=== PATIENT | male | born 1955 | race Caucasian/White ===

== ENCOUNTER → 2016-10-28 | Outpatient (CLI) | payer BC ==
[2016-10-28 11:36] LABS: ALT 36 U/L (21-72); AST 19 U/L (17-59); Alkaline Phosphatase 93 U/L (38-126); Anion Gap 9 mmol/L; Bilirubin, Delta 0.4 mg/dL (0.0-0.2); Blood Urea Nitrogen 29 mg/dL (9-20); Calcium 9.3 mg/dL (8.4-10.2); Carbon Dioxide 32 mmol/L (22-30); Chloride 102 mmol/L (98-107); Cholesterol 190 mg/dL (<200); Glucose 94 mg/dL (74-99); HDL Cholesterol 56 mg/dL (40-60); Non-African American GFR(MDRD) >60 (>60 ml/min/1.73 sqM); Potassium 4.7 mmol/L (3.5-5.1); Sodium 143 mmol/L (137-145); Total Bilirubin 0.7 mg/dL (0.2-1.3); Total Protein 6.6 g/dL (6.3-8.2); Triglycerides 103 mg/dL (<150)
== END | disposition home or self-care (01) ==
LOC: LABWHC1 10-27 11:57
PROVIDERS: ATTEND Physician Assistant
DX: E78.5 Hyperlipidemia, unspecified (principal); D72.829 Elevated white blood cell count, unspecified; I10 Essential (primary) hypertension; I50.9 Heart failure, unspecified; R05 Cough; Z95.0 Presence of cardiac pacemaker
CPT/HCPCS: 36415; 80048; 80061; 80076; 83880

== ENCOUNTER → 2017-03-12 | Outpatient (CLI) | payer BC ==
[2017-03-12 11:09] LABS: Bilirubin, Delta 0.4 mg/dL (0.0-0.2); Total Bilirubin 0.9 mg/dL (0.2-1.3); Total Protein 6.1 g/dL (6.3-8.2)
--- NOTE | 2017-03-12 12:11 | ECHOF ---
Referral Reason:E78.5 hyperlipidemia I50.22 chf I10 htn MEASUREMENTS -------- HEIGHT: 182.9 cm WEIGHT: 127.0 kg BP: IVSd: 1.6 cm (0.6 - 1.1) LVIDd: 5.6 cm (3.9 - 5.3) LVPWd: 1.5 cm (0.6 - 1.1) IVSs: 2.0 cm LVIDs: 4.7 cm LVPWs: 2.0 cm LAESV Index (A-L): 29.69 ml/m Ao Diam: 4.0 cm (2.0 - 3.7) AV Cusp: 2.8 cm (1.5 - 2.6) LA Diam: 4.7 cm (2.7 - 3.8) MV EXCURSION: 14.056 mm (> 18.000) MV EF SLOPE: 44 mm/s (70 - 150) EPSS: 1.7 cm MV E Kurtis: 0.76 m/s MV DecT: 325 ms MV A Kurtis: 1.04 m/s MV E/A Ratio: 0.73 AR PHT: 617 ms RAP: 5.00 mmHg RVSP: 27.92 mmHg FINDINGS -------- Sinus rhythm. Pacemaker This was a technically adequate study. There is moderate concentric left ventricular hypertrophy. There is moderate global hypokinesis of LV . Overall left ventricular systolic function is mild-moderately impaired with, an EF between 40 - 45 %. The right ventricle is normal in size and function. LA is midly dilated 29-33ml/m2. The right atrium is normal in size. The aortic valve is trileaflet, and appears structurally normal. No aortic stenosis or regurgitation. There is mild aortic regurgitation. The mitral valve is normal. Mild mitral regurgitation is present. Mild tricuspid regurgitation present. The right ventricular systolic pressure, as measured by Doppler, is 27.92mmHg. Trace/mild (physiologic) pulmonic regurgitation. The aortic root is mildy dilated. There is no pericardial effusion. CONCLUSIONS -------- 1. Sinus rhythm. 2. The right ventricular systolic pressure, as measured by Doppler, is 27.92mmHg. 3. Trace/mild (physiologic) pulmonic regurgitation. 4. The aortic root is mildy dilated. 5. There is no pericardial effusion. 6. This was a technically adequate study. 7. There is moderate concentric left ventricular hypertrophy. 8. Overall left ventricular systolic function is mild-moderately impaired with, an EF between 40 - 45 %. 9. LA is midly dilated 29-33ml/m2. 10. The aortic valve is trileaflet, and appears structurally normal. No aortic stenosis or regurgitation. 11. There is mild aortic regurgitation. 12. Mild mitral regurgitation is present. 13. Mild tricuspid regurgitation present. BATCH MIXER: Jelena Pinto RDCS
== END | disposition home or self-care (01) ==
LOC: RADECHMAIN 10:05
PROVIDERS: ATTEND Physician Assistant
DX: I08.3 Combined rheumatic disorders of mitral, aortic and tricuspid valves (principal); I42.8 Other cardiomyopathies; I11.0 Hypertensive heart disease with heart failure; I50.22 Chronic systolic (congestive) heart failure; E78.5 Hyperlipidemia, unspecified
CPT/HCPCS: 36415; 80061; 80076; 93306

== ENCOUNTER → 2017-03-22 | Outpatient (CLI) | payer BC ==
--- NOTE | 2017-03-22 15:32 | CONS ---
DATE OF CONSULTATION: 03/22/2017 CONSULTATION/NEW PATIENT EVALUATION A 61-year-old gentleman who has been evaluated in the [facility] for obstructive sleep apnea-hypopnea syndrome. 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 HISTORY OF PRESENT ILLNESS/SLEEP-WAKE EVALUATION: Patient had been diagnosed with obstructive sleep apnea about 8 years ago. Since that time he is on treatment with CPAP. He changed his CPAP unit about 6 years ago. He continued to use his CPAP equipment every night. I checked the reading from his machine. It showed 98.9% usage of the machine, 78.9% for more than 4 hours. Machine is on automatic regimen according to this reading with the range of the pressure from 12 cm of water up to 20 cm of water. Average pressure in the mean range is 12.5 cm of water and a peak average pressure 14.9 cm of water, apnea-hypopnea index reading from the machine is 1.1, which is normal. SLEEP SCHEDULE: Patient has sleep schedule on working days from around 9:00 p.m. until 4:15 a.m. and on days off, he sleeps around 10 or 11:00 p.m. until 7:00 a.m. FALLING ASLEEP: No problem falling asleep. No TV in bedroom. DURING SLEEP: Patient sleeps by himself. Wakes up from sleep 2 times with nocturia. No history of hypnagogical hallucinations, sleep paralysis or cataplexy. DURING THE DAY/WAKE STATE: [place] Sleepiness Scale is 4. Patient sometimes takes naps in the late morning around 10 or 10:30 a.m. PAST MEDICAL HISTORY: Positive for atrial flutter status post cardiac ablation, hypertension, swelling of the legs, hyperlipidemia, hiatal hernia, perforated colon. Asthma possibly secondary to allergies. PAST SURGICAL HISTORY: Surgery for perforated colon, left ankle fusion, pacemaker insertion, ablation. MEDICATIONS: Lasix, Coreg, Lisinopril, Flomax, Eliquis, Allopurinol, omeprazole, simvastatin, albuterol, Betapace. SOCIAL HISTORY: Positive for smoking for about 20 years; quit 10 years ago. Alcohol consumption occasional, wine up to 2 times per week 2 drinks. FAMILY HISTORY: Hypertension, heart problems, arthritis, sleep apnea, acid reflux. REVIEW OF SYSTEMS: Awakenings from sleep with nocturia, sometimes swelling of the legs, sometimes episodes of shortness of breath and wheezing. No fevers. No double vision. No recent chest pain. No shortness of breath. No abdominal pain. No bleeding episodes. No blood in urine. No seizure episodes. PHYSICAL EXAMINATION: GENERAL: A pleasant 61-year-old gentleman without distress. VITAL SIGNS: BP 151/82, HR 78, RR 16. Height 5 feet 10-1/2, weight 285. BMI 40, neck 18-3/4 inches in circumference. Temperature 97.8. Oxygen saturation at room air 96%. HEENT: PERRLA, EOMI. Evaluation of oropharynx showed extremely low position of soft palate. NECK: Supple. No JVD. Thyroid is not palpable. LUNGS: Clear to percussion and to auscultation. Good air exchange. No wheezing or rhonchi. HEART: S1, S2 regular. No murmurs, gallops or rubs. ABDOMEN: Obese. Soft and nontender. Bowel sounds are present. No organomegaly appreciated. EXTREMITIES: 1+ ankle edema on the left ankle. LANDSCAPING SPECIALIST: Awake, alert, and oriented x3. Cranial nerves 2 to 7 intact. There is no fasciculation or atrophy noted. No focal deficits observed. IMPRESSION: 1. Extremely low position of soft palate, obesity, history of obstructive sleep apnea diagnosed in different institution 8 years ago on treatment with CPAP every night, reading from the machine indicates normal apnea-hypopnea index. 2. Obesity. 3. Hypertension. 4. History of atrial flutter, status post cardiac ablation. 5. Asthma. 6. History of allergy. 7. Status post surgery for repair of a perforated colon. 8. Hyperlipidemia. 9. Hiatal hernia and acid reflux. 10. Swelling of ankle. 11. Status post left ankle fusion surgery. PLAN: 1. Patient will continue to use CPAP equipment every night for the whole night and she should use it 100% of the night, more than 4 hours. 2. Losing weight. 3. Will try to get results of previous sleep studies for the patient. 4. Precautions related to driving. No driving if feeling any sleepiness. The patient is aware about civil and criminal liability for unsafe driving. 5. I would recommend maintenance of wakefulness test for confirmation that patient has normal alertness during the day. Thank you very much for referring this patient for consultation. Sincerely, Ahsan Diehl MD, PhD, FAASM. Diplomat of [employer], Sleep Medicine Board by [employer] [facility] [place]
== END | disposition home or self-care (01) ==
LOC: SLEEP 09:52
PROVIDERS: ATTEND Internal Medicine
DX: G47.33 Obstructive sleep apnea (adult) (pediatric) (principal); Z79.899 Other long term (current) drug therapy; Z87.891 Personal history of nicotine dependence; K21.9 Gastro-esophageal reflux disease without esophagitis; E66.9 Obesity, unspecified; Z68.41 Body mass index [BMI] 40.0-44.9, adult; I10 Essential (primary) hypertension; E78.5 Hyperlipidemia, unspecified; J45.909 Unspecified asthma, uncomplicated; M25.473 Effusion, unspecified ankle; I48.92 Unspecified atrial flutter; Z98.890 Other specified postprocedural states; Z91.09 Other allergy status, other than to drugs and biological substances

== ENCOUNTER → 2017-06-20 | Day surgery (SDC) | payer BC ==
[~2017-06-20] MED LIST: DIAZEPAM 5 MG TAB PO STA; HYDROcodone/APAP 5-325MG 1 EACH TAB PO PRN; PREMYELOGRAM MEDICATION REVIEW 1 EACH MISC PO ONE
[2017-06-20 10:05] VITALS: RESP 20
--- NOTE | 2017-06-20 10:31 | FL ---
EXAMINATION TYPE: FL myelogram cervical DATE OF EXAM: 06/20/2017 COMPARISON: CT abdomen pelvis July 11, 2016. HISTORY: Cervical disc displacement per order. History of pacemaker. TECHNIQUE: Fluoroscopic assisted myelogram. A total of 3 minutes 48 seconds of fluoroscopic time was utilized during procedure. A total of 12 cc of Omnipaque 240 was injected. FINDINGS: Procedure of fluoroscopic assisted lumbar myelogram for subsequent CT cervical spine was ex plained to patient. Benefits alternatives, and risks were discussed. An informed consent was then obt ained. Patient was placed in prone position. Prior CT is reviewed and shows cord terminates at superior L2 l evel. There is scoliosis with multilevel disc space narrowing and spurring noted. Superior L3 level i s chosen as target. Overlying skin is cleansed with Betadine. Lidocaine is used as anesthetic into th e skin and deeper tissue. Under fluoroscopic guidance, lumbar spinal canal is accessed with a 20-gaug e spinal needle. At this point under fluoroscopic guidance contrast was instilled into spinal canal. At this point nee dle was withdrawn. There is successful filling of spinal canal seen on images saved. Incidental note is made of some spinal canal stenosis at L3-L4 to greater degree at L4-L5 levels along lateral aspect . Patient is placed in reverse Trendelenburg position to allow flow to the cervical spine with neck f lexed. The patient was taken to CT for CT imaging. This report will be dictated separately. Vital signs were monitored and were stable before, during, and after the procedure. Interventional radiology nurse wa s available throughout the entire procedure. IMPRESSION: Successful, uncomplicated fluoroscopic assisted lumbar myelogram for contrast injection f or subsequent CT study.
[2017-06-20 10:40] VITALS: TEMP 97.8
--- NOTE | 2017-06-20 10:44 | CT ---
EXAMINATION TYPE: CT cervical spine w con DATE OF EXAM: 06/20/2017 COMPARISON: CT cervical spine March 08, 2016 HISTORY: Cervical disc displacement CT DLP: 936.20 mGycm. Automated Exposure Control for Dose Reduction was Utilized. TECHNIQUE: CT scan of the cervical spine is obtained with intrathecal contrast, axial images are obt ained, sagittal and coronal reformatted images are also reviewed. FINDINGS: Cervical spine is visualized in its entirety from C1 through upper thoracic levels. There is redemonstration of a prominent rotary dextroconvex scoliosis centered at C5 level with moderate he ight loss of the left C6 vertebra and mild height loss of the anterior left C7 vertebra redemonstrate d both which appear sclerotic. There is loss of normal cervical curvature on sagittal images redemons trated. Prevertebral soft tissue appears within normal limits. The C1-C2 articulation is within norm al limits on the coronal images. Successful contrast opacification of cervical spinal canal is noted. Axial images at C2-C3 level shows small focal central disc protrusion mildly effacing anterior thecal sac seen best on axial image 22 less pronounced on sagittal images. There are uncovertebral facet de generative changes bilaterally causing severe right and moderate left-sided neural foraminal narrowin g. Axial images at C3-C4 level show uncovertebral facet degenerative changes bilaterally, right greater than left causing moderate to severe bilateral neural foraminal narrowing. There is right paracentral posterior spur disc complex effacing anterolateral thecal sac on axial image 28. Images at C4-C5 level show slight grade 1 anterolisthesis of C4 on C5 seen best on sagittal image 30 along right aspect. There is posterior spur disc complex effacing anterior thecal sac nearly up to ve ntral surface of spinal cord on axial image 36. There is mild to moderate left-sided neural foraminal narrowing due to marginal spurring. There is more mild right-sided neural foraminal narrowing at thi s level identified. Axial images at C5-C6 level show prominent posterior spur effacing anterior thecal sac up to ventral surface of spinal cord which is indented on axial image 42. There is prominent left-sided marginal sp urring causing advanced left-sided neural foraminal narrowing. Right-sided neural foramina is widely patent on axial image 39. Axial images at C6-C7 level show prominent posterior spur disc complex effacing anterior thecal sac w ith cord left of midline near axial image 49, spurring extends to ventral surface of spinal cord. The re is moderate to severe left-sided neural foraminal narrowing due to marginal spurring near axial im age 46. Right-sided neural foramen is patent. Axial images at C7-T1 level show improvement on spinal canal near axial image 55 through 58. There is slight grade 1 anterolisthesis of C7 on T1 along left aspect with some posterior in left lateral spu rring effacing anterior and left lateral thecal sac near axial image 57. This is confirmed near coron al images 58 and 59 with some effacement of central C7 nerve likely present. Left-sided neural forame n is patent on axial image 55. Right side is patent near axial image 59. There is partial visualization of pacemaker wires in the upper thorax. There is fairly moderate calci fied plaque in the carotid arteries to level of carotid bulb. Need to further investigate by carotid ultrasound should be based on clinical correlation. IMPRESSION: Dextroconvex rotary scoliosis with multilevel degenerative changes in the cervical spine as detailed above, there is better visualization of spinal canal effacement or neural foraminal narro wing on myelogram study versus prior exam.
[2017-06-20 15:09] VITALS: PULSE 75
[2017-06-20 15:14] VITALS: BP 163/75
== END ==
LOC: RADPROMAIN 07:03
PROVIDERS: ATTEND Orthopaedic Surgery
DX: M50.21 Other cervical disc displacement, high cervical region (principal); M41.82 Other forms of scoliosis, cervical region; M50.31 Other cervical disc degeneration, high cervical region; M43.12 Spondylolisthesis, cervical region; M25.78 Osteophyte, vertebrae; M48.06 Spinal stenosis, lumbar region; Z95.0 Presence of cardiac pacemaker; Z79.01 Long term (current) use of anticoagulants; Z79.82 Long term (current) use of aspirin
CPT/HCPCS: 62284; 62302; 72126; Q9966

== ENCOUNTER 2018-01-07 18:04 | Inpatient (IN) | payer BC ==
--- NOTE | 2018-01-07 18:26 | ED ---
General Adult HPI - General Chief complaint: Shortness of Breath Stated complaint: SOB Time Seen by Provider: 01/07/18 18:16 Source: patient, RN notes reviewed Mode of arrival: EMS Limitations: physical limitation - History of Present Illness Initial comments: Patient is a pleasant [age]-year-old male presenting to the emergency Department with complaints of dyspnea. Onset was this morning. Patient did use nebulizer treatment with improvement of symptoms. Patient has used it 2-3 more times since then with again improvement of symptoms. Symptoms worsen prior to arrival with exertion. Patient has noticed symptoms been exertional throughout the day. Patient does have occasional cough without sputum production. Patient denies ever having chest discomfort. No leg pain or leg swelling. Patient does have a known history of asthma. Patient did have similar symptoms within the past couple months associated with pneumonia. No fevers. - Related Data Home Medications Medication Instructions Recorded Confirmed Omeprazole [PriLOSEC] 20 mg PO DAILY@1200 04/06/15 01/07/18 Tamsulosin HCl [Flomax] 0.4 mg PO BID 04/06/15 01/07/18 Apixaban [Eliquis] 5 mg PO BID 12/02/15 01/07/18 Aspirin EC [Ecotrin Low Dose] 81 mg PO DAILY@1200 12/02/15 01/07/18 Lisinopril [Zestril] 20 mg PO AC-BID 12/02/15 01/07/18 Finasteride 5 mg PO HS 04/14/16 01/07/18 Simvastatin 40 mg PO HS 04/14/16 01/07/18 Carvedilol [Coreg] 25 mg PO AC-BID 04/18/16 01/07/18 Meloxicam 15 mg PO DAILY 04/18/16 01/07/18 Sotalol HCl [Betapace] 120 mg PO BID 05/17/16 01/07/18 Albuterol Nebulized [Ventolin 2.5 mg INHALATION RT-QID PRN 09/29/16 01/07/18 Nebulized] Potassium Chloride ER [K-Dur 20] 20 meq PO DAILY 09/29/16 01/07/18 Albuterol Sulfate [Proair Hfa] 2 puff INHALATION RT-BID PRN 11/13/17 01/07/18 Vitamin A 10,000 unit PO DAILY@1200 11/13/17 01/07/18 Furosemide [Lasix] 40 mg PO HS 01/07/18 01/07/18 HYDROcodone/APAP 10-325MG [[place] 1 tab PO BID PRN 01/07/18 01/07/18 10-325] tiZANidine [Zanaflex] 2 mg PO HS 01/07/18 01/07/18 Previous Rx's Medication Instructions Recorded Allopurinol [Zyloprim] 100 mg PO DAILY@1200 tab 11/16/17 Allergies Allergy/AdvReac Type Severity Reaction Status Date / Time No Known Allergies Allergy Verified 01/07/18 18:35 Review of Systems ROS Statement: Those systems with pertinent positive or pertinent negative responses have been documented in the HPI. ROS Other: All systems not noted in ROS Statement are negative. Constitutional: Denies: fever Eyes: Denies: eye pain ENT: Denies: ear pain Respiratory: Reports: cough, dyspnea Cardiovascular: Denies: chest pain Endocrine: Reports: fatigue Gastrointestinal: Denies: abdominal pain Genitourinary: Denies: dysuria Musculoskeletal: Denies: back pain Skin: Denies: rash Neurological: Denies: headache Past Medical History Past Medical History: Atrial Flutter, Asthma, Heart Failure, GERD/Reflux, Hyperlipidemia, Hypertension, Osteoarthritis (OA), Prostate Disorder, Sleep Apnea/CPAP/BIPAP Additional Past Medical History / Comment(s): admitted to [facility] w/ pne, copd, asthma, other past hx includes GOUT, a flutter, scoliosis, ddd(neck), ablation , back pain, neck problems History of Any Multi-Drug Resistant Organisms: None Reported Date of last positivie culture/infection: 04/26/2016 MDRO Source:: Bilat Leg Past Surgical History: Bowel Resection, Cardiac Ablation, Pacemaker, Tonsillectomy Additional Past Surgical History / Comment(s): CRISELDA AND PLATE IN ankle(left), vasectomy, ruptured bowel- colon resection - colostomy reversal April 2016 Past Anesthesia/Blood Transfusion Reactions: No Reported Reaction Type of Cardiac Device: Permanent Pacemaker Device Placement Date:: 2014 Past Psychological History: Anxiety Smoking Status: Former smoker Past Alcohol Use History: Occasional Past Drug Use History: None Reported - Past Family History Father Family Medical History: Cancer, Prostate Disorder Additional Family Medical History / Comment(s): PROSTATE AND LUNG CANCER, IRREGULAR HEART BEAT Mother Family Medical History: Diabetes Mellitus, Hypertension, Osteoarthritis (OA) General Exam Limitations: physical limitation General appearance: alert, in no apparent distress Head exam: Present: atraumatic Eye exam: Present: normal appearance, PERRL ENT exam: Present: normal oropharynx Neck exam: Present: normal inspection Respiratory exam: Present: normal lung sounds bilaterally Cardiovascular Exam: Present: tachycardia GI/Abdominal exam: Present: soft. Absent: tenderness Extremities exam: Present: normal inspection. Absent: pedal edema, calf tenderness Neurological exam: Present: alert Psychiatric exam: Present: normal affect, normal mood Skin exam: Present: normal color Course Vital Signs 01/07/18 01/07/18 01/07/18 18:09 18:59 19:01 Temperature 98.0 F Pulse Rate 111 H 105 H Respiratory 20 18 18 Rate Blood Pressure 152/91 148/91 O2 Sat by Pulse 100 94 L Oximetry 01/07/18 01/07/18 01/07/18 19:12 20:24 21:07 Temperature 98.0 F Pulse Rate 105 H 105 H 105 H Respiratory 22 18 20 Rate Blood Pressure 148/91 146/78 161/86 O2 Sat by Pulse 100 99 99 Oximetry EKG Findings - EKG Comments: EKG Findings:: Paced rhythm at 110. QRS 144. QT 376. QTc 508. Right axis. Wide-complex QRS. Nonspecific ST-T. Procedures - ABG Interpretation Ph: 7.41 PCO2: 39.3 PO2: 100 Interpretation: normal Medical Decision Making - Medical Decision Making Patient reevaluated. Patient and family updated. Heparin will not be provided at this time secondary to decreasing hemoglobin and Hemoccult-positive. Case was discussed in detail with Dr. Weiss, who will admit his patient. Dr. Spears will be consult with consult to regarding to concern for GI bleed. Cardiology will also be consulted. - Lab Data Result diagrams: 01/07/18 18:50 01/07/18 18:50 Lab Results 01/07/18 01/07/18 01/07/18 Range/Units 18:22 18:50 18:50 WBC 14.6 H (3.8-10.6) k/uL RBC 3.73 L (4.30-5.90) m/uL Hgb 8.5 L (13.0-17.5) gm/dL Hct 28.4 L (39.0-53.0) % MCV 76.2 L D (80.0-100.0) fL MCH 22.8 L (25.0-35.0) pg MCHC 30.0 L (31.0-37.0) g/dL RDW 16.7 H (11.5-15.5) % Plt Count 389 (150-450) k/uL Neutrophils % 86 % Lymphocytes % 8 % Monocytes % 4 % Eosinophils % 1 % Basophils % 0 % Neutrophils # 12.5 H (1.3-7.7) k/uL Lymphocytes # 1.2 (1.0-4.8) k/uL Monocytes # 0.6 (0-1.0) k/uL Eosinophils # 0.2 (0-0.7) k/uL Basophils # 0.0 (0-0.2) k/uL Hypochromasia Marked Poikilocytosis Slight Anisocytosis Slight Microcytosis Slight PT (9.0-12.0) sec INR (<1.2) APTT (22.0-30.0) sec D-Dimer (<0.60) mg/L FEU Sample Site left radial ABG pH 7.41 (7.35-7.45) ABG pCO2 39 (35-45) mmHg ABG pO2 100 (83-108) mmHg ABG HCO3 25 (21-25) mmol/L ABG Total CO2 26 H (19-24) mmol/L ABG O2 Saturation 98.1 H (94-97) % ABG Base Excess 0.3 mmol/L César Test Yes FiO2 28 % Sodium (137-145) mmol/L Potassium (3.5-5.1) mmol/L Chloride (98-107) mmol/L Carbon Dioxide (22-30) mmol/L Anion Gap mmol/L BUN (9-20) mg/dL Creatinine (0.66-1.25) mg/dL Est GFR (CKD-EPI)AfAm (>60 ml/min/1.73 sqM) Est GFR (CKD-EPI)NonAf (>60 ml/min/1.73 sqM) Glucose (74-99) mg/dL Calcium (8.4-10.2) mg/dL Total Bilirubin (0.2-1.3) mg/dL AST (17-59) U/L ALT (21-72) U/L Alkaline Phosphatase (38-126) U/L Total Creatine Kinase 102 (55-170) U/L CK-MB (CK-2) 3.0 H* (0.0-2.4) ng/mL CK-MB (CK-2) Rel Index 2.9 Troponin I 0.087 H* (0.000-0.034) ng/mL NT-Pro-B Natriuret Pep pg/mL Total Protein (6.3-8.2) g/dL Albumin (3.5-5.0) g/dL Stool Occult Blood (Negative) 01/07/18 01/07/18 01/07/18 Range/Units 18:50 18:50 18:50 WBC (3.8-10.6) k/uL RBC (4.30-5.90) m/uL Hgb (13.0-17.5) gm/dL Hct (39.0-53.0) % MCV (80.0-100.0) fL MCH (25.0-35.0) pg MCHC (31.0-37.0) g/dL RDW (11.5-15.5) % Plt Count (150-450) k/uL Neutrophils % % Lymphocytes % % Monocytes % % Eosinophils % % Basophils % % Neutrophils # (1.3-7.7) k/uL Lymphocytes # (1.0-4.8) k/uL Monocytes # (0-1.0) k/uL Eosinophils # (0-0.7) k/uL Basophils # (0-0.2) k/uL Hypochromasia Poikilocytosis Anisocytosis Microcytosis PT 10.2 (9.0-12.0) sec INR 1.0 (<1.2) APTT 23.7 (22.0-30.0) sec D-Dimer 1.10 H (<0.60) mg/L FEU Sample Site ABG pH (7.35-7.45) ABG pCO2 (35-45) mmHg ABG pO2 (83-108) mmHg ABG HCO3 (21-25) mmol/L ABG Total CO2 (19-24) mmol/L ABG O2 Saturation (94-97) % ABG Base Excess mmol/L César Test FiO2 % Sodium 141 (137-145) mmol/L Potassium 5.1 (3.5-5.1) mmol/L Chloride 105 (98-107) mmol/L Carbon Dioxide 27 (22-30) mmol/L Anion Gap 9 mmol/L BUN 32 H (9-20) mg/dL Creatinine 1.00 (0.66-1.25) mg/dL Est GFR (CKD-EPI)AfAm >90 (>60 ml/min/1.73 sqM) Est GFR (CKD-EPI)NonAf 79 (>60 ml/min/1.73 sqM) Glucose 88 (74-99) mg/dL Calcium 9.0 (8.4-10.2) mg/dL Total Bilirubin 0.3 (0.2-1.3) mg/dL AST 30 (17-59) U/L ALT 32 (21-72) U/L Alkaline Phosphatase 87 (38-126) U/L Total Creatine Kinase (55-170) U/L CK-MB (CK-2) (0.0-2.4) ng/mL CK-MB (CK-2) Rel Index Troponin I (0.000-0.034) ng/mL NT-Pro-B Natriuret Pep 3060 pg/mL Total Protein 6.2 L (6.3-8.2) g/dL Albumin 3.8 (3.5-5.0) g/dL Stool Occult Blood (Negative) 01/07/18 Range/Units 19:47 WBC (3.8-10.6) k/uL RBC (4.30-5.90) m/uL Hgb (13.0-17.5) gm/dL Hct (39.0-53.0) % MCV (80.0-100.0) fL MCH (25.0-35.0) pg MCHC (31.0-37.0) g/dL RDW (11.5-15.5) % Plt Count (150-450) k/uL Neutrophils % % Lymphocytes % % Monocytes % % Eosinophils % % Basophils % % Neutrophils # (1.3-7.7) k/uL Lymphocytes # (1.0-4.8) k/uL Monocytes # (0-1.0) k/uL Eosinophils # (0-0.7) k/uL Basophils # (0-0.2) k/uL Hypochromasia Poikilocytosis Anisocytosis Microcytosis PT (9.0-12.0) sec INR (<1.2) APTT (22.0-30.0) sec D-Dimer (<0.60) mg/L FEU Sample Site ABG pH (7.35-7.45) ABG pCO2 (35-45) mmHg ABG pO2 (83-108) mmHg ABG HCO3 (21-25) mmol/L ABG Total CO2 (19-24) mmol/L ABG O2 Saturation (94-97) % ABG Base Excess mmol/L César Test FiO2 % Sodium (137-145) mmol/L Potassium (3.5-5.1) mmol/L Chloride (98-107) mmol/L Carbon Dioxide (22-30) mmol/L Anion Gap mmol/L BUN (9-20) mg/dL Creatinine (0.66-1.25) mg/dL Est GFR (CKD-EPI)AfAm (>60 ml/min/1.73 sqM) Est GFR (CKD-EPI)NonAf (>60 ml/min/1.73 sqM) Glucose (74-99) mg/dL Calcium (8.4-10.2) mg/dL Total Bilirubin (0.2-1.3) mg/dL AST (17-59) U/L ALT (21-72) U/L Alkaline Phosphatase (38-126) U/L Total Creatine Kinase (55-170) U/L CK-MB (CK-2) (0.0-2.4) ng/mL CK-MB (CK-2) Rel Index Troponin I (0.000-0.034) ng/mL NT-Pro-B Natriuret Pep pg/mL Total Protein (6.3-8.2) g/dL Albumin (3.5-5.0) g/dL Stool Occult Blood Positive (Negative) - Radiology Data Radiology results: report reviewed (Computed tomography scan of the chest negative for pulmonary embolism. Mild interstitial edema.), image reviewed ( Chest x-ray shows some concern for pulmonary edema.) Disposition Clinical Impression: GI hemorrhage, Dyspnea, CHF (congestive heart failure) Disposition: ADMITTED IP TO THIS [facility] Referrals: Elijah Weiss MD [Primary Care Provider] - 1-2 days Decision Time: 21:53
[2018-01-07 19:08] LABS: Anisocytosis Slight; Basophils % (A) 0 %; Eosinophils # (A) 0.2 k/uL (0-0.7); Eosinophils % (A) 1 %; HCT 28.4 % (39.0-53.0); HGB 8.5 gm/dL (13.0-17.5); Hypochromasia Marked; Lymphocytes # (A) 1.2 k/uL (1.0-4.8); Lymphocytes % (A) 8 %; MCH 22.8 pg (25.0-35.0); Mean Platelet Volume 6.9; Microcytosis Slight; Monocytes # (A) 0.6 k/uL (0-1.0); Monocytes % (A) 4 %; Neutrophils # (A) 12.5 k/uL (1.3-7.7); Neutrophils % (A) 86 %; Platelet Count 389 k/uL (150-450); Poikilocytosis Slight; RBC 3.73 m/uL (4.30-5.90); RDW 16.7 % (11.5-15.5); WBC 14.6 k/uL (3.8-10.6)
[2018-01-07 19:11] LABS: D-Dimer 1.1 mg/L FEU (<0.60)
[2018-01-07 19:14] LABS: ALT 32 U/L (21-72); AST 30 U/L (17-59); Albumin 3.8 g/dL (3.5-5.0); Alkaline Phosphatase 87 U/L (38-126); Anion Gap 9 mmol/L; Blood Urea Nitrogen 32 mg/dL (9-20); Carbon Dioxide 27 mmol/L (22-30); Chloride 105 mmol/L (98-107); Glucose 88 mg/dL (74-99); MCV 76.2 fL (80.0-100.0); Partial Thromboplastin Time 23.7 sec (22.0-30.0); Potassium 5.1 mmol/L (3.5-5.1); Prothrombin Time 10.2 sec (9.0-12.0); Sodium 141 mmol/L (137-145); Total Bilirubin 0.3 mg/dL (0.2-1.3); Total Protein 6.2 g/dL (6.3-8.2)
[2018-01-07 19:32] LABS: Troponin I 0.087 ng/mL (0.000-0.034)
[2018-01-07] MEDS ORDERED: RX INFO: IV CONTRAST WAS GIVEN 1 EACH MISC MISCELLANE PRN (19:35)
[2018-01-07] MEDS ORDERED: PANTOPRAZOLE 40 MG/10 ML VIAL IVP STA (19:36)
--- NOTE | 2018-01-07 19:42 | XR ---
EXAMINATION: XR chest 2V DATE AND TIME: 01/07/2018 7:35 PM ORDERING PROVIDER: Derek Onofre DO CLINICAL INDICATION: difficulty breathing TECHNIQUE: AP and lateral COMPARISON: 11/14/2017 DESCRIPTION: The overlying soft tissues are very prominent; this was also the case on the prior study. There is moderate marked silhouetting of the pulmonary vasculature bilaterally with partial silhouett ing of the left hemidiaphragm. The findings are consistent with interstitial phase pulmonary edema, p resumably cardiogenic pulmonary edema, with partial airlessness of the left lower lobe. Cardiac pacemaker and EKG leads noted. The cardiac silhouette is moderately enlarged, unchanged. The pleural spaces are negative. The skeletal structures are intact without focal findings. IMPRESSION: MODERATE-MARKED INTERSTITIAL PHASE PULMONARY EDEMA.
[2018-01-07 20:23] LABS: ABG Base Excess 0.3 mmol/L; ABG HCO3 25 mmol/L (21-25); ABG Oxygen Saturation 98.1 % (94-97); ABG PCO2 39 mmHg (35-45); ABG PH 7.41 (7.35-7.45); ABG PO2 100 mmHg (83-108); ABG TCO2 26 mmol/L (19-24)
[2018-01-07] MEDS ORDERED: SOTALOL 120 MG TAB PO STA (21:10)
[2018-01-07] MEDS ORDERED: LISINOPRIL 20 MG TAB PO STA (21:11)
[2018-01-07] MEDS ORDERED: CARVEDILOL 12.5 MG TAB PO STA (21:11)
--- NOTE | 2018-01-07 21:29 | CT ---
EXAMINATION TYPE: CT angio chest DATE OF EXAM: 01/07/2018 8:46 PM COMPARISON: 01/05/2016 HISTORY: Chest pain and SOB CT DLP: 950.4 mGycm Automated exposure control for dose reduction was used. CONTRAST: CTA scan of the thorax is performed with IV Contrast, patient injected with 100 mL of Omnipaque 350, pulmonary embolism protocol. . FINDINGS: LUNGS: The lungs are grossly clear, but there is interstitial prominence at the periphery consistent with septal lines, likely mild interstitial phase pulmonary edema. There is no pulmonary consolidatio n. There is no pleural effusion or pneumothorax. The tracheobronchial tree is patent. MEDIASTINUM: There is satisfactory enhancement of the pulmonary artery and its branches, there is no CT evidence for pulmonary embolism. There are no greater than 1 cm hilar or mediastinal lymph nodes. Mild-moderate cardiomegaly noted, with prominent coronary calcifications. Pulmonary arterial dilati on noted, can correlate with a clinical diagnosis of pulmonary hypertension. No pericardial effusion. OTHER: No additional significant abnormality is seen. IMPRESSION: 1. NEGATIVE FOR PULMONARY EMBOLISM. 2. MILD INTERSTITIAL PHASE PULMONARY EDEMA, LIKELY CARDIOGENIC ETIOLOGY.
[2018-01-07] MEDS: SODIUM CHLORIDE 0.9% 1,000 ML IV SCH (22:20)
[2018-01-07] MEDS: FUROSEMIDE 10 MG/ML 4 ML VIAL IV SCH (22:21)
[2018-01-07] MEDS: NITROGLYCERIN OINT 1 INCH/GM PACKET TOPICAL SCH (22:25)
[2018-01-08 03:34] LABS: Anisocytosis Slight; Basophils % (A) 0 %; Eosinophils # (A) 0.1 k/uL (0-0.7); Eosinophils % (A) 1 %; HCT 25.6 % (39.0-53.0); HGB 7.5 gm/dL (13.0-17.5); Hypochromasia Marked; Lymphocytes # (A) 1.1 k/uL (1.0-4.8); Lymphocytes % (A) 11 %; MCH 22.3 pg (25.0-35.0); MCHC 29.2 g/dL (31.0-37.0); MCV 76.6 fL (80.0-100.0); Mean Platelet Volume 7.2; Microcytosis Slight; Monocytes # (A) 0.7 k/uL (0-1.0); Monocytes % (A) 6 %; Neutrophils # (A) 8.6 k/uL (1.3-7.7); Neutrophils % (A) 81 %; Platelet Count 323 k/uL (150-450); RBC 3.35 m/uL (4.30-5.90); RDW 17.1 % (11.5-15.5); WBC 10.6 k/uL (3.8-10.6)
[2018-01-08 04:13] LABS: Creatine Kinase MB 2.4 ng/mL (0.0-2.4); Troponin I 0.082 ng/mL (0.000-0.034)
[2018-01-08] MEDS: FUROSEMIDE 10 MG/ML 4 ML VIAL IV SCH ×2 (06:08→20:13)
[2018-01-08 07:54] LABS: Creatine Kinase MB 2.6 ng/mL (0.0-2.4); Troponin I 0.073 ng/mL (0.000-0.034)
[2018-01-08] MEDS: NITROGLYCERIN OINT 1 INCH/GM PACKET TOPICAL SCH (08:26)
[2018-01-08] MEDS ORDERED: FUROSEMIDE 10 MG/ML 2 ML VIAL IV ONE (08:29)
[2018-01-08] MEDS ORDERED: ALBUTEROL NEBULIZED 2.5 MG/3 ML INHALATION PRN (08:32)
[2018-01-08] MEDS: PANTOPRAZOLE 40 MG/10 ML VIAL IVP SCH (08:46)
--- NOTE | 2018-01-08 10:20 | CONS ---
CONSULTATION CHIEF COMPLAINT: Shortness of breath. Bandar is a 62-year-old gentleman with history of paroxysmal atrial flutter, congestive heart failure, status post permanent pacemaker, known mild LV systolic dysfunction, who presented to hospital complaining of shortness of breath. 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 An EKG on him shows a paced rhythm. Labs showed that he is anemic with a hemoglobin of 7.5. This is new compared to the hemoglobin which at baseline is already low at 9. The patient denies chest pain, palpitations, or syncope. His troponins are in the ventura zone at 0.08, 0.08 and 0.07 without any definite pattern to it and they have not gone up or down and they are very similar to the troponins that he has had on prior admissions. BNP is elevated at 3060. Stool occult blood is positive. It is unclear if the patient had any workup for anemia or not. An echocardiogram on him at last admission showed moderate to severe LV systolic dysfunction with an ejection fraction of 35%. PAST MEDICAL HISTORY: Past medical history is significant for cardiomyopathy, paroxysmal atrial fibrillation status post ablation, hypertension, COPD. MEDICATIONS: Medications at home include Eliquis 5 b.i.d., Zyloprim, ProAir, Zanaflex, Flomax, Betapace, simvastatin, K-Dur, albuterol, Lasix, aspirin. ALLERGIES: There are no known drug allergies. FAMILY HISTORY: Family history is negative for premature coronary artery disease. SOCIAL HISTORY: Negative for current smoking, ETOH abuse or drug abuse. REVIEW OF SYSTEMS: HEENT is unremarkable. CARDIAC: As described above. RESPIRATORY: As described above. GI: Significant for stool positive Hemoccult. GENITOURINARY: Negative. ALLERGY/IMMUNOLOGY: Negative. SKIN: Negative. MUSCULOSKELETAL: Significant for arthritis. PSYCHOSOCIAL: Negative. ENDOCRINE: Negative. HEMATOLOGICAL: Negative. DERM: Negative. CONSTITUTIONAL: Negative. ONCOLOGICAL: Negative. Rest of the system review is not relevant. PHYSICAL EXAMINATION: On exam, he is comfortable at rest. Vital signs are stable. There is no jugular venous distention. Chest exam reveals diminished air entry at the bases. Heart exam reveals first and second heart sounds. No gallop. No murmur. Abdomen is soft, nontender. Exam of extremities did not reveal any edema. Peripheral pulses are felt. EKG showed paced rhythm. CT scan of the chest is negative for pulmonary embolism. Troponins are mildly elevated at 0.08, 0.08 and 0.07, essentially in the same range as it has always been. BNP is elevated at 3060. He is anemic with a hemoglobin of 7.5. ASSESSMENT: 1. Shortness of breath, probably secondary to acute exacerbation of chronic systolic heart failure. 2. Anemia. 3. Paroxysmal atrial fibrillation, status post ablation. 4. Sick sinus syndrome, status post permanent pacemaker. PLAN: Will treat the patient with Coreg. Change the Lasix to IV. Continue the lisinopril, Nitro-Bid, sotalol that he is currently on. I am going to hold the Eliquis until we figure out what is happening with his GI bleed. Thank you for letting us participate in the care of this pleasant gentleman. SCOT / ZEKE: [id number] /
[2018-01-08] MEDS: LISINOPRIL 20 MG TAB PO SCH ×2 (10:34→17:41)
[2018-01-08] MEDS: TAMSULOSIN 0.4 MG CAP.ER.24H PO SCH ×2 (10:34→20:13)
[2018-01-08] MEDS: SOTALOL 120 MG TAB PO SCH ×2 (10:34→20:13)
[2018-01-08] MEDS: CARVEDILOL 12.5 MG TAB PO SCH ×2 (10:35→17:40)
[2018-01-08] MEDS ORDERED: PEG 3350-NA SULF,BICARB,CL/KCL 4,000 ML BOTTLE PO ONE (11:00)
--- NOTE | 2018-01-08 12:41 | P.HPIM ---
History of Present Illness H&P Date: 01/08/18 Chief Complaint: Shortness of breath 62-year-old male who presented to the emergency room with a chief complaint of shortness of breath. The patient states he was at work yesterday and noticed he was short of breath. 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 He stated that he took a break and started to feel better so he continued with his work day. His shortness of breath increased. He states he took two nebulizer treatments and attempted to go back to work. He states his shortness of breath did not resolve and had to prop himself up on one of the school buses in the parking lot to catch his breath. At that time, EMS was called and patient was brought to [facility] for further evaluation. He denies chest pain or pressure. Denies coughing or sputum production. Denies nausea or vomiting. He denies change in bowel patterns. Denies dark tarry stools. Denies hematochezia. Denies hematemesis. The patient takes [place] and Mobic for chronic pain. He states he was taking NSAIDS daily every morning for awhile but stopped approximately 2 months ago after a friend developed GI bleeding and encourage the patient to stop taking NSAIDs. The patient has a history of congestive heart failure with ejection fraction of 30-35%, gastroesophageal reflux disease, hyperlipidemia, hypertension, osteoarthritis, sleep apnea, a flutter/atrial fibrillation, cardiac ablation, pacemaker insertion in 2014, bowel resection with colostomy which has since been reversed, chronic back pain, degenerative disc disease, anxiety, and obesity. Patient states he drinks 2-3 glasses of wine or beer weak. He is a former smoker and quit smoking approximately 9 years ago. 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 Patient states he does use his CPAP nightly. The patient was recently hospitalized from 11/13/2017 until 11/16/2017 with exacerbation of COPD, exacerbation of congestive heart failure, and pneumonia. Chest x-ray: Moderate-marked interstitial phase pulmonary edema CTA of the chest: Negative for pulmonary embolus. Mild interstitial phase pulmonary edema, likely cardiogenic etiology. EKG: Ventricular paced Laboratory data: WBC 14.6. Hemoglobin 8.5. Platelet count 389. Sodium 141. Potassium 5.1. BUN 32. Creatinine 1.0. GFR 79. Troponins: 0.087, 0.082, 0.073 BNP: 3060 D-Dimer: 1.10 Stool for occult blood: Positive The patient was admitted to the hospital under the care of Dr. Weiss. Consultations were placed to cardiology, pulmonology, and general surgery. Review of Systems GENERAL: Patient denies fever. Denies chills. EYES: Denies blurred vision. Denies vision changes. Denies eye pain. EARS, NOSE, MOUTH, & THROAT: Denies headache. Denies sore throat. Denies ear pain. RESPIRATORY: Positive for shortness of breath. Denies cough. Denies sputum production. Denies hemoptysis. CARDIOVASCULAR: Denies chest pain or pressure. Denies palpitations. Denies arrhythmias. GASTROINTESTINAL: Denies abdominal pain. Denies diarrhea. Denies constipation. Denies nausea. Denies vomiting. Denies heartburn. Denies blood in the stool. GENITOURINARY: Denies urinary frequency. Denies burning. Denies dysuria. Denies cloudy urine. Denies blood in the urine. MUSCULOSKELETAL: Positive for chronic neck and back pain. Denies myalgias. Denies joint swelling. Denies decreased range of motion beyond patients baseline. INTEGUMENTARY: Denies pruitis. Denies rash. PSYCHIATRIC: Denies suicidal or homicial ideations. ENDOCRINE: Denies weight change. Denies polydipsia. Denies polyuria. HEMATOLOGIC: Denies bleeding disorders. Past Medical History Past Medical History: Atrial Flutter, Asthma, Heart Failure, GERD/Reflux, Hyperlipidemia, Hypertension, Osteoarthritis (OA), Prostate Disorder, Sleep Apnea/CPAP/BIPAP Additional Past Medical History / Comment(s): admitted to [facility] w/ pne, copd, asthma, other past hx includes GOUT, a flutter, scoliosis, ddd(neck), ablation , back pain, neck problems History of Any Multi-Drug Resistant Organisms: None Reported Date of last positivie culture/infection: 04/26/2016 MDRO Source:: Bilat Leg Past Surgical History: Bowel Resection, Cardiac Ablation, Pacemaker, Tonsillectomy Additional Past Surgical History / Comment(s): CRISELDA AND PLATE IN ankle(left), vasectomy, ruptured bowel- colon resection - colostomy reversal April 2016 Past Anesthesia/Blood Transfusion Reactions: No Reported Reaction Type of Cardiac Device: Permanent Pacemaker Device Placement Date:: 2014 Additional Psychological History / Comment(s): 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 IS INDEPENDANT. Smoking Status: Former smoker Past Alcohol Use History: Occasional Additional Past Alcohol Use History / Comment(s): STARTED SMOKING AT AGE 12, SMOKED 1/2-1 PPD QUIT 9 YEARS AGO Past Drug Use History: None Reported - Past Family History Father Family Medical History: Cancer, Prostate Disorder Additional Family Medical History / Comment(s): PROSTATE AND LUNG CANCER, IRREGULAR HEART BEAT Mother Family Medical History: Diabetes Mellitus, Hypertension, Osteoarthritis (OA) Medications and Allergies Home Medications Medication Instructions Recorded Confirmed Type Omeprazole [PriLOSEC] 20 mg PO DAILY@1200 04/06/15 01/07/18 History Tamsulosin HCl [Flomax] 0.4 mg PO BID 04/06/15 01/07/18 History Apixaban [Eliquis] 5 mg PO BID 12/02/15 01/07/18 History Aspirin EC [Ecotrin Low Dose] 81 mg PO DAILY@1200 12/02/15 01/07/18 History Lisinopril [Zestril] 20 mg PO AC-BID 12/02/15 01/07/18 History Finasteride 5 mg PO HS 04/14/16 01/07/18 History Simvastatin 40 mg PO HS 04/14/16 01/07/18 History Carvedilol [Coreg] 25 mg PO AC-BID 04/18/16 01/07/18 History Meloxicam 15 mg PO DAILY 04/18/16 01/07/18 History Sotalol HCl [Betapace] 120 mg PO BID 05/17/16 01/07/18 History Albuterol Nebulized [Ventolin 2.5 mg INHALATION RT-QID PRN 09/29/16 01/07/18 History Nebulized] Potassium Chloride ER [K-Dur 20] 20 meq PO DAILY 09/29/16 01/07/18 History Albuterol Sulfate [Proair Hfa] 2 puff INHALATION RT-BID PRN 11/13/17 01/07/18 History Vitamin A 10,000 unit PO DAILY@1200 11/13/17 01/07/18 History Allopurinol [Zyloprim] 100 mg PO DAILY@1200 tab 11/16/17 01/07/18 Rx Furosemide [Lasix] 40 mg PO HS 01/07/18 01/07/18 History HYDROcodone/APAP 10-325MG [[place] 1 tab PO BID PRN 01/07/18 01/07/18 History 10-325] tiZANidine [Zanaflex] 2 mg PO HS 01/07/18 01/07/18 History Allergies Allergy/AdvReac Type Severity Reaction Status Date / Time No Known Allergies Allergy Verified 01/07/18 18:35 Physical Exam Vitals: Vital Signs Temp Pulse Pulse Resp BP BP Pulse Ox 01/08/18 12:00 97.3 F L 71 18 128/59 96 01/08/18 08:00 97.7 F 76 20 107/57 95 01/08/18 03:30 97.9 F 73 18 107/54 95 01/07/18 23:10 96.6 F L 57 L 18 126/61 98 01/07/18 22:21 104 H 22 155/87 98 01/07/18 21:07 98.0 F 105 H 20 161/86 99 01/07/18 20:24 105 H 18 146/78 99 01/07/18 19:12 105 H 22 148/91 100 01/07/18 19:01 18 01/07/18 18:59 105 H 18 148/91 94 L 01/07/18 18:09 98.0 F 111 H 20 152/91 100 Intake and Output 01/07/18 01/08/18 01/08/18 22:59 06:59 14:59 Intake Total 530 Output Total 2100 300 Balance -1570 -300 Intake: Intake, IV Titration 50 Amount Sodium Chloride 0.9% 1, 50 000 ml @ 20 mls/hr IV . Q24H [facility] Rx#:[id number] Oral 480 Output: Urine 2100 300 Other: Voiding Method Urinal Urinal # Voids 5 Weight 136.078 kg 136.2 kg GENERAL: This is a 62-year-old male in no apparent distress at the time of examination. Pleasant and cooperative. HEENT: Head is atraumatic, normocephalic. Pupils are equal, round, and reactive to light. Sclerae anicteric. Conjunctivae are clear. Mucus membranes of the mouth are moist. Neck is supple. RESPIRATORY: Clear to ausculation. No wheezes, rales, or rhonchi. No use of accessory muscles. Patient maintaining oxygen saturation greater than 92% on room air. No chest wall tenderness is noted on palpation or with deep breathing. CARDIOVASCULAR: Regular rate and rhythm. S1 and S2 noted. No JVD noted. No S3 or S4 noted. GASTROINTESTINAL: Obese. No distention noted. Abdomen soft and round. Normal active bowel sounds auscultated x 4 quadrants. No pain or tenderness noted upon palpation. INTEGUMENTARY: No cyanosis. No jaundice. No rashes noted. No cellulitis noted. EXTREMITIES: 2+ peripheral pulses. No evidence of peripheral edema. No calf tenderness noted. NEUROLOGIC: Cranial nerves II-XII intact. PSYCHIATRIC: Awake, alert, and oriented X 3. Appropriate affect. Intact judgement and insight. Results CBC & Chem 7: 01/08/18 03:03 01/07/18 18:50 Labs: Abnormal Lab Results - Last 24 Hours (Table) 01/07/18 01/07/18 01/07/18 Range/Units 18:22 18:50 18:50 WBC 14.6 H (3.8-10.6) k/uL RBC 3.73 L (4.30-5.90) m/uL Hgb 8.5 L (13.0-17.5) gm/dL Hct 28.4 L (39.0-53.0) % MCV 76.2 L D (80.0-100.0) fL MCH 22.8 L (25.0-35.0) pg MCHC 30.0 L (31.0-37.0) g/dL RDW 16.7 H (11.5-15.5) % Neutrophils # 12.5 H (1.3-7.7) k/uL D-Dimer (<0.60) mg/L FEU ABG Total CO2 26 H (19-24) mmol/L ABG O2 Saturation 98.1 H (94-97) % BUN (9-20) mg/dL CK-MB (CK-2) 3.0 H* (0.0-2.4) ng/mL Troponin I 0.087 H* (0.000-0.034) ng/mL Total Protein (6.3-8.2) g/dL Crossmatch 01/07/18 01/07/18 01/08/18 Range/Units 18:50 18:50 03:03 WBC (3.8-10.6) k/uL RBC (4.30-5.90) m/uL Hgb (13.0-17.5) gm/dL Hct (39.0-53.0) % MCV (80.0-100.0) fL MCH (25.0-35.0) pg MCHC (31.0-37.0) g/dL RDW (11.5-15.5) % Neutrophils # (1.3-7.7) k/uL D-Dimer 1.10 H (<0.60) mg/L FEU ABG Total CO2 (19-24) mmol/L ABG O2 Saturation (94-97) % BUN 32 H (9-20) mg/dL CK-MB (CK-2) (0.0-2.4) ng/mL Troponin I 0.082 H* (0.000-0.034) ng/mL Total Protein 6.2 L (6.3-8.2) g/dL Crossmatch 01/08/18 01/08/18 01/08/18 Range/Units 03:03 06:46 08:58 WBC (3.8-10.6) k/uL RBC 3.35 L (4.30-5.90) m/uL Hgb 7.5 L (13.0-17.5) gm/dL Hct 25.6 L (39.0-53.0) % MCV 76.6 L (80.0-100.0) fL MCH 22.3 L (25.0-35.0) pg MCHC 29.2 L (31.0-37.0) g/dL RDW 17.1 H (11.5-15.5) % Neutrophils # 8.6 H (1.3-7.7) k/uL D-Dimer (<0.60) mg/L FEU ABG Total CO2 (19-24) mmol/L ABG O2 Saturation (94-97) % BUN (9-20) mg/dL CK-MB (CK-2) 2.6 H* (0.0-2.4) ng/mL Troponin I 0.073 H* (0.000-0.034) ng/mL Total Protein (6.3-8.2) g/dL Crossmatch See Detail Thrombosis Risk Factor Assmnt - Choose All That Apply Any of the Below Risk Factors Present?: Yes Each Factor Represents 1 point: Obesity (BMI >25) Other Risk Factors: Yes Each Risk Factor Represents 2 Points: Age 61-74 years Other congenital or acquired thrombophilia - If yes, enter type in comment: No Thrombosis Risk Factor Assessment Total Risk Factor Score: 3 Thrombosis Risk Factor Assessment Level: Moderate Risk Assessment and Plan Plan: ASSESSMENT: 1. Symptomatic anemia, hemoglobin 8.5 on admission, 7.5 today, hemoglobin in running in the 9s, previous hemoglobin ranging from 11-14, suspected gastrointestinal bleeding, may to secondary to combination of Eliquis and NSAID use, stool for occult blood positive 2. Acute exacerbation of systolic congestive heart failure, EF 35% 3. Chronic obstructive pulmonary disease, no evidence of acute exacerbation 4. History of atrial flutter/fibrillation with previous cardiac ablation, maintained on long-term anticoagulation with Eliquis 5. Elevated d-dimer, CTA negative for pulmonary embolus 6. History of permanent pacemaker insertion in 2014 7. Essential hypertension 8. Hyperlipidemia 9. Obstructive sleep apnea 10. History of perforated sigmoid diverticulitis with bowel resection and colostomy, reversed in 2016 11. Degenerative disc disease 12. Chronic back and neck pain, secondary to above 13. Osteoarthritis 14. Gastro-sexual reflux disease 15. Anxiety, unspecified 16. History of nicotine dependence, in remission, patient quit smoking cigarettes 9 years ago 17. Morbid obesity: BMI 40.7 PLAN: General surgery on consult. Appreciate recommendations and input Patient scheduled for EGD and colonoscopy tomorrow Continue to hold Eliquis and ASA Transfuse 1 unit RBC Repeat hemoglobin in AM Cardiology on consult. Appreciate recommendations and input IV Lasix started per cardiology: 40 mg every 12 hours Pulmonary on consult. Appreciate recommendations and input Home meds as appropriate Monitor labs GI prophylaxis: Protonix 40 mg IV Daily DVT prophylaxis: Venodyne's to bilateral lower extremities Monitor vital signs and address as appropriate Discharge planning: Patient to return home when stable Further recommendations pending patient's course Nurse practitioner note has been reviewed by physician. Signing provider agrees with the documented findings, assessment, and plan of care.
[2018-01-08] MEDS: ALLOPURINOL 100 MG TAB PO SCH (13:06)
--- NOTE | 2018-01-08 13:09 | CDI ---
Last Revision, September 2017 Documentation Clarification Form Date: 01/08/2018 12:00:00 AM From: Lily Barnes RN Admit Date: 01/07/2018 9:56:00 PM Patient Name: Bandar Moreno Visit Number: [id number] ATTENTION: The Clinical Documentation Specialists (CDI) and [facility] Coding Staff appreciate your assistance in clarifying documentation. Please respond to the clarification below the line at the bottom and electronically sign. The CDI & [facility] Coding staff will review the response and follow-up if needed. Please note: Queries are made part of the Legal Health Record. If you have any questions, please contact the author of this message via ITS. Dr. Brian Weiss and Yenny Marie, A diagnosis of anemia lacks specificity to accurately reflect your patients severity of condition and clarification is needed. History/Risk Factors: sob, symptomatic anemia, acute exacerbation of systolic chf Clinical indicators: Hemoglobin: 8.5 -7.5 Hematocrit: 28.4 -25.6 Treatment: monitor labs .9@ 20 mls/hr In order to capture the severity of condition, please clarify the type of anemia and etiology if known: Acute blood loss anemia Acute on chronic blood loss anemia Chronic blood loss anemia Iron deficiency anemia Anemia due to malignancy Unable to determine Other, please specify Please continue to document in your progress notes under the line below and/or on the discharge summary in order to capture severity of illness and risk of mortality. Include clinical findings that support your diagnosis. MTDD
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
[2018-01-08 14:00] VITALS: BMI 40.7
--- NOTE | 2018-01-08 14:20 | P.GSCN ---
<Tory Armas M - Last Filed: 01/08/18 13:59> History of Present Illness Consult date: 01/08/18 Reason for Consult: Possible GI bleed History of present illness: 62-year-old male who is well known to Dr. Chen service is being seen at the request of the attending for a surgical eval after patient was noted to be anemic with a hemoglobin on admission 8.5. 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 According to the patient over the last several days he had been experiencing decreased endurance. Patient denies any hematemesis or blood in stool. Hemoglobin this morning is 7.5 the attending plans on giving 1 unit of packed red blood cells. In the emergency room the patient did have computed tomography scan did rule out for pulmonary emboli. Stool for occult blood was positive. Patient states not certain when he had his last EGD or colonoscopy. denies any change in bowel habits denies any abdominal discomfort denies any nausea vomiting it's noted the patient does have a history of atrial fib/ flutter is on elquis in which he states his last dose was the day before Additionally patient gives a history of daily NSAIDS use stopped 2 months prior and long-term anticoagulation aspirin Elquis does have a history of Jeong's procedure with a sigmoid colectomy for perforated sigmoid diverticulitis. In September 2016 patient did undergo laparoscopic repair of incarcerated incisional ventral hernia done in the left lower quadrant Review of Systems Essentially unremarkable except as mentioned in the present illness Past Medical History Past Medical History: Atrial Flutter, Asthma, Heart Failure, GERD/Reflux, Hyperlipidemia, Hypertension, Osteoarthritis (OA), Prostate Disorder, Sleep Apnea/CPAP/BIPAP Additional Past Medical History / Comment(s): admitted to [facility] w/ pne, copd, asthma, other past hx includes GOUT, a flutter, scoliosis, ddd(neck), ablation , back pain, neck problems History of Any Multi-Drug Resistant Organisms: None Reported Year Discovered:: 04/26/2016 MDRO Source:: Bilat Leg Past Surgical History: Bowel Resection, Cardiac Ablation, Pacemaker, Tonsillectomy Additional Past Surgical History / Comment(s): CRISELDA AND PLATE IN ankle(left), vasectomy, ruptured bowel- colon resection - colostomy reversal April 2016 Past Anesthesia/Blood Transfusion Reactions: No Reported Reaction Type of Cardiac Device: Permanent Pacemaker Device Placement Date:: 2014 Additional Psychological History / Comment(s): 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 Smoking Status: Former smoker Past Alcohol Use History: Occasional Additional Past Alcohol Use History / Comment(s): STARTED SMOKING AT AGE 12, SMOKED 1/2-1 PPD QUIT 9 YEARS AGO Past Drug Use History: None Reported - Past Family History Father Family Medical History: Cancer, Prostate Disorder Additional Family Medical History / Comment(s): PROSTATE AND LUNG CANCER, IRREGULAR HEART BEAT Mother Family Medical History: Diabetes Mellitus, Hypertension, Osteoarthritis (OA) Medications and Allergies Home Medications Medication Instructions Recorded Confirmed Type RX: Omeprazole [PriLOSEC] 20 mg PO DAILY@1200 04/06/15 01/07/18 History RX: Tamsulosin HCl [Flomax] 0.4 mg PO BID 04/06/15 01/07/18 History RX: Apixaban [Eliquis] 5 mg PO BID 12/02/15 01/07/18 History RX: Aspirin EC [Ecotrin Low Dose] 81 mg PO DAILY@1200 12/02/15 01/07/18 History RX: Lisinopril [Zestril] 20 mg PO AC-BID 12/02/15 01/07/18 History RX: Finasteride 5 mg PO HS 04/14/16 01/07/18 History RX: Simvastatin 40 mg PO HS 04/14/16 01/07/18 History RX: Carvedilol [Coreg] 25 mg PO AC-BID 04/18/16 01/07/18 History RX: Meloxicam 15 mg PO DAILY 04/18/16 01/07/18 History RX: Sotalol HCl [Betapace] 120 mg PO BID 05/17/16 01/07/18 History RX: Albuterol Nebulized [Ventolin 2.5 mg INHALATION RT-QID PRN 09/29/16 History Nebulized] RX: Potassium Chloride ER [K-Dur 20 meq PO DAILY 09/29/16 01/07/18 History 20] RX: Albuterol Sulfate [Proair Hfa] 2 puff INHALATION RT-BID PRN 11/13/17 History RX: Vitamin A 10,000 unit PO DAILY@1200 11/13/17 01/07/18 History RX: Allopurinol [Zyloprim] 100 mg PO DAILY@1200 tab 11/16/17 01/07/18 Rx RX: Furosemide [Lasix] 40 mg PO HS 01/07/18 01/07/18 History RX: HYDROcodone/APAP 10-325MG 1 tab PO BID PRN 01/07/18 01/07/18 History [[place] 10-325] RX: tiZANidine [Zanaflex] 2 mg PO HS 01/07/18 01/07/18 History Allergies Allergy/AdvReac Type Severity Reaction Status Date / Time No Known Allergies Allergy Verified 01/07/18 18:35 Surgical - Exam Vital Signs Temp Pulse Resp BP Pulse Ox 98.0 F 111 H 20 152/91 100 01/07/18 18:09 01/07/18 18:09 01/07/18 18:09 01/07/18 18:09 01/07/18 18:09 GENERAL APPEARANCE: The patient is alert, oriented, in no acute distress. VITAL SIGNS: Reviewed HEENT: Head is normocephalic and atraumatic. Pupils are equal and reactive. The nares are patent. Oropharynx is clear without lesions. NECK: Supple without lymphadenopathy. Traches midline. HEART: S1, S2. Regular rate and rhythm. Denies any chest pain no murmur noted monitor paced rhythm with sinus beats LUNGS: No crackles or wheezes are heard. Good air movement bilaterally ABDOMEN: Soft, nontender, nondistended with good bowel sounds. No peritoneal signs. No palpable organomegaly or masses. Denies any nausea vomiting no facial grimacing with palpitation to the abdominal wall well-healed surgical scar to mid abdomen EXTREMITIES: Normal skin color and turgor. No cyanosis, rash, ulceration, clubbing or edema. Radial pedal pulses are 2/4 bilaterally. NEUROLOGICAL: No focal deficits. Strength and sensation are grossly intact. Results - Labs 01/08/18 03:03 01/07/18 18:50 Abnormal Lab Results - Last 24 Hours (Table) 01/07/18 01/07/18 01/07/18 Range/Units 18:22 18:50 18:50 WBC 14.6 H (3.8-10.6) k/uL RBC 3.73 L (4.30-5.90) m/uL Hgb 8.5 L (13.0-17.5) gm/dL Hct 28.4 L (39.0-53.0) % MCV 76.2 L D (80.0-100.0) fL MCH 22.8 L (25.0-35.0) pg MCHC 30.0 L (31.0-37.0) g/dL RDW 16.7 H (11.5-15.5) % Neutrophils # 12.5 H (1.3-7.7) k/uL D-Dimer (<0.60) mg/L FEU ABG Total CO2 26 H (19-24) mmol/L ABG O2 Saturation 98.1 H (94-97) % BUN (9-20) mg/dL CK-MB (CK-2) 3.0 H* (0.0-2.4) ng/mL Troponin I 0.087 H* (0.000-0.034) ng/mL Total Protein (6.3-8.2) g/dL Crossmatch 01/07/18 01/07/18 01/08/18 Range/Units 18:50 18:50 03:03 WBC (3.8-10.6) k/uL RBC (4.30-5.90) m/uL Hgb (13.0-17.5) gm/dL Hct (39.0-53.0) % MCV (80.0-100.0) fL MCH (25.0-35.0) pg MCHC (31.0-37.0) g/dL RDW (11.5-15.5) % Neutrophils # (1.3-7.7) k/uL D-Dimer 1.10 H (<0.60) mg/L FEU ABG Total CO2 (19-24) mmol/L ABG O2 Saturation (94-97) % BUN 32 H (9-20) mg/dL CK-MB (CK-2) (0.0-2.4) ng/mL Troponin I 0.082 H* (0.000-0.034) ng/mL Total Protein 6.2 L (6.3-8.2) g/dL Crossmatch 01/08/18 01/08/18 01/08/18 Range/Units 03:03 06:46 08:58 WBC (3.8-10.6) k/uL RBC 3.35 L (4.30-5.90) m/uL Hgb 7.5 L (13.0-17.5) gm/dL Hct 25.6 L (39.0-53.0) % MCV 76.6 L (80.0-100.0) fL MCH 22.3 L (25.0-35.0) pg MCHC 29.2 L (31.0-37.0) g/dL RDW 17.1 H (11.5-15.5) % Neutrophils # 8.6 H (1.3-7.7) k/uL D-Dimer (<0.60) mg/L FEU ABG Total CO2 (19-24) mmol/L ABG O2 Saturation (94-97) % BUN (9-20) mg/dL CK-MB (CK-2) 2.6 H* (0.0-2.4) ng/mL Troponin I 0.073 H* (0.000-0.034) ng/mL Total Protein (6.3-8.2) g/dL Crossmatch See Detail Diabetes panel 01/07/18 Range/Units 18:50 Sodium 141 (137-145) mmol/L Potassium 5.1 (3.5-5.1) mmol/L Chloride 105 (98-107) mmol/L Carbon Dioxide 27 (22-30) mmol/L BUN 32 H (9-20) mg/dL Creatinine 1.00 (0.66-1.25) mg/dL Glucose 88 (74-99) mg/dL Calcium 9.0 (8.4-10.2) mg/dL AST 30 (17-59) U/L ALT 32 (21-72) U/L Alkaline Phosphatase 87 (38-126) U/L Total Protein 6.2 L (6.3-8.2) g/dL Albumin 3.8 (3.5-5.0) g/dL Calcium panel 01/07/18 Range/Units 18:50 Calcium 9.0 (8.4-10.2) mg/dL Albumin 3.8 (3.5-5.0) g/dL Pituitary panel 01/07/18 Range/Units 18:50 Sodium 141 (137-145) mmol/L Potassium 5.1 (3.5-5.1) mmol/L Chloride 105 (98-107) mmol/L Carbon Dioxide 27 (22-30) mmol/L BUN 32 H (9-20) mg/dL Creatinine 1.00 (0.66-1.25) mg/dL Glucose 88 (74-99) mg/dL Calcium 9.0 (8.4-10.2) mg/dL Adrenal panel 01/07/18 Range/Units 18:50 Sodium 141 (137-145) mmol/L Potassium 5.1 (3.5-5.1) mmol/L Chloride 105 (98-107) mmol/L Carbon Dioxide 27 (22-30) mmol/L BUN 32 H (9-20) mg/dL Creatinine 1.00 (0.66-1.25) mg/dL Glucose 88 (74-99) mg/dL Calcium 9.0 (8.4-10.2) mg/dL Total Bilirubin 0.3 (0.2-1.3) mg/dL AST 30 (17-59) U/L ALT 32 (21-72) U/L Alkaline Phosphatase 87 (38-126) U/L Total Protein 6.2 L (6.3-8.2) g/dL Albumin 3.8 (3.5-5.0) g/dL Assessment and Plan Assessment: Impression Present on admission dizziness lightheadedness shortness of breath decreased endurance suspect due to symptomatic anemia possible due to a gastrointestinal bleed contributed to long-term use of elquis stool positive for occult blood History of a perforated sigmoid diverticulitis with bowel resection and ostomy reversed and 2016 Anxiety Chronic pain with [place] dependency Atrial fib flutter previous cardiac ablation maintained long-term anticoagulation with elquis Elevated d-dimer on admission with a CAT scan of the chest negative for pulmonary emboli History of a permanent pacemaker in 2014 Plan We'll schedule patient for an EGD and colonoscopy tomorrow morning per Dr. Chen Start bowel prep today Nothing by mouth after midnight Agree with transfusing 1 unit of packed red blood cells Continue with protonix 75 mg daily Further surgical recommendations pending clinical findings will follow with you Surgical consultation note dictated for dr chen The above impression and plan of care have been discussed and directed by signing physician. Tory Armas nurse practitioner acting as scribe for signing physician. <Courtney Chen - Last Filed: 01/08/18 18:56> Surgical - Exam Vital Signs Temp Pulse Resp BP Pulse Ox 98.0 F 111 H 20 152/91 100 01/07/18 18:09 01/07/18 18:09 01/07/18 18:09 01/07/18 18:09 01/07/18 18:09 Results - Labs 01/08/18 03:03 01/07/18 18:50 Abnormal Lab Results - Last 24 Hours (Table) 01/07/18 01/07/18 01/07/18 Range/Units 18:22 18:50 18:50 WBC 14.6 H (3.8-10.6) k/uL RBC 3.73 L (4.30-5.90) m/uL Hgb 8.5 L (13.0-17.5) gm/dL Hct 28.4 L (39.0-53.0) % MCV 76.2 L D (80.0-100.0) fL MCH 22.8 L (25.0-35.0) pg MCHC 30.0 L (31.0-37.0) g/dL RDW 16.7 H (11.5-15.5) % Neutrophils # 12.5 H (1.3-7.7) k/uL D-Dimer (<0.60) mg/L FEU ABG Total CO2 26 H (19-24) mmol/L ABG O2 Saturation 98.1 H (94-97) % BUN (9-20) mg/dL CK-MB (CK-2) 3.0 H* (0.0-2.4) ng/mL Troponin I 0.087 H* (0.000-0.034) ng/mL Total Protein (6.3-8.2) g/dL Crossmatch 01/07/18 01/07/18 01/08/18 Range/Units 18:50 18:50 03:03 WBC (3.8-10.6) k/uL RBC (4.30-5.90) m/uL Hgb (13.0-17.5) gm/dL Hct (39.0-53.0) % MCV (80.0-100.0) fL MCH (25.0-35.0) pg MCHC (31.0-37.0) g/dL RDW (11.5-15.5) % Neutrophils # (1.3-7.7) k/uL D-Dimer 1.10 H (<0.60) mg/L FEU ABG Total CO2 (19-24) mmol/L ABG O2 Saturation (94-97) % BUN 32 H (9-20) mg/dL CK-MB (CK-2) (0.0-2.4) ng/mL Troponin I 0.082 H* (0.000-0.034) ng/mL Total Protein 6.2 L (6.3-8.2) g/dL Crossmatch 01/08/18 01/08/18 01/08/18 Range/Units 03:03 06:46 08:58 WBC (3.8-10.6) k/uL RBC 3.35 L (4.30-5.90) m/uL Hgb 7.5 L (13.0-17.5) gm/dL Hct 25.6 L (39.0-53.0) % MCV 76.6 L (80.0-100.0) fL MCH 22.3 L (25.0-35.0) pg MCHC 29.2 L (31.0-37.0) g/dL RDW 17.1 H (11.5-15.5) % Neutrophils # 8.6 H (1.3-7.7) k/uL D-Dimer (<0.60) mg/L FEU ABG Total CO2 (19-24) mmol/L ABG O2 Saturation (94-97) % BUN (9-20) mg/dL CK-MB (CK-2) 2.6 H* (0.0-2.4) ng/mL Troponin I 0.073 H* (0.000-0.034) ng/mL Total Protein (6.3-8.2) g/dL Crossmatch See Detail Diabetes panel 01/07/18 Range/Units 18:50 Sodium 141 (137-145) mmol/L Potassium 5.1 (3.5-5.1) mmol/L Chloride 105 (98-107) mmol/L Carbon Dioxide 27 (22-30) mmol/L BUN 32 H (9-20) mg/dL Creatinine 1.00 (0.66-1.25) mg/dL Glucose 88 (74-99) mg/dL Calcium 9.0 (8.4-10.2) mg/dL AST 30 (17-59) U/L ALT 32 (21-72) U/L Alkaline Phosphatase 87 (38-126) U/L Total Protein 6.2 L (6.3-8.2) g/dL Albumin 3.8 (3.5-5.0) g/dL Calcium panel 01/07/18 Range/Units 18:50 Calcium 9.0 (8.4-10.2) mg/dL Albumin 3.8 (3.5-5.0) g/dL Pituitary panel 01/07/18 Range/Units 18:50 Sodium 141 (137-145) mmol/L Potassium 5.1 (3.5-5.1) mmol/L Chloride 105 (98-107) mmol/L Carbon Dioxide 27 (22-30) mmol/L BUN 32 H (9-20) mg/dL Creatinine 1.00 (0.66-1.25) mg/dL Glucose 88 (74-99) mg/dL Calcium 9.0 (8.4-10.2) mg/dL Adrenal panel 01/07/18 Range/Units 18:50 Sodium 141 (137-145) mmol/L Potassium 5.1 (3.5-5.1) mmol/L Chloride 105 (98-107) mmol/L Carbon Dioxide 27 (22-30) mmol/L BUN 32 H (9-20) mg/dL Creatinine 1.00 (0.66-1.25) mg/dL Glucose 88 (74-99) mg/dL Calcium 9.0 (8.4-10.2) mg/dL Total Bilirubin 0.3 (0.2-1.3) mg/dL AST 30 (17-59) U/L ALT 32 (21-72) U/L Alkaline Phosphatase 87 (38-126) U/L Total Protein 6.2 L (6.3-8.2) g/dL Albumin 3.8 (3.5-5.0) g/dL
--- NOTE | 2018-01-08 19:00 | P.PN ---
Progress Note - Text Progress Note Date: 01/08/18 Patient well known to me. Hgb is low. Will proceed with scopes.
[2018-01-08] MEDS: FINASTERIDE 5 MG TAB PO SCH (20:12)
[2018-01-08] MEDS: ATORVASTATIN 20 MG TAB PO SCH (20:12)
[2018-01-08] MEDS ORDERED: FUROSEMIDE 40 MG TAB PO SCH (21:00)
[2018-01-09] MEDS ORDERED: LACTATED RINGERS 1,000 ML IV SCH (00:12)
[2018-01-09] MEDS: SODIUM CHLORIDE 0.9% 1,000 ML IV SCH ×2 (05:45→23:18)
[2018-01-09 06:45] LABS: Anisocytosis Slight; Basophils % (A) 0 %; Eosinophils # (A) 0.2 k/uL (0-0.7); Eosinophils % (A) 2 %; HCT 29.8 % (39.0-53.0); HGB 8.7 gm/dL (13.0-17.5); Hypochromasia Marked; Lymphocytes % (A) 12 %; MCH 22.6 pg (25.0-35.0); MCHC 29.3 g/dL (31.0-37.0); Microcytosis Slight; Monocytes # (A) 0.5 k/uL (0-1.0); Monocytes % (A) 6 %; Neutrophils # (A) 6.6 k/uL (1.3-7.7); Neutrophils % (A) 79 %; Platelet Count 342 k/uL (150-450); Poikilocytosis Slight; RBC 3.87 m/uL (4.30-5.90); RDW 17.2 % (11.5-15.5); WBC 8.4 k/uL (3.8-10.6)
[2018-01-09 07:04] LABS: ALT 36 U/L (21-72); AST 21 U/L (17-59); Albumin 3.9 g/dL (3.5-5.0); Alkaline Phosphatase 89 U/L (38-126); Anion Gap 9 mmol/L; Blood Urea Nitrogen 22 mg/dL (9-20); Calcium 8.8 mg/dL (8.4-10.2); Carbon Dioxide 33 mmol/L (22-30); Chloride 99 mmol/L (98-107); Glucose 99 mg/dL (74-99); Potassium 3.9 mmol/L (3.5-5.1); Sodium 141 mmol/L (137-145); Total Bilirubin 0.7 mg/dL (0.2-1.3); Total Protein 6.2 g/dL (6.3-8.2)
[2018-01-09] MEDS: PANTOPRAZOLE 40 MG/10 ML VIAL IVP SCH (08:14)
[2018-01-09] MEDS: SOTALOL 120 MG TAB PO SCH ×2 (08:14→23:11)
[2018-01-09] MEDS: LISINOPRIL 20 MG TAB PO SCH ×2 (08:14→17:36)
[2018-01-09] MEDS: CARVEDILOL 12.5 MG TAB PO SCH ×2 (08:14→17:36)
[2018-01-09] MEDS: FUROSEMIDE 10 MG/ML 4 ML VIAL IV SCH ×2 (08:14→20:21)
[2018-01-09] MEDS: TAMSULOSIN 0.4 MG CAP.ER.24H PO SCH ×2 (08:15→20:21)
--- NOTE | 2018-01-09 09:58 | P.HPADDEND ---
H&P Addendum H&P Addendum Date: 01/09/18 Patient presented with anemia with occult positive stools. Will proceed with upper and lower endoscopy
[2018-01-09] MEDS ORDERED: IV FLUID CONTINUATION 1,000 ML IV ONE (10:53)
[2018-01-09] MEDS ORDERED: LIDOCAINE 1% INJ 10MG/ML (20 ML MDV) ONE (10:58)
[2018-01-09] MEDS ORDERED: PROPOFOL 10 MG/ML 20 ML VIAL IV ONE (10:58)
--- NOTE | 2018-01-09 11:22 | P.PCN ---
Date of Procedure: 01/09/18 Description of Procedure: PREOPERATIVE DIAGNOSIS: Hemoccult positive stools Symptomatic anemia Morbid obesity due to excess calories POSTOPERATIVE DIAGNOSIS: Hemoccult positive stools Symptomatic anemia Morbid obesity due to excess calories Diaphragmatic hiatal hernia without obstruction. OPERATION: Esophagogastroduodenoscopy with biopsies along antrum. SURGEON: Courtney Chen MD ANESTHESIA: MAC. INDICATIONS: The patient is a 62-year-old female who presents with a history of anemia. Benefits and risks of the procedure were described. Informed consent was obtained. DESCRIPTION: The patient was brought into the endoscopy suite and laid in the left lateral decubitus position. An Olympus gastroscope was passed along the posterior oropharynx down to the distal esophagus where the squamocolumnar junction was encountered at 40 cm from the incisors. The stomach was entered no bile reflux was found. Additional findings are listed below. The first through third portion of the duodenum was examined and unremarkable. Retroflexion of the scope confirmed Hill grade 3 lower esophageal valve. The squamocolumnar junction demostrated LA grade A erosive esophagitis. The stomach was desufflated. The patient tolerated the procedure well. FINDINGS: Squamocolumnar junction 40 cm from the incisors. Diaphragmatic hiatus at 43 cm. Hiatal hernia 3 cm. Hill grade 3 lower esophageal valve. LA grade A erosive esophagitis. No active duodenitis. No gastric ulcers. No duodenal ulcers. No gastritis. RECOMMENDATIONS: Upper endoscopy as needed.
--- NOTE | 2018-01-09 11:27 | P.PCN ---
Date of Procedure: 01/09/18 Description of Procedure: PREOPERATIVE DIAGNOSIS: Hemoccult-positive stool. Symptomatic anemia. Personal history of diverticulosis. Personal history of sigmoid resection Morbid obesity due to excess calories Chronic obstructive pulmonary disease POSTOPERATIVE DIAGNOSIS: Hemoccult-positive stool. Symptomatic anemia. Personal history of diverticulosis. Personal history of sigmoid resection Morbid obesity due to excess calories Chronic obstructive pulmonary disease Internal hemorrhoids with recent inflammation, grade OPERATION: Colonoscopy to the ileocecal valve and appendiceal orifice. SURGEON: Courtney Chen MD. ANESTHESIA: MAC. INDICATIONS: The patient is a 62-year-old male who presents with symptomatic anemia. Benefits and risks were described and informed consent was obtained. DESCRIPTION OF PROCEDURE: The patient had undergone GoLYTELY prep. He had been brought into the operating room and laid in the left lateral decubitus position. After adequate intravenous sedation, the rectum was examined with 2% lidocaine jelly. No external hemorrhoids were encountered. The rectal tone was within normal limits. No lesions were palpated in the rectal vault. An Olympus colonoscope was advanced until the ileocecal valve and appendiceal orifice were clearly viewed. The prep was good with visualization of the mucosal folds. The scope was removed with visualization of the mucosal fold. Scattered diverticulosis was encountered without bleeding or inflammation. No colonic polyps were found. No evidence of focal colitis was found. His colo-colo anastomosis was intact without inflammation. Retroflexion of the scope demonstrated grade 2 internal hemorrhoids with inflammation. The colon was desufflated. The patient had tolerated the procedure well. Withdrawal time was over 6 minutes. FINDINGS: Internal hemorrhoids, grade 2, with recent inflammation No external prolapsed hemorrhoids. No arteriovenous malformations. No adenomatous polyps. No focal colitis. Scattered diverticulosis without diverticulitis. No evidence of blood within the colon RECOMMENDATIONS: Lower endoscopy in 5 years, 2022.
--- NOTE | 2018-01-09 11:35 | P.PN ---
Subjective Progress Note Date: 01/09/18 Principal diagnosis: Shortness of breath This is a 62-year-old gentleman with history of atrial flutter with prior ablation, status post pacemaker implantation, asthma, hypertension, hyperlipidemia, obstructive sleep apnea, prior colon resection, remote history of smoking, patient presented to the hospital on this occasion with symptoms of shortness of breath. Hemoglobin on admission 8.5, stool for occult blood was positive. Troponins 0.087, 0.082, 0.073. BNP level 3060. EKG on admission showed a paced rhythm. Echocardiogram with Doppler study performed on this most recent admission showed moderate to severe LV dysfunction with an ejection fraction of 35%. Patient is currently dyspneic being treated for congestive heart failure, systolic acute on chronic. Eliquis is currently on hold. Patient is scheduled today to undergo an EGD and colonoscopy. Patient diuresed well on IV Lasix, his weight is down 4 kg today. Hemoglobin 8.7 today. He does state that his breathing is improved from admission. Objective - Vital Signs Vital signs: Vital Signs Temp 97.4 F L 01/09/18 08:00 Pulse 71 01/09/18 08:00 Resp 18 01/09/18 08:00 BP 139/77 01/09/18 08:00 Pulse Ox 93 L 01/09/18 08:00 Intake & Output 01/08/18 01/09/18 01/09/18 18:59 06:59 18:59 Intake Total 1120 310 140 Output Total 1200 Balance -80 310 140 Weight 136.2 kg 132.4 kg Intake: IV 100 Intake, IV Titration 40 Amount Sodium Chloride 0.9% 1, 40 000 ml @ 20 mls/hr IV . Q24H [facility] Rx#:[id number] Oral 1120 Blood Product 0 310 Rc As-1 Unit 0 310 [id number] Output: Urine 1200 Other: Voiding Method Urinal Urinal Urinal # Voids 3 - Exam PHYSICAL EXAMINATION: HEENT: Head is atraumatic, normocephalic. Pupils equal, round. Neck is supple. There is no elevated jugular venous pressure. HEART EXAMINATION: Heart S1, S2 normal. No murmur or gallop heard. CHEST EXAMINATION: Lungs are clear to auscultation and precussion. No chest wall tenderness is noted on palpation or with deep breathing. ABDOMEN: Soft, nontender. Bowel sounds are heard. No organomegaly noted. EXTREMITIES: 2+ peripheral pulses with no evidence of peripheral edema and no calf tenderness noted. NEUROLOGIC patient is awake, alert and oriented -3. . - Labs CBC & Chem 7: 01/09/18 06:28 01/09/18 06:28 Labs: Abnormal Lab Results - Last 24 Hours (Table) 01/08/18 01/09/18 01/09/18 Range/Units 08:58 06:28 06:28 RBC 3.87 L (4.30-5.90) m/uL Hgb 8.7 L (13.0-17.5) gm/dL Hct 29.8 L (39.0-53.0) % MCV 77.0 L (80.0-100.0) fL MCH 22.6 L (25.0-35.0) pg MCHC 29.3 L (31.0-37.0) g/dL RDW 17.2 H (11.5-15.5) % Carbon Dioxide 33 H (22-30) mmol/L BUN 22 H (9-20) mg/dL Total Protein 6.2 L (6.3-8.2) g/dL Crossmatch See Detail Assessment and Plan Plan: Assessment and plan #1 systolic congestive heart failure acute on chronic #2 anemia, workup in progress, patient scheduled for EGD and colonoscopy today. #3 paroxysmal atrial fibrillation, status post prior ablation, on Eliquis for anticoagulation. Eliquis is currently on hold. #4 sinus syndrome status post pacemaker Plan We will continue to hold the patient's Eliquis, he is scheduled to undergo EGD and colonoscopy today, we will continue to follow along with you. DNP note has been reviewed, I agree with a documented findings and plan of care. Patient was seen and examined.
[2018-01-09] MEDS: ALLOPURINOL 100 MG TAB PO SCH (12:32)
--- NOTE | 2018-01-09 13:36 | P.PN ---
Subjective Progress Note Date: 01/09/18 62-year-old male who presented to the emergency room with a chief complaint of shortness of breath. The patient states he was at work yesterday and noticed he was short of breath. 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 He stated that he took a break and started to feel better so he continued with his work day. His shortness of breath increased. He states he took two nebulizer treatments and attempted to go back to work. He states his shortness of breath did not resolve and had to prop himself up on one of the school buses in the parking lot to catch his breath. At that time, EMS was called and patient was [facility] for further evaluation. He denies chest pain or pressure. Denies coughing or sputum production. Denies nausea or vomiting. He denies change in bowel patterns. Denies dark tarry stools. Denies hematochezia. Denies hematemesis. The patient takes [place] and Mobic for chronic pain. He states he was taking NSAIDS daily every morning for awhile but stopped approximately 2 months ago after a friend developed GI bleeding and encourage the patient to stop taking NSAIDs. The patient has a history of congestive heart failure with ejection fraction of 30-35%, gastroesophageal reflux disease, hyperlipidemia, hypertension, osteoarthritis, sleep apnea, a flutter/atrial fibrillation, cardiac ablation, pacemaker insertion in 2014, bowel resection with colostomy which has since been reversed, chronic back pain, degenerative disc disease, anxiety, and obesity. Patient states he drinks 2-3 glasses of wine or beer weak. He is a former smoker and quit smoking approximately 9 years ago. 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 Patient states he does use his CPAP nightly. The patient was recently hospitalized from 11/13/2017 until 11/16/2017 with exacerbation of COPD, exacerbation of congestive heart failure, and pneumonia. Chest x-ray: Moderate-marked interstitial phase pulmonary edema CTA of the chest: Negative for pulmonary embolus. Mild interstitial phase pulmonary edema, likely cardiogenic etiology. EKG: Ventricular paced Laboratory data: WBC 14.6. Hemoglobin 8.5. Platelet count 389. Sodium 141. Potassium 5.1. BUN 32. Creatinine 1.0. GFR 79. Troponins: 0.087, 0.082, 0.073 BNP: 3060 D-Dimer: 1.10 Stool for occult blood: Positive The patient was admitted to the hospital under the care of Dr. Weiss. Consultations were placed to cardiology, pulmonology, and general surgery. 01/09/2018 Patient seen and examined at the bedside. Patient underwent EGD and colonoscopy with Dr. Chen today. EGD revealed 3 cm hiatal hernia, grade a erosive esophagitis and no evidence of gastric or duodenal ulcers or gastritis. Colonoscopy revealed internal hemorrhoids with recent inflammation and scattered diverticulosis without diverticulitis. No evidence of blood was visualized in the colon. The patient received 1 unit of packed RBCs yesterday. His hemoglobin increased from 7.5 to 8.7. His aspirin and Eliquis remain on hold. He is receiving Lasix 40 mg IV every 12 hours per cardiology. Objective - Vital Signs Vital signs: Vital Signs Temp 97 F L 01/09/18 11:50 Pulse 69 01/09/18 11:50 Resp 18 01/09/18 11:50 BP 122/64 01/09/18 11:50 Pulse Ox 94 L 01/09/18 11:50 Intake & Output 01/08/18 01/09/18 01/09/18 18:59 06:59 18:59 Intake Total 1120 310 140 Output Total 1200 Balance -80 310 140 Weight 136.2 kg 132.4 kg Intake: IV 100 Intake, IV Titration 40 Amount Sodium Chloride 0.9% 1, 40 000 ml @ 20 mls/hr IV . Q24H [facility] Rx#:[id number] Oral 1120 Blood Product 0 310 Rc As-1 Unit 0 310 [id number] Output: Urine 1200 Other: Voiding Method Urinal Urinal Urinal # Voids 3 - Exam GENERAL: This is a 62-year-old male in no apparent distress at the time of examination. Pleasant and cooperative. HEENT: Head is atraumatic, normocephalic. Pupils are equal, round, and reactive to light. Sclerae anicteric. Conjunctivae are clear. Mucus membranes of the mouth are moist. Neck is supple. RESPIRATORY: Clear to ausculation. No wheezes, rales, or rhonchi. No use of accessory muscles. Patient maintaining oxygen saturation greater than 92% on room air. No chest wall tenderness is noted on palpation or with deep breathing. CARDIOVASCULAR: Regular rate and rhythm. S1 and S2 noted. No JVD noted. No S3 or S4 noted. GASTROINTESTINAL: Obese. No distention noted. Abdomen soft and round. Normal active bowel sounds auscultated x 4 quadrants. No pain or tenderness noted upon palpation. INTEGUMENTARY: No cyanosis. No jaundice. No rashes noted. No cellulitis noted. EXTREMITIES: 2+ peripheral pulses. No evidence of peripheral edema. No calf tenderness noted. NEUROLOGIC: Cranial nerves II-XII intact. PSYCHIATRIC: Awake, alert, and oriented X 3. Appropriate affect. Intact judgement and insight. - Labs CBC & Chem 7: 01/09/18 06:28 01/09/18 06:28 Labs: Abnormal Lab Results - Last 24 Hours (Table) 01/08/18 01/09/18 01/09/18 Range/Units 08:58 06:28 06:28 RBC 3.87 L (4.30-5.90) m/uL Hgb 8.7 L (13.0-17.5) gm/dL Hct 29.8 L (39.0-53.0) % MCV 77.0 L (80.0-100.0) fL MCH 22.6 L (25.0-35.0) pg MCHC 29.3 L (31.0-37.0) g/dL RDW 17.2 H (11.5-15.5) % Carbon Dioxide 33 H (22-30) mmol/L BUN 22 H (9-20) mg/dL Total Protein 6.2 L (6.3-8.2) g/dL Crossmatch See Detail Assessment and Plan Plan: ASSESSMENT: 1. Symptomatic anemia, type unknown, hemoglobin 8.5 on admission, hemoglobin in 10/2017 running in the 9s, previous hemoglobin ranging from 11-14, suspected gastrointestinal bleeding, may to secondary to combination of Eliquis and NSAID use, stool for occult blood positive, s/p EGD revealing 3 cm hiatal hernia, erosive esophagitis and no evidence of gastric or duodenal ulcers or gastritis and colonoscopy revealing internal hemorrhoids with recent inflammation and scattered diverticulosis without diverticulitis 2. Acute exacerbation of systolic congestive heart failure, EF 35% 3. Chronic obstructive pulmonary disease, no evidence of acute exacerbation 4. History of atrial flutter/fibrillation with previous cardiac ablation, maintained on long-term anticoagulation with Eliquis 5. Elevated d-dimer, CTA negative for pulmonary embolus 6. History of permanent pacemaker insertion in 2014 7. Essential hypertension 8. Hyperlipidemia 9. Obstructive sleep apnea 10. History of perforated sigmoid diverticulitis with bowel resection and colostomy, reversed in 2016 11. Degenerative disc disease 12. Chronic back and neck pain, secondary to above 13. Osteoarthritis 14. Gastro-sexual reflux disease 15. Anxiety, unspecified 16. History of nicotine dependence, in remission, patient quit smoking cigarettes 9 years ago 17. Morbid obesity: BMI 40.7 PLAN: General surgery on consult. Appreciate recommendations and input Continue to hold Eliquis and ASA, but start heparin subcu per Dr. Weiss Advance diet Repeat hemoglobin now and in AM Cardiology on consult. Appreciate recommendations and input Continue Lasix 40 mg IV every 12 hours. Wean per cardiology Repeat chest x-ray in a.m. Pulmonary on consult. Appreciate recommendations and input Home meds as appropriate Monitor labs GI prophylaxis: Protonix 40 mg IV Daily DVT prophylaxis: Venodyne's to bilateral lower extremities Monitor vital signs and address as appropriate Discharge planning: Patient to return home when stable Further recommendations pending patient's course Nurse practitioner note has been reviewed by physician. Signing provider agrees with the documented findings, assessment, and plan of care.
[2018-01-09 14:11] LABS: Anisocytosis Slight; HCT 31.1 % (39.0-53.0); HGB 9.4 gm/dL (13.0-17.5); Hypochromasia Marked; MCH 23.4 pg (25.0-35.0); MCHC 30.2 g/dL (31.0-37.0); MCV 77.5 fL (80.0-100.0); Mean Platelet Volume 6.8; Microcytosis Slight; Platelet Count 349 k/uL (150-450); Poikilocytosis Slight; RBC 4.02 m/uL (4.30-5.90); RDW 16.5 % (11.5-15.5); WBC 8.6 k/uL (3.8-10.6)
[2018-01-09] MEDS: HEPARIN SODIUM,PORCINE 5,000 UNIT/ML 1 ML VIAL SQ SCH ×2 (15:07→23:17)
[2018-01-09] MEDS: ALBUTEROL NEBULIZED 2.5 MG/3 ML INHALATION PRN ×2 (15:37→20:04)
[2018-01-09] MEDS ORDERED: METOPROLOL TARTRATE 25 MG TAB PO STA (18:58)
[2018-01-09] MEDS: ATORVASTATIN 20 MG TAB PO SCH (20:19)
[2018-01-09] MEDS: FINASTERIDE 5 MG TAB PO SCH (20:20)
[2018-01-09] MEDS: DOCUSATE 100 MG CAP PO SCH (20:20)
[2018-01-09] MEDS: HYDROcodone/APAP 10-325MG 1 EACH TAB PO PRN (23:11)
[2018-01-10 00:11] VITALS: RESP 18
[2018-01-10] MEDS: HYDROcodone/APAP 10-325MG 1 EACH TAB PO PRN (05:46)
[2018-01-10] MEDS: CARVEDILOL 12.5 MG TAB PO SCH (05:49)
[2018-01-10] MEDS: LISINOPRIL 20 MG TAB PO SCH (05:50)
[2018-01-10 06:30] LABS: Anisocytosis Slight; Basophils % (A) 0 %; Eosinophils # (A) 0.1 k/uL (0-0.7); Eosinophils % (A) 1 %; HCT 33.7 % (39.0-53.0); HGB 10.1 gm/dL (13.0-17.5); Hypochromasia Marked; Lymphocytes # (A) 1.3 k/uL (1.0-4.8); Lymphocytes % (A) 12 %; MCH 23.3 pg (25.0-35.0); MCHC 29.9 g/dL (31.0-37.0); MCV 77.8 fL (80.0-100.0); Mean Platelet Volume 6.8; Microcytosis Slight; Monocytes # (A) 0.7 k/uL (0-1.0); Monocytes % (A) 6 %; Neutrophils # (A) 9.1 k/uL (1.3-7.7); Neutrophils % (A) 80 %; Platelet Count 403 k/uL (150-450); Poikilocytosis Slight; RBC 4.32 m/uL (4.30-5.90); RDW 16.5 % (11.5-15.5); WBC 11.4 k/uL (3.8-10.6)
[2018-01-10 06:42] LABS: Calcium 8.9 mg/dL (8.4-10.2); Potassium 4.4 mmol/L (3.5-5.1); Total Bilirubin 0.5 mg/dL (0.2-1.3); Total Protein 6.5 g/dL (6.3-8.2)
[2018-01-10] MEDS: ALBUTEROL NEBULIZED 2.5 MG/3 ML INHALATION PRN (08:36)
--- NOTE | 2018-01-10 08:47 | P.PN ---
Progress Note - Text Progress Note Date: 01/10/18 Please see full report. Patient on Eliquis which often causes microscopic bleeding and anemia. Recommend iron. Regular diet. May follow up as outpatient. Clear for discharge from surgery.
--- NOTE | 2018-01-10 10:13 | P.PN ---
<Tory Armas - Last Filed: 01/10/18 10:06> Subjective Progress Note Date: 01/10/18 Xiao 62-year-old male seen and examined at the bedside patient has been up ambulating in the vences is currently denying dizziness lightheadedness shortness of breath or chest pain. Patient states "I feel much better" patient is status post January 09 colonoscopy for symptomatic anemia workup with a positive stool for Hemoccult blood the colonoscopy internal hemorrhoid noted. Additionally underwent on January 09 as well an EGD with biopsies. The findings no gastric ulcer duodenal ulcer no gastritis LA grade A erosive esophagitis hemoglobin this morning 10.1. Objective - Vital Signs Vital signs: Vital Signs Temp 97.6 F 01/10/18 03:51 Pulse 66 01/10/18 08:46 Resp 18 01/10/18 03:51 BP 135/83 01/10/18 05:52 Pulse Ox 93 L 01/10/18 03:51 Intake & Output 01/09/18 01/10/18 01/10/18 18:59 06:59 18:59 Intake Total 670 10 360 Balance 670 10 360 Weight 132.1 kg Intake: IV 100 10 0.9 10 Intake, IV Titration 40 Amount Sodium Chloride 0.9% 1, 40 000 ml @ 20 mls/hr IV . Q24H [facility] Rx#:[id number] Oral 530 360 Other: Voiding Method Urinal # Voids 2 1 # Bowel Movements 0 - Exam Physical exam Xiao 62-year-old gentleman alert oriented 3 talkative has been up ambulating in the vences Lungs adequate air movement bilaterally on room air Heart S1-S2 audible regular Abdomen soft no facial grimacing with palpitation to the abdominal wall nontender no nausea no vomiting no stool nondistended bowel tones present Extremities no edema noted - Labs CBC & Chem 7: 01/10/18 05:54 01/10/18 05:54 Labs: Abnormal Lab Results - Last 24 Hours (Table) 01/09/18 01/09/18 01/10/18 Range/Units 13:52 17:51 05:54 WBC 11.4 H (3.8-10.6) k/uL RBC 4.02 L (4.30-5.90) m/uL Hgb 9.4 L 10.1 L (13.0-17.5) gm/dL Hct 31.1 L 33.7 L (39.0-53.0) % MCV 77.5 L 77.8 L (80.0-100.0) fL MCH 23.4 L 23.3 L (25.0-35.0) pg MCHC 30.2 L 29.9 L (31.0-37.0) g/dL RDW 16.5 H 16.5 H (11.5-15.5) % Neutrophils # 9.1 H (1.3-7.7) k/uL BUN (9-20) mg/dL Glucose (74-99) mg/dL Magnesium 2.4 H (1.6-2.3) mg/dL 01/10/18 Range/Units 05:54 WBC (3.8-10.6) k/uL RBC (4.30-5.90) m/uL Hgb (13.0-17.5) gm/dL Hct (39.0-53.0) % MCV (80.0-100.0) fL MCH (25.0-35.0) pg MCHC (31.0-37.0) g/dL RDW (11.5-15.5) % Neutrophils # (1.3-7.7) k/uL BUN 33 H (9-20) mg/dL Glucose 109 H (74-99) mg/dL Magnesium (1.6-2.3) mg/dL Assessment and Plan Assessment: Impression Present on admission dizziness lightheadedness shortness of breath decreased endurance suspect due to symptomatic anemia possible due to a gastrointestinal bleed contributed to long-term use of elquis stool positive for occult blood History of a perforated sigmoid diverticulitis with bowel resection and ostomy reversed and 2016 Anxiety Chronic pain with [place] dependency Atrial fib flutter previous cardiac ablation maintained long-term anticoagulation with elquis Elevated d-dimer on admission with a CAT scan of the chest negative for pulmonary emboli History of a permanent pacemaker in 2014 Status post January 09 EGD with biopsies with no evidence of active duodenitis, gastritis, duodenal or ulcer Status post January 09 colonoscopy normal findings with internal hemorrhoids Plan Cleared for discharge from surgery defer to the timing of the discharge to the attending Recommend continuing iron Follow-up outpatient for biopsy report note dictated for dr chen The above impression and plan of care have been discussed and directed by signing physician. Tory Armas nurse practitioner acting as scribe for signing physician. <Courtney Chen N - Last Filed: 01/11/18 06:39> Objective - Vital Signs Vital signs: Vital Signs Temp 96.8 F L 01/10/18 12:20 Pulse 106 H 01/10/18 12:20 Resp 18 01/10/18 12:20 BP 119/81 01/10/18 12:20 Pulse Ox 96 01/10/18 12:20 Intake & Output 01/10/18 01/10/18 01/11/18 06:59 18:59 06:59 Intake Total 10 720 Balance 10 720 Weight 132.1 kg Intake: IV 10 0.9 10 Oral 720 Other: # Voids 1 - Labs CBC & Chem 7: 01/10/18 05:54 01/10/18 05:54 Labs: Abnormal Lab Results - Last 24 Hours (Table) 01/10/18 Range/Units 05:54 BUN 33 H (9-20) mg/dL Glucose 109 H (74-99) mg/dL
[2018-01-10] MEDS: HEPARIN SODIUM,PORCINE 5,000 UNIT/ML 1 ML VIAL SQ SCH (10:20)
[2018-01-10] MEDS: FUROSEMIDE 10 MG/ML 4 ML VIAL IV SCH (10:20)
[2018-01-10] MEDS: PANTOPRAZOLE 40 MG/10 ML VIAL IVP SCH (10:20)
[2018-01-10] MEDS: SOTALOL 120 MG TAB PO SCH (10:21)
[2018-01-10] MEDS: TAMSULOSIN 0.4 MG CAP.ER.24H PO SCH (10:21)
[2018-01-10] MEDS ORDERED: APIXABAN 5 MG TAB PO SCH (10:30)
--- NOTE | 2018-01-10 11:48 | P.PN ---
Subjective Progress Note Date: 01/10/18 Principal diagnosis: GI bleed Progress note dated 01/10/2018 This is a 62-year-old male who was admitted with a diagnosis of gastrointestinal bleeding. The patient also had an exacerbation of systolic heart failure and history of atrial fibrillation for which she was on a blood thinner. He does have a previous history of perforated bowel with resection and colostomy and subsequent reversal. In addition, he has a history of obesity sleep apnea syndrome asthma hyperlipidemia hypertension and gout. I was seeing her primarily because of the shortness of breath. I do think he needs an outpatient pulmonary evaluation including a 6 minute walk distance and PFTs. His states he becomes very short of breath with any activity. Other than that is doing relatively well. He may be discharged home today. Not sure. We'll continue to follow closely. Objective - Vital Signs Vital signs: Vital Signs Temp 97.6 F 01/10/18 03:51 Pulse 66 01/10/18 08:46 Resp 18 01/10/18 03:51 BP 135/83 01/10/18 05:52 Pulse Ox 93 L 01/10/18 03:51 Intake & Output 01/09/18 01/10/18 01/10/18 18:59 06:59 18:59 Intake Total 670 10 360 Balance 670 10 360 Weight 132.1 kg Intake: IV 100 10 0.9 10 Intake, IV Titration 40 Amount Sodium Chloride 0.9% 1, 40 000 ml @ 20 mls/hr IV . Q24H [facility] Rx#:[id number] Oral 530 360 Other: Voiding Method Urinal # Voids 2 1 # Bowel Movements 0 - Exam No acute distress, oriented 3. HEENT examination is grossly unremarkable. Mucous membranes are moist. No oral lesions. Neck supple. Full range of motion. No adenopathy thyromegaly or neck vein distention. Cardiovascular examination reveals regular rhythm rate. S1-S2 normal. No S3 or S4. No discernible murmur noted. Lungs reveal clear breath sounds. Her sounds are equal bilaterally. No adventitious lung sounds including wheezes rhonchi or crackles. Abdomen soft bowel sounds are heard. No masses or tenderness. Extremities are intact. No cyanosis clubbing or edema. Skin is without rash or lesion. Neurologic examination is brief but nonfocal. - Labs CBC & Chem 7: 01/10/18 05:54 01/10/18 05:54 Labs: Abnormal Lab Results - Last 24 Hours (Table) 01/09/18 01/09/18 01/10/18 Range/Units 13:52 17:51 05:54 WBC 11.4 H (3.8-10.6) k/uL RBC 4.02 L (4.30-5.90) m/uL Hgb 9.4 L 10.1 L (13.0-17.5) gm/dL Hct 31.1 L 33.7 L (39.0-53.0) % MCV 77.5 L 77.8 L (80.0-100.0) fL MCH 23.4 L 23.3 L (25.0-35.0) pg MCHC 30.2 L 29.9 L (31.0-37.0) g/dL RDW 16.5 H 16.5 H (11.5-15.5) % Neutrophils # 9.1 H (1.3-7.7) k/uL BUN (9-20) mg/dL Glucose (74-99) mg/dL Magnesium 2.4 H (1.6-2.3) mg/dL 01/10/18 Range/Units 05:54 WBC (3.8-10.6) k/uL RBC (4.30-5.90) m/uL Hgb (13.0-17.5) gm/dL Hct (39.0-53.0) % MCV (80.0-100.0) fL MCH (25.0-35.0) pg MCHC (31.0-37.0) g/dL RDW (11.5-15.5) % Neutrophils # (1.3-7.7) k/uL BUN 33 H (9-20) mg/dL Glucose 109 H (74-99) mg/dL Magnesium (1.6-2.3) mg/dL Assessment and Plan Assessment: Assessment Acute exacerbation of systolic heart failure History of atrial fibrillation, currently on a factor X a inhibitor, status post pacemaker insertion. Gastrointestinal bleed History of perforated bowel with resection and colostomy and subsequent colostomy reversal Obesity Obstructive sleep apnea syndrome, currently on CPAP History of chronic bronchial asthma Hyperlipidemia Hypertension History of gout Plan: Plan dated 01/10/2018 The patient is doing relatively well. We'll continue to follow closely. I did give her my card. I think an outpatient pulmonary evaluation will be in order including a 6 minute walk distance and a pulmonary function test. Additional recommendations and suggestions are forthcoming. His GI bleed apparently is stable now. EGD and colonoscopy did not reveal any acute pathology. We'll continue to follow. Prognosis is guarded. Time with Patient: Less than 30
--- NOTE | 2018-01-10 12:05 | P.DS ---
Providers Date of admission: 01/07/18 21:56 Expected date of discharge: 01/10/18 Attending physician: Elijah Weiss Consults: 01/07/18 21:59 Consult Physician Urgent Consulting Provider: Courtney Chen Consult Reason/Comments: gi hemorrhage Do you want consulting provider notified?: Yes Consult Physician Urgent Consulting Provider: Semaj Ortiz Consult Reason/Comments: dyspnea Do you want consulting provider notified?: Yes 01/08/18 07:13 Consult Physician Routine Consulting Provider: Phuc Crowley Consult Reason/Comments: MIGUE Do you want consulting provider notified?: Yes [facility] care physician: [facility] Course: 62-year-old male who presented to the emergency room with a chief complaint of shortness of breath. The patient states he was at work yesterday and noticed he was short of breath. 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 He stated that he took a break and started to feel better so he continued with his work day. His shortness of breath increased. He states he took two nebulizer treatments and attempted to go back to work. He states his shortness of breath did not resolve and had to prop himself up on one of the school buses in the parking lot to catch his breath. At that time, EMS was called and patient was brought to [facility] for further evaluation. He denies chest pain or pressure. Denies coughing or sputum production. Denies nausea or vomiting. He denies change in bowel patterns. Denies dark tarry stools. Denies hematochezia. Denies hematemesis. The patient takes Petroleum and Mobic for chronic pain. He states he was taking NSAIDS daily every morning for awhile but stopped approximately 2 months ago after a friend developed GI bleeding and encourage the patient to stop taking NSAIDs. The patient has a history of congestive heart failure with ejection fraction of 30-35%, gastroesophageal reflux disease, hyperlipidemia, hypertension, osteoarthritis, sleep apnea, a flutter/atrial fibrillation, cardiac ablation, pacemaker insertion in 2014, bowel resection with colostomy which has since been reversed, chronic back pain, degenerative disc disease, anxiety, and obesity. Patient states he drinks 2-3 glasses of wine or beer weak. He is a former smoker and quit smoking approximately 9 years ago. 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 Patient states he does use his CPAP nightly. The patient was recently hospitalized from 11/13/2017 until 11/16/2017 with exacerbation of COPD, exacerbation of congestive heart failure, and pneumonia. Chest x-ray: Moderate-marked interstitial phase pulmonary edema CTA of the chest: Negative for pulmonary embolus. Mild interstitial phase pulmonary edema, likely cardiogenic etiology. EKG: Ventricular paced Laboratory data: WBC 14.6. Hemoglobin 8.5. Platelet count 389. Sodium 141. Potassium 5.1. BUN 32. Creatinine 1.0. GFR 79. Troponins: 0.087, 0.082, 0.073 BNP: 3060 D-Dimer: 1.10 Stool for occult blood: Positive The patient was admitted to the hospital under the care of Dr. Weiss. The patient was evaluated by cardiology during hospitalization. He was started on Lasix 40mg IV q 12 hours. He has since been transitioned to oral 40mg BID per cardiology. His shortness of breath has improved. The patient was evaluated by general surgery, Dr. Chen, during hospitalization. Patient underwent EGD and colonoscopy on 01/09/2018. EGD revealed 3 cm hiatal hernia, grade a erosive esophagitis and no evidence of gastric or duodenal ulcers or gastritis. Colonoscopy revealed internal hemorrhoids with recent inflammation and scattered diverticulosis without diverticulitis. No evidence of blood was visualized in the colon. The patient was evaluated by pulmonary during hospitalization. They recommend patient follows up outpatient in their office for further evaluation including 6 minute walk and PFTs. The patients hemoglobin on admisison was 8.5. It dropped to 7.5 The patient received 1 unit RBC transfusion. Most recent hemoglobin is 10.1. General surgery recommends starting the patient on iron at the time of discharge. The patient was deemed stable for discharge per Dr. Weiss. He is to follow up on an outpatient basis with Dr. Weiss, general surgery, cardiology, and pulmonary. The patient is to hold his aspirin and Mobic until he is evaluated in the office next week by Dr. Weiss. He may resume his Coumadin. Patient may take his Petroleum for pain and also Tylenol when needed. He is not to exceed 4000 mg of Tylenol per 24-hour period. General surgery recommends starting iron supplementation. A prescription was sent to the patient's preferred pharmacy for ferrous sulfate 325 twice a day. Cardiology also recommends Lasix 40 mg by mouth twice a day. A prescription was sent to the patient's preferred pharmacy. DISCHARGE DIAGNOSIS: 1. Symptomatic anemia, type unknown, hemoglobin 8.5 on admission, hemoglobin in 10/2017 running in the 9s, previous hemoglobin ranging from 11-14, suspected gastrointestinal bleeding, may to secondary to combination of Eliquis and NSAID use, stool for occult blood positive, s/p EGD revealing 3 cm hiatal hernia, erosive esophagitis and no evidence of gastric or duodenal ulcers or gastritis and colonoscopy revealing internal hemorrhoids with recent inflammation and scattered diverticulosis without diverticulitis, hemoglobin stable at time of discharge 2. Acute exacerbation of systolic congestive heart failure, EF 35%, improved at time of discharge 3. Chronic obstructive pulmonary disease, no evidence of acute exacerbation 4. History of atrial flutter/fibrillation with previous cardiac ablation, maintained on long-term anticoagulation with Eliquis 5. Elevated d-dimer, CTA negative for pulmonary embolus 6. History of permanent pacemaker insertion in 2014 7. Essential hypertension 8. Hyperlipidemia 9. Obstructive sleep apnea 10. History of perforated sigmoid diverticulitis with bowel resection and colostomy, reversed in 2015 11. Degenerative disc disease 12. Chronic back and neck pain, secondary to above 13. Osteoarthritis 14. Gastro-sexual reflux disease 15. Anxiety, unspecified 16. History of nicotine dependence, in remission, patient quit smoking cigarettes 9 years ago 17. Morbid obesity: BMI 40.7 Nurse practitioner note has been reviewed by physician. Signing provider agrees with the documented findings, assessment, and plan of care. Plan - Discharge Summary Discharge Rx Participant: No New Discharge Prescriptions: New Ferrous Sulfate [Feosol] 325 mg PO BID #60 tab Furosemide [Lasix] 40 mg PO BID #60 tab Continue Tamsulosin HCl [Flomax] 0.4 mg PO BID Omeprazole [PriLOSEC] 20 mg PO DAILY@1200 Apixaban [Eliquis] 5 mg PO BID Lisinopril [Zestril] 20 mg PO AC-BID Simvastatin 40 mg PO HS Finasteride 5 mg PO HS Carvedilol [Coreg] 25 mg PO AC-BID Sotalol HCl [Betapace] 120 mg PO BID Potassium Chloride ER [K-Dur 20] 20 meq PO DAILY Albuterol Nebulized [Ventolin Nebulized] 2.5 mg INHALATION RT-QID PRN PRN Reason: Shortness Of Breath Albuterol Sulfate [Proair Hfa] 2 puff INHALATION RT-BID PRN PRN Reason: Shortness Of Breath Vitamin A 10,000 unit PO DAILY@1200 Allopurinol [Zyloprim] 100 mg PO DAILY@1200 tab tiZANidine [Zanaflex] 2 mg PO HS HYDROcodone/APAP 10-325MG [Petroleum 10-325] 1 tab PO BID PRN PRN Reason: Pain Discontinued Aspirin EC [Ecotrin Low Dose] 81 mg PO DAILY@1200 Meloxicam 15 mg PO DAILY Furosemide [Lasix] 40 mg PO HS Discharge Medication List Omeprazole [PriLOSEC] 20 mg PO DAILY@1200 04/06/15 [History] Tamsulosin HCl [Flomax] 0.4 mg PO BID 04/06/15 [History] Apixaban [Eliquis] 5 mg PO BID 12/02/15 [History] Lisinopril [Zestril] 20 mg PO AC-BID 12/02/15 [History] Finasteride 5 mg PO HS 04/14/16 [History] Simvastatin 40 mg PO HS 04/14/16 [History] Carvedilol [Coreg] 25 mg PO AC-BID 04/18/16 [History] Sotalol HCl [Betapace] 120 mg PO BID 05/17/16 [History] Albuterol Nebulized [Ventolin Nebulized] 2.5 mg INHALATION RT-QID PRN 09/29/16 [ History] Potassium Chloride ER [K-Dur 20] 20 meq PO DAILY 09/29/16 [History] Albuterol Sulfate [Proair Hfa] 2 puff INHALATION RT-BID PRN 11/13/17 [History] Vitamin A 10,000 unit PO DAILY@1200 11/13/17 [History] Allopurinol [Zyloprim] 100 mg PO DAILY@1200 tab 11/16/17 [Rx] HYDROcodone/APAP 10-325MG [Petroleum 10-325] 1 tab PO BID PRN 01/07/18 [History] tiZANidine [Zanaflex] 2 mg PO HS 01/07/18 [History] Ferrous Sulfate [Feosol] 325 mg PO BID #60 tab 01/10/18 [Rx] Furosemide [Lasix] 40 mg PO BID #60 tab 01/10/18 [Rx] Follow up Appointment(s)/Referral(s): Courtney Chen MD [STAFF PHYSICIAN] - 01/22/18 4:00 pm (Sunday) Phuc Crowley DO [Doctor of Osteopathic Medicine] - 01/22/18 9:45 am (Sunday) Elijah Weiss MD [Primary Care Provider] - 01/14/18 2:30 pm (Sunday, previously scheduled ) Armando Jameson MD [STAFF PHYSICIAN] - 01/31/18 4:15 pm () Activity/Diet/Wound Care/Special Instructions: Continue to hold your aspirin until you see Dr. Weiss on Sunday Do not take your Mobic until evaluated by Dr. Weiss. You may use your Petroleum for pain and also Tylenol. Do not exceed 4,000mg of tylenol in a 24 hour period Discharge Disposition: HOME SELF-CARE
[2018-01-10] MEDS: DOCUSATE 100 MG CAP PO SCH (12:17)
[2018-01-10] MEDS: ALLOPURINOL 100 MG TAB PO SCH (12:17)
[2018-01-10 12:28] VITALS: TEMP 96.8
--- NOTE | 2018-01-10 12:28 | P.PN ---
Subjective Progress Note Date: 01/10/18 Principal diagnosis: Shortness of breath This is a 62-year-old gentleman with history of atrial flutter with prior ablation, status post pacemaker implantation, asthma, hypertension, hyperlipidemia, obstructive sleep apnea, prior colon resection, remote history of smoking, patient presented to the hospital on this occasion with symptoms of shortness of breath. Hemoglobin on admission 8.5, stool for occult blood was positive. Troponins 0.087, 0.082, 0.073. BNP level 3060. EKG on admission showed a paced rhythm. Echocardiogram with Doppler study performed on this most recent admission showed moderate to severe LV dysfunction with an ejection fraction of 35%. Patient is currently dyspneic being treated for congestive heart failure, systolic acute on chronic. Eliquis is currently on hold. Patient is scheduled today to undergo an EGD and colonoscopy. Patient diuresed well on IV Lasix, his weight is down 4 kg today. Hemoglobin 8.7 today. He does state that his breathing is improved from admission. 01/10/2018 Patient seen and examined this morning, underwent EGD and colonoscopy, EGD showed erosive esophagitis, colonoscopy revealed hemorrhoids and diverticulosis. Consent was given by surgery to resume the patient's Eliquis at 5 mg one tablet by mouth twice a day. Patient was noted on review of his rhythm strips to have a run of nonsustained ventricular tachycardia, potassium and magnesium levels were normal. Blood pressure 134/80 with a heart rate in the 70s, 93% on room air. White blood cell count 11.4, hemoglobin 10.1, platelet count 403. Sodium 139, potassium 4.4, BUN 33, creatinine 1.2. Objective - Vital Signs Vital signs: Vital Signs Temp 97.6 F 01/10/18 03:51 Pulse 66 01/10/18 08:46 Resp 18 01/10/18 03:51 BP 135/83 01/10/18 05:52 Pulse Ox 93 L 01/10/18 03:51 Intake & Output 01/09/18 01/10/18 01/10/18 18:59 06:59 18:59 Intake Total 670 10 360 Balance 670 10 360 Weight 132.1 kg Intake: IV 100 10 0.9 10 Intake, IV Titration 40 Amount Sodium Chloride 0.9% 1, 40 000 ml @ 20 mls/hr IV . Q24H SAWYER Rx#:[id number] Oral 530 360 Other: Voiding Method Urinal # Voids 2 1 # Bowel Movements 0 - Exam PHYSICAL EXAMINATION: HEENT: Head is atraumatic, normocephalic. Pupils equal, round. Neck is supple. There is no elevated jugular venous pressure. HEART EXAMINATION: Heart S1, S2 normal. No murmur or gallop heard. CHEST EXAMINATION: Lungs are clear to auscultation and precussion. No chest wall tenderness is noted on palpation or with deep breathing. ABDOMEN: Soft, nontender. Bowel sounds are heard. No organomegaly noted. EXTREMITIES: 2+ peripheral pulses with no evidence of peripheral edema and no calf tenderness noted. NEUROLOGIC patient is awake, alert and oriented -3. . - Labs CBC & Chem 7: 01/10/18 05:54 01/10/18 05:54 Labs: Abnormal Lab Results - Last 24 Hours (Table) 01/09/18 01/09/18 01/10/18 Range/Units 13:52 17:51 05:54 WBC 11.4 H (3.8-10.6) k/uL RBC 4.02 L (4.30-5.90) m/uL Hgb 9.4 L 10.1 L (13.0-17.5) gm/dL Hct 31.1 L 33.7 L (39.0-53.0) % MCV 77.5 L 77.8 L (80.0-100.0) fL MCH 23.4 L 23.3 L (25.0-35.0) pg MCHC 30.2 L 29.9 L (31.0-37.0) g/dL RDW 16.5 H 16.5 H (11.5-15.5) % Neutrophils # 9.1 H (1.3-7.7) k/uL BUN (9-20) mg/dL Glucose (74-99) mg/dL Magnesium 2.4 H (1.6-2.3) mg/dL 01/10/18 Range/Units 05:54 WBC (3.8-10.6) k/uL RBC (4.30-5.90) m/uL Hgb (13.0-17.5) gm/dL Hct (39.0-53.0) % MCV (80.0-100.0) fL MCH (25.0-35.0) pg MCHC (31.0-37.0) g/dL RDW (11.5-15.5) % Neutrophils # (1.3-7.7) k/uL BUN 33 H (9-20) mg/dL Glucose 109 H (74-99) mg/dL Magnesium (1.6-2.3) mg/dL Assessment and Plan Plan: Assessment and plan #1 systolic congestive heart failure acute on chronic #2 anemia, workup in progress, patient scheduled for EGD and colonoscopy today. #3 paroxysmal atrial fibrillation, status post prior ablation, on Eliquis for anticoagulation. Eliquis is currently on hold. #4 sinus syndrome status post pacemaker Plan From cardiology's perspective, we will resume the patient's Eliquis 5 mg one tablet by mouth twice a day. We will also discontinue the IV Lasix, Lasix patient on Lasix 40 mg twice a day, he was taking 40 daily at home previously. A follow-up appointment will be made in the office post discharge. DNP note has been reviewed, I agree with a documented findings and plan of care. Patient was seen and examined.
[2018-01-10 12:30] VITALS: BP 119/81; PULSE 106
[2018-01-10] MEDS ORDERED: FUROSEMIDE 40 MG TAB PO SCH (16:00)
--- NOTE | 2018-01-10 17:04 | XR ---
EXAMINATION TYPE: XR chest 2V DATE OF EXAM: 01/10/2018 COMPARISON: Prior chest 01/07/2018 HISTORY: Congestive heart failure TECHNIQUE: Frontal and lateral views of the chest are obtained. FINDINGS: Findings are similar. Patient is rotated, there is scoliosis. Intracardiac defibrillator l flip again noted. Perihilar increased attenuation is noted, there is left lower lobe increased densit y. No pneumothorax or sizable effusion. IMPRESSION: Findings are similar to prior exam. Correlate for pulmonary venous hypertension and inte rstitial edema. There may be lower lobe atelectasis, correlate for pneumonia versus edema.
[2018-01-11] MEDS ORDERED: PANTOPRAZOLE 40 MG TABLET PO SCH (09:00)
== END 2018-01-10 15:49 | disposition home or self-care (01) | DRG 377 ==
LOC: EC 18:04 → 6SEL 21:56
PROVIDERS: ADMIT Family Medicine; ATTEND Family Medicine
PROC: 30233N1 Transfusion of Nonautologous Red Blood Cells into Peripheral Vein, Percutaneous Approach (ICD-10-PCS; 2018-01-08)
PROC: 0DB68ZX Excision of Stomach, Via Natural or Artificial Opening Endoscopic, Diagnostic (ICD-10-PCS; principal; 2018-01-09 11:10)
PROC: 0DJD8ZZ Inspection of Lower Intestinal Tract, Via Natural or Artificial Opening Endoscopic (ICD-10-PCS; principal; 2018-01-09 11:10)
DX: K92.2 Gastrointestinal hemorrhage, unspecified (principal); I50.23 Acute on chronic systolic (congestive) heart failure; I47.2 Ventricular tachycardia; I48.0 Paroxysmal atrial fibrillation; E66.01 Morbid (severe) obesity due to excess calories; I48.92 Unspecified atrial flutter; K22.10 Ulcer of esophagus without bleeding; I42.9 Cardiomyopathy, unspecified; K43.0 Incisional hernia with obstruction, without gangrene; Z68.41 Body mass index [BMI] 40.0-44.9, adult; I11.0 Hypertensive heart disease with heart failure; Z79.01 Long term (current) use of anticoagulants; D64.9 Anemia, unspecified; E78.5 Hyperlipidemia, unspecified; F41.9 Anxiety disorder, unspecified; G47.33 Obstructive sleep apnea (adult) (pediatric); G89.29 Other chronic pain; J44.9 Chronic obstructive pulmonary disease, unspecified; K21.9 Gastro-esophageal reflux disease without esophagitis; K44.9 Diaphragmatic hernia without obstruction or gangrene; K57.90 Diverticulosis of intestine, part unspecified, without perforation or abscess without bleeding; K64.8 Other hemorrhoids; M19.90 Unspecified osteoarthritis, unspecified site; M41.9 Scoliosis, unspecified; R79.1 Abnormal coagulation profile; Z79.1 Long term (current) use of non-steroidal anti-inflammatories (NSAID); Z79.899 Other long term (current) drug therapy; Z80.1 Family history of malignant neoplasm of trachea, bronchus and lung; Z82.49 Family history of ischemic heart disease and other diseases of the circulatory system; Z83.3 Family history of diabetes mellitus; Z95.0 Presence of cardiac pacemaker; F17.201 Nicotine dependence, unspecified, in remission
CPT/HCPCS: 36415; 36600; 43235; 45378; 71046; 71275; 80053; 82272; 82550; 82553; 82805; 83735; 83880; 84484; 85025; 85027; 85379; 85610; 85730; 86850; 86900; 86901; 86920; 93005; 94640; 94760; 96374; 96375; 99285

== ENCOUNTER → 2018-01-31 | Outpatient (CLI) | payer BC ==
[2018-01-31 11:46] LABS: Anisocytosis Moderate; HCT 33.8 % (39.0-53.0); HGB 10.7 gm/dL (13.0-17.5); Hypochromasia Marked; MCHC 31.6 g/dL (31.0-37.0); MCV 82.1 fL (80.0-100.0); Mean Platelet Volume 7.5; Microcytosis Slight; Platelet Count 247 k/uL (150-450); RBC 4.12 m/uL (4.30-5.90); RDW 21.1 % (11.5-15.5); WBC 8.1 k/uL (3.8-10.6)
[2018-01-31 12:25] LABS: Anion Gap 11 mmol/L; Blood Urea Nitrogen 21 mg/dL (9-20); Calcium 9.4 mg/dL (8.4-10.2); Carbon Dioxide 26 mmol/L (22-30); Chloride 104 mmol/L (98-107); Glucose 87 mg/dL (74-99); Potassium 4.3 mmol/L (3.5-5.1); Sodium 141 mmol/L (137-145)
== END | disposition home or self-care (01) ==
LOC: LABWHC1 10:58
PROVIDERS: ATTEND Internal Medicine Cardiovascular Disease
DX: I34.0 Nonrheumatic mitral (valve) insufficiency (principal); I48.1 Persistent atrial fibrillation; I35.1 Nonrheumatic aortic (valve) insufficiency; I50.22 Chronic systolic (congestive) heart failure; R06.02 Shortness of breath; R53.83 Other fatigue; R60.0 Localized edema
CPT/HCPCS: 36415; 80048; 83880; 85027

== ENCOUNTER → 2018-03-04 | Outpatient (CLI) | payer BC ==
[2018-03-04 10:52] LABS: Anisocytosis Moderate; HCT 36.5 % (39.0-53.0); HGB 11.4 gm/dL (13.0-17.5); Hypochromasia Slight; MCH 26.7 pg (25.0-35.0); MCHC 31.3 g/dL (31.0-37.0); MCV 85.1 fL (80.0-100.0); Mean Platelet Volume 7.4; Microcytosis Slight; Platelet Count 232 k/uL (150-450); RBC 4.29 m/uL (4.30-5.90); RDW 21.1 % (11.5-15.5); WBC 6.6 k/uL (3.8-10.6)
[2018-03-04 11:04] LABS: ALT 37 U/L (21-72); AST 22 U/L (17-59); Albumin 3.7 g/dL (3.5-5.0); Alkaline Phosphatase 78 U/L (38-126); Anion Gap 11 mmol/L; Blood Urea Nitrogen 25 mg/dL (9-20); Carbon Dioxide 28 mmol/L (22-30); Chloride 102 mmol/L (98-107); Cholesterol 156 mg/dL (<200); Glucose 97 mg/dL (74-99); HDL Cholesterol 42 mg/dL (40-60); LDL Cholesterol,Calculated 88 mg/dL (0-99); Potassium 4.4 mmol/L (3.5-5.1); Sodium 141 mmol/L (137-145); Total Bilirubin 0.5 mg/dL (0.2-1.3); Total Protein 5.8 g/dL (6.3-8.2); Triglycerides 128 mg/dL (<150)
[2018-03-04 11:07] LABS: INR 1.1 (<1.2); Prothrombin Time 10.4 sec (9.0-12.0)
== END | disposition home or self-care (01) ==
LOC: LABWHC1 10:07
PROVIDERS: ATTEND Internal Medicine Cardiovascular Disease
DX: E78.00 Pure hypercholesterolemia, unspecified (principal); R06.02 Shortness of breath; I50.22 Chronic systolic (congestive) heart failure; R60.0 Localized edema; R53.83 Other fatigue; I48.0 Paroxysmal atrial fibrillation; I11.0 Hypertensive heart disease with heart failure; I34.0 Nonrheumatic mitral (valve) insufficiency; I48.1 Persistent atrial fibrillation; I35.1 Nonrheumatic aortic (valve) insufficiency
CPT/HCPCS: 36415; 80053; 80061; 83880; 85027; 85610; 85730

== ENCOUNTER → 2018-05-06 | Outpatient (CLI) | payer BC ==
--- NOTE | 2018-05-06 12:26 | CT ---
EXAMINATION TYPE: CT lumbar spine w con DATE OF EXAM: 05/06/2018 COMPARISON: CT abdomen pelvis dated 07/11/2016 HISTORY: Low back pain for years getting worse CT DLP: 3183.6 mGycm Automated exposure control for dose reduction was used. CONTRAST: CT scan of the lumbar is performed with IV Contrast, patient injected with 100 mL of Isovue 300. TECHNIQUE: Enhanced CT of the lumbar spine was performed. Bone and soft tissue window settings are s ubmitted as well as coronal and sagittal reconstructions. FINDINGS: There is a rotatory levoscoliotic curvature of the lumbar spine. Multilevel malalignment is also seen. There is slight retrolisthesis of L2 with respect to L3, L3 with respect to L4 and L4 wit h respect to L5. Posterior osteophytes are seen at these levels. No evidence of vertebral body height loss throughout the lumbar spine. Multilevel anterior osteophytes, vacuum disc disease, endplate scl erosis and intervertebral disc space narrowing as well as facet arthropathy are seen. Somewhat irregu lar Schmorl's node is present of the superior endplate of T12. Moderate atherosclerosis is seen of th e visualized portions of the abdominal aorta and its branches. Mild paraspinal musculature atrophy is seen of the lumbosacral junction. No enhancing paraspinal masses. Surgical resection site of the lar ge bowel is partially visualized. L1-L2: There is a broad-based disc bulge resulting in bilateral mild neural foraminal narrowing. No s mare canal stenosis. L2-L3: There is a broad-based disc bulge, ligamentum flavum buckling, and facet arthropathy resulting in severe right neural foraminal narrowing and mild left neural foraminal narrowing. Scoliosis exagg erates these findings on the right. Mild spinal canal stenosis is also seen. L3-L4: There is a broad-based disc bulge, posterior osteophytes, facet arthropathy and ligamentum fla vum buckling creating moderate to severe bilateral neural foraminal narrowing and moderate spinal can al stenosis. L4-L5: There is a posterior osteophyte, facet arthropathy, and a broad-based disc bulge creating mode rate to severe right neural foraminal narrowing, severe left neural foraminal narrowing and severe sp inal canal stenosis. L5-S1: Broad-based disc bulge and posterior osteophytes creating moderate left neural foraminal narro wing, mild right neural foraminal narrowing and no significant spinal canal stenosis. IMPRESSION: 1. Extensive degenerative changes of the spine and rotatory levoscoliosis with multilevel malalignmen t including retrolisthesis at L2-L3, L3-L4 and L4-L5. No evidence of vertebral body height loss or fr acture of the lumbar spine. 2. Extensive degenerative changes create mild spinal canal stenosis at L2-L3, moderate spinal canal s tenosis at L3-L4, and severe spinal canal stenosis at L4-L5 as well as variable degrees of neural for aminal narrowing as described above, most severe at L4-L5 on the left.
== END | disposition home or self-care (01) ==
LOC: RADCTMAIN 11:15
PROVIDERS: ATTEND Family Medicine
DX: M48.061 Spinal stenosis, lumbar region without neurogenic claudication (principal); M99.73 Connective tissue and disc stenosis of intervertebral foramina of lumbar region; M51.27 Other intervertebral disc displacement, lumbosacral region; M43.16 Spondylolisthesis, lumbar region; M47.816 Spondylosis without myelopathy or radiculopathy, lumbar region; M41.80 Other forms of scoliosis, site unspecified
CPT/HCPCS: 72132; Q9967

== ENCOUNTER 2018-06-17 07:39 | Day surgery (SDC) | payer BC ==
[~2018-06-17 07:39] MED LIST changes: -DIAZEPAM 5 MG TAB PO STA; -HYDROcodone/APAP 5-325MG 1 EACH TAB PO PRN; +PREMYELOGRAM MEDICATION REVIEW 1 EACH MISC PO NR; -PREMYELOGRAM MEDICATION REVIEW 1 EACH MISC PO ONE
[2018-06-17 08:37] LABS: Mean Platelet Volume 7.1; Platelet Count 210 k/uL (150-450)
[2018-06-17 08:45] VITALS: TEMP 97.6
[2018-06-17] MEDS ORDERED: HYDROcodone/APAP 10-325MG 1 EACH TAB PO ONE (10:42)
--- NOTE | 2018-06-17 11:57 | FL ---
PROCEDURE: Lumbar puncture. DATE: 06/17/2018 CLINICAL HISTORY: 62-year-old male with low back pain COMPLICATIONS: None. The patient and the patient's vital signs were monitored by qualified independent radiology personnel . TECHNIQUE: The procedure and potential risks were explained to patient and an informed consent was obtained with teach back. Site and side was verified. A time out was performed. The patient was placed prone on the fluoroscopy table with a slight leftward lateral and the L3-L4 an d L5-S1 levels were localized and the skin was marked and was prepped and draped in the usual sterile fashion. Lidocaine was used for local anesthesia. Utilizing fluoroscopic guidance a 5 inch 22-gauge spinal nee dle was placed through the skin and into the subarachnoid space. Initial attempt was made at the L3-L 4 level unsuccessfully. The L5-S1 level was subsequently attempted successfully. Clear CSF was visualized. Following this, a total of 12 mL Isovue-200 contrast material was instilled into the subarachnoid space. Table was tilted head down to encourage spread of contrast within the t hecal space. There were technical and visual limitations due to patient's large body habitus. The patient tolerated the procedure well and was sent back to CT in satisfactory condition. The estimated blood loss was minimal. The patient's condition was unchanged following the procedure. Fluoroscopy time: 1 minute 55 seconds. Total images: 4. IMPRESSION: Successful myelogram injection for CT of the lumbar spine.
--- NOTE | 2018-06-17 12:50 | CT ---
EXAMINATION TYPE: CT lumbar myelogram DATE OF EXAM: 06/17/2018 COMPARISON: Noncontrast CT 05/06/2018 HISTORY: 62-year-old male Low back pain TECHNIQUE: Contiguous axial scanning of the lumbar spine performed after myelogram injection. Patient injected intrathecally with 12 mL of Isovue M200. Coronal/sagittal reconstructions performed. CT DLP: 2574.7 mGycm Automated exposure control for dose reduction was used. FINDINGS: Vertebral height body heights are preserved. Advanced multilevel degenerative disc disease redemonstrated with endplate sclerosis, irregularity, a nd disc vacuum at multiple levels. Redemonstrated grade 1 retrolistheses at L2-L3, L3-L4, and L4-L5. Conus medullaris is normal. Scattered inadvertent subdural contrast collections are demonstrated. Intrathecal opacification is sa tisfactory. Hypertrophic facet arthropathy throughout at T12-L1, no significant spinal canal or neuroforaminal st enosis. At L1-L2, no significant spinal canal or neuroforaminal stenosis. At L2-L3, there is disc osteophyte complex, ligamentum flavum thickening, bulging disc particularly t owards the left, and facet arthropathy with grade 1 retrolisthesis. Changes cause moderate to severe spinal canal stenosis at this level. Very little intrathecal CSF is visualized here. Moderate right n euroforaminal stenosis. At L3-L4, hypertrophic facet arthropathy with ligamentum flavum thickening, grade 1 retrolisthesis, d isc osteophyte complex. Moderate to severe spinal canal stenosis is present here with very little if any intrathecal CSF visualized. There is moderate right and [id number] left neuroforaminal sten osis and At L4-L5, hypertrophic facet arthropathy with grade 1 retrolisthesis, ligamentum flavum thickening, a nd diffuse disc bulge. There is moderate to severe right neuroforaminal stenosis and mild to moderate left neuroforaminal stenosis. Mild overall spinal canal stenosis. At L5-S1, iatrogenic subdural contrast injection is noted. There is hypertrophic facet arthropathy wi th disc osteophyte complex. No significant spinal canal stenosis. However, there is severe left and m oderate right neuroforaminal stenosis. IMPRESSION: 1. ADVANCED DEGENERATIVE DISC DISEASE FROM L2 THROUGH S1 LEVELS WITH CORRESPONDING LIGAMENTUM FLAVUM THICKENING AND HYPERTROPHIC FACET ARTHROPATHY. 2. REDEMONSTRATED GRADE 1 RETROLISTHESIS FROM L2 THROUGH L5 LEVELS. 3. CHANGES RESULT IN MODERATE TO SEVERE SPINAL CANAL STENOSIS AT L2-L3 AND L3-L4, MILD AT L4-L5. 4. MODERATE TO SEVERE RIGHT NEUROFORAMINAL STENOSIS AT L4-L5 AND MODERATE ON THE RIGHT AT L2-L3, L3 -L4, AND L5-S1. 5. SEVERE LEFT NEUROFORAMINAL STENOSIS AT L5-S1.
[2018-06-17 13:33] VITALS: BP 134/75; PULSE 84; RESP 16
== END 2018-06-17 15:55 | disposition home or self-care (01) ==
LOC: RADPROMAIN 07:39
PROVIDERS: ATTEND Orthopaedic Surgery
DX: M51.36 Other intervertebral disc degeneration, lumbar region (principal); M51.37 Other intervertebral disc degeneration, lumbosacral region; M46.00 Spinal enthesopathy, site unspecified; M46.96 Unspecified inflammatory spondylopathy, lumbar region; M48.061 Spinal stenosis, lumbar region without neurogenic claudication; M48.07 Spinal stenosis, lumbosacral region; Z79.01 Long term (current) use of anticoagulants; Z79.891 Long term (current) use of opiate analgesic; Z79.52 Long term (current) use of systemic steroids; Z79.899 Other long term (current) drug therapy; Z87.891 Personal history of nicotine dependence; M19.90 Unspecified osteoarthritis, unspecified site; R86.9 Unspecified abnormal finding in specimens from male genital organs; I51.9 Heart disease, unspecified; Z95.0 Presence of cardiac pacemaker
CPT/HCPCS: 85049; 85610; 62304; 72132; J2001; Q9966

== ENCOUNTER → 2018-09-02 | Outpatient (CLI) | payer BC ==
[2018-09-02 13:23] LABS: Anion Gap 6 mmol/L; Blood Urea Nitrogen 23 mg/dL (9-20); Carbon Dioxide 28 mmol/L (22-30); Chloride 105 mmol/L (98-107); Glucose 96 mg/dL (74-99); Potassium 4.6 mmol/L (3.5-5.1); Sodium 139 mmol/L (137-145)
--- NOTE | 2018-09-03 11:28 | ECHOF ---
Referral Reason:I50.22 CHF, Z95.0 Presence of cardiac pacemaker... MEASUREMENTS -------- HEIGHT: 182.9 cm WEIGHT: 145.1 kg BP: RVIDd: 3.5 cm (< 3.3) IVSd: 1.6 cm (0.6 - 1.1) LVIDd: 5.6 cm (3.9 - 5.3) LVPWd: 1.9 cm (0.6 - 1.1) IVSs: 2.0 cm LVIDs: 4.3 cm LVPWs: 2.1 cm LA Diam: 4.8 cm (2.7 - 3.8) Ao Diam: 4.0 cm (2.0 - 3.7) AV Cusp: 1.8 cm (1.5 - 2.6) LA Diam: 4.7 cm (2.7 - 3.8) MV E Kurtis: 0.51 m/s MV DecT: 279 ms MV A Kurtis: 0.83 m/s MV E/A Ratio: 0.61 RAP: 5.00 mmHg RVSP: 18.36 mmHg FINDINGS -------- Sinus rhythm. Morbid Obesity The left ventricular size is normal. There is moderate concentric left ventricular hypertrophy. O verall left ventricular systolic function is mild-moderately impaired with, an EF between 40 - 45 %. The right ventricle is normal in size. The left atrium is moderately dilated. The right atrial size is normal. There is mild aortic valve sclerosis. There is no evidence of aortic regurgitation. Mild mitral annular calcification present. Mild mitral regurgitation is present. Mild tricuspid regurgitation present. There is no evidence of pulmonary hypertension. The right v entricular systolic pressure, as measured by Doppler, is 18.36mmHg. There is no pulmonic regurgitation present. The aortic root size is normal. There is no pericardial effusion. CONCLUSIONS -------- 1. Morbid Obesity 2. The left ventricular size is normal. 3. There is moderate concentric left ventricular hypertrophy. 4. Overall left ventricular systolic function is mild-moderately impaired with, an EF between 40 - 45 %. 5. The right ventricle is normal in size. 6. The left atrium is moderately dilated. 7. The right atrial size is normal. 8. There is mild aortic valve sclerosis. 9. Mild mitral annular calcification present. 10. Mild mitral regurgitation is present. 11. Mild tricuspid regurgitation present. 12. There is no evidence of pulmonary hypertension. 13. The right ventricular systolic pressure, as measured by Doppler, is 18.36mmHg. 14. There is no pulmonic regurgitation present. 15. The aortic root size is normal. 16. There is no pericardial effusion. [employer] LINE: Joanna Canchola RDCS
== END ==
LOC: RADECHMAIN 10:51
PROVIDERS: ATTEND Internal Medicine Cardiovascular Disease
DX: I08.1 Rheumatic disorders of both mitral and tricuspid valves (principal); I72.9 Aneurysm of unspecified site; Z95.0 Presence of cardiac pacemaker
CPT/HCPCS: 80048; 83880; 93306

== ENCOUNTER → 2019-04-03 | Outpatient (CLI) | payer MEDICARE, OTHER ==
--- NOTE | 2019-04-03 12:11 | P.HPBAR ---
Bariatric H&P - History & Physicial H&P Date: 04/03/19 History & Physicial: Visit/CC: Patient initial contact: Initial weight: Initial weight in pounds: Height: Initial BMI: Last weight: Current weight: Current weight in pounds: Current BMI: Chase body weight (based on NIH guidelines): Excess body weight loss: The patient is a 63 year-old M who presents for Bariatric Assessment. HPI: He presents for weight loss. He is also on Mobic. Highest weight of 338 pounds. He denies heartburn. He has a hiatal hernia. He was off Prilosec. Chest Xray for COPD. PLAN: 1. EKG 2. Pulmonary test 3. MBSC all reviewed....sleeve for history of mulitple abdominal surgeries 4. Pulmonary clearance 5. Cardiac clearance Past Medical History Past Medical History: Atrial Flutter, Asthma, Heart Failure, GERD/Reflux, Hyperlipidemia, Hypertension, Osteoarthritis (OA), Prostate Disorder, Sleep Apnea/CPAP/BIPAP Additional Past Medical History / Comment(s): admitted to [facility] w/ pne, copd,asthma, other past hx includes GOUT, a flutter, scoliosis, ddd(neck), ablation, back pain, neck problems, lumbar spine History of Any Multi-Drug Resistant Organisms: None Reported Year Discovered:: 04/26/2016 MDRO Source:: Bilat Leg Past Surgical History: Bowel Resection, Cardiac Ablation, Pacemaker, Tonsillectomy Additional Past Surgical History / Comment(s): CRISELDA AND PLATE IN ankle(left), vasectomy, ruptured bowel- colon resection - colostomy reversal April 2016 Past Anesthesia/Blood Transfusion Reactions: No Reported Reaction Type of Cardiac Device: Permanent Pacemaker, AICD Device Placement Date:: February 2018 Past Psychological History: Anxiety Additional Psychological History / Comment(s): PT IS A RETIRED [employer]- NOW WORKSD FOR [employer]. IS INDEPENDANT. Smoking Status: Former smoker Past Alcohol Use History: Occasional Additional Past Alcohol Use History / Comment(s): STARTED SMOKING AT AGE 12, SMOKED 1/2-1 PPD QUIT 9 YEARS AGO Past Drug Use History: None Reported - Past Family History Father Family Medical History: Cancer, Prostate Disorder Additional Family Medical History / Comment(s): PROSTATE AND LUNG CANCER, IRREGULAR HEART BEAT Mother Family Medical History: Diabetes Mellitus, Hypertension, Osteoarthritis (OA) Bariatric Checklist Checklist: Plan: Checklist: EGD: 1. Hiatal hernia: 2. H. Pylori: HgbA1c: Vitamin D: Smoking: Former smoker Primary care physician referral: Psychiatry clearance: Cardiology clearance: Sleep study: Diet journal: VTE risk score: VTE risk level: Rehab needs at discharge:
[2019-04-03 12:41] VITALS: BP 142/91; PULSE 78; TEMP 98.2; BMI 43.4
[2019-04-03 13:32] LABS: HCT 41.3 % (39.0-53.0); HGB 13.3 gm/dL (13.0-17.5); MCH 30.2 pg (25.0-35.0); MCHC 32.3 g/dL (31.0-37.0); MCV 93.4 fL (80.0-100.0); Mean Platelet Volume 7.3; Platelet Count 227 k/uL (150-450); RBC 4.42 m/uL (4.30-5.90); RDW 15.4 % (11.5-15.5); WBC 8.5 k/uL (3.8-10.6)
[2019-04-03 13:39] LABS: INR 0.9 (<1.2); Prothrombin Time 10.2 sec (9.0-12.0)
--- NOTE | 2019-04-03 14:21 | XR ---
EXAMINATION TYPE: XR chest 2V DATE OF EXAM: 04/03/2019 COMPARISON: Prior chest x-ray 07/23/2018 HISTORY: Respiratory status, COPD TECHNIQUE: Frontal and lateral views of the chest are obtained. FINDINGS: There is a generator in left pectoral region, intracardiac defibrillator leads are present in the right ventricle, right atrium, coronary sinus as on prior exam. Perihilar vascular indistinct ness is present, the interstitium is increased. Heart size is likely stable accounting for scoliosis, rotation, differences in technique. No evident pneumothorax or pleural effusion. Prominent lung volu mes with flattening the hemidiaphragms compatible with underlying COPD. IMPRESSION: There may be component of volume overload, interstitial edema in a patient with pre-exis ting COPD.
[2019-04-03 19:03] LABS: African American GFR (CKD) 91.1 (60.0-200.0); Albumin 4.2 g/dL (3.80-4.90); Anion Gap 6.6 mmol/L (4.00-12.00); Calcium 9.2 mg/dL (8.7-10.3); Carbon Dioxide 30.4 mmol/L (21.6-31.8); Globulin 2.1 g/dL (1.6-3.3); LDL Cholesterol,Calculated 89.2 mg/dL (0.0-131.0); Magnesium 2.2 mg/dL (1.5-2.4); Potassium 4.8 mmol/L (3.5-5.5); Total Bilirubin 0.5 mg/dL (0.3-1.2); Total Protein 6.3 g/dL (6.2-8.2); VLDL Calculation 39.8 mg/dL (5.00-40.00)
[2019-04-03 21:19] LABS: Hemoglobin A1C 5.9 % (4.0-6.0)
[2019-04-03 21:21] LABS: Vitamin D 25 Hydroxy 15.3 ng/mL (30.0-100.0)
[2019-04-03 21:23] LABS: Folate, Serum 21.1 ng/mL; Iron Saturation 27.24 (15.00-50.00); Parathyroid Hormone Intact 119.1 pg/mL (14.0-72.0)
[2019-04-04 14:10] LABS: Zinc, Serum 63 ug/dL (60-130)
[2019-04-05 08:33] LABS: Vit B1(Thiamine) 62 ug/L (38-122)
[2019-04-07 06:37] LABS: Vitamin A 71 ug/dL (38-106)
[2019-04-08 19:07] LABS: Selenium 104 mcg/L (63-160)
== END | disposition home or self-care (01) ==
LOC: BARWHC3 10:52
PROVIDERS: ATTEND Surgery Plastic and Reconstructive Surgery
DX: E66.01 Morbid (severe) obesity due to excess calories (principal); E21.1 Secondary hyperparathyroidism, not elsewhere classified; E89.1 Postprocedural hypoinsulinemia; D50.9 Iron deficiency anemia, unspecified; K90.9 Intestinal malabsorption, unspecified; E55.9 Vitamin D deficiency, unspecified; K76.9 Liver disease, unspecified; N19 Unspecified kidney failure; K50.90 Crohn's disease, unspecified, without complications; Z87.891 Personal history of nicotine dependence; Z68.41 Body mass index [BMI] 40.0-44.9, adult
CPT/HCPCS: 84255; 84134; 84425; 80061; 80053; 82607; 82728; 82525; 82746; 83540; 83550; 83735; 84100; 84443; 84590; 84630; 85027; 85610; 85730; 82306; 83970; 83036; 71046; 36415; G0463; 99211

== ENCOUNTER 2019-05-26 11:05 | Day surgery (SDC) | payer MEDICARE, OTHER ==
[2019-05-21 12:56] VITALS: BMI 45.4
--- NOTE | 2019-05-25 22:38 | P.GSHP ---
History of Present Illness H&P Date: 05/26/19 CHIEF COMPLAINT: GERD HISTORY OF PRESENT ILLNESS: The patient is a 63-year-old male who presents reports gastroesophageal reflux disease. Upper endoscopy was offered for further evaluation and management. PAST MEDICAL HISTORY: Please see list. PAST SURGICAL HISTORY: Please see list. MEDICATIONS: Please see list. ALLERGIES: Please see list. SOCIAL HISTORY: No illicit drug use FAMILY HISTORY: No reports of Crohn disease or ulcerative colitis. REVIEW OF ORGAN SYSTEMS: CONSTITUTIONAL: No reports of fevers or chills. GI: Denies any blood in stools or constipation. PHYSICAL EXAM: VITAL SIGNS: Stable GENERAL: Well-developed and pleasant in no acute distress. HEENT: No scleral icterus. Extraocular movements grossly intact. Moist buccal mucosa. NECK: Supple without lymphadenopathy. CHEST: Unlabored respirations. Equal bilateral excursions. CARDIOVASCULAR: Regular rate and rhythm. Distal 2+ pulses. ABDOMEN: Soft, nondistended. MUSCULOSKELETAL: No clubbing, cyanosis, or edema. ASSESSMENT: 1. Gastroesophageal reflux disease PLAN: 1. Recommend proceeding with an upper endoscopy Past Medical History Past Medical History: Atrial Flutter, Asthma, Heart Failure, COPD, GERD/Reflux, Hyperlipidemia, Hypertension, Osteoarthritis (OA), Prostate Disorder, Sleep Apnea/CPAP/BIPAP Additional Past Medical History / Comment(s): GOUT,scoliosis, ddd(neck),, back pain, neck problems-PINCHED NERVE, lumbar spine History of Any Multi-Drug Resistant Organisms: None Reported Date of last positivie culture/infection: 04/26/2016 MDRO Source:: Bilat Leg Past Surgical History: AICD, Bowel Resection, Cardiac Ablation, Orthopedic Surgery, Pacemaker, Tonsillectomy Additional Past Surgical History / Comment(s): CRISELDA AND PLATE IN ankle(left), vasectomy, ruptured bowel- colon resection - colostomy WITH reversal April 2016, COLONOSCOPY, EGD Past Anesthesia/Blood Transfusion Reactions: No Reported Reaction Additional Past Anesthesia/Blood Transfusion Reaction / Comment(s): HAS HAD TRANSFUSION WITH NO PROBLEMS Type of Cardiac Device: Permanent Pacemaker, AICD Device Placement Date:: February 2018 Smoking Status: Former smoker - Past Family History Father Family Medical History: Cancer, Prostate Disorder Additional Family Medical History / Comment(s): PROSTATE AND LUNG CANCER, IRREG ULAR HEART BEAT Mother Family Medical History: Diabetes Mellitus, Hypertension, Osteoarthritis (OA) Medications and Allergies Home Medications Medication Instructions Recorded Confirmed Type Omeprazole [PriLOSEC] 20 mg PO DAILY@1200 04/06/15 05/21/19 History Tamsulosin HCl [Flomax] 0.4 mg PO BID 04/06/15 05/21/19 History Apixaban [Eliquis] 5 mg PO BID 12/02/15 05/21/19 History Finasteride 5 mg PO HS 04/14/16 05/21/19 History Simvastatin 40 mg PO HS 04/14/16 05/21/19 History Carvedilol [Coreg] 25 mg PO AC-BID 04/18/16 05/21/19 History Sotalol HCl [Betapace] 120 mg PO BID 05/17/16 05/21/19 History Albuterol Nebulized [Ventolin 2.5 mg INHALATION RT-QID PRN 09/29/16 05/21/19 History Nebulized] Potassium Chloride ER [K-Dur 20] 20 meq PO DAILY 09/29/16 05/21/19 History Albuterol Sulfate [Proair Hfa] 2 puff INHALATION RT-BID PRN 11/13/17 05/21/19 History Vitamin A 10,000 unit PO DAILY@1200 11/13/17 05/21/19 History Allopurinol [Zyloprim] 100 mg PO DAILY@1200 tab 11/16/17 05/21/19 Rx HYDROcodone/APAP 10-325MG [[place] 1 tab PO BID PRN 01/07/18 05/21/19 History 10-325] tiZANidine [Zanaflex] 2 mg PO HS 01/07/18 05/21/19 History Furosemide [Lasix] 40 mg PO DAILY 05/30/18 05/21/19 History Sacubitril/Valsartan [Entresto 97 1 each PO BID 05/30/18 05/21/19 History mg-103 mg Tablet] Gabapentin [Neurontin] 300 mg PO BID 05/21/19 05/21/19 History Meloxicam [Mobic] 15 mg PO MOTUWETHFR 05/21/19 05/21/19 History Zolpidem [Ambien] 5 mg PO HS PRN 05/21/19 05/21/19 History Allergies Allergy/AdvReac Type Severity Reaction Status Date / Time No Known Allergies Allergy Verified 05/21/19 12:43
[~2019-05-26 11:05] MED LIST changes: +LACTATED RINGERS 1,000 ML IV SCH; -PREMYELOGRAM MEDICATION REVIEW 1 EACH MISC PO NR
[2019-05-26 11:35] VITALS: TEMP 97.9
[2019-05-26] MEDS ORDERED: LIDOCAINE 1% 20 ML VIAL (10MG/ML) FOR IV START INTRADERMA ONE (11:48)
[2019-05-26] MEDS ORDERED: LIDOCAINE 1% INJ 10MG/ML (20 ML MDV) ONE (12:15)
[2019-05-26] MEDS ORDERED: PROPOFOL 10 MG/ML 20 ML VIAL IV ONE (12:15)
--- NOTE | 2019-05-26 12:39 | P.PCN ---
Date of Procedure: 05/26/19 Description of Procedure: PREOPERATIVE DIAGNOSIS: Gastroesophageal reflux disease. Morbid obesity. POSTOPERATIVE DIAGNOSIS: Morbid obesity. Gastritis, chronic superficial Gastroesophageal reflux disease. OPERATION: Esophagogastroduodenoscopy with biopsies along antrum. SURGEON: Courtney Chen MD ANESTHESIA: MAC. INDICATIONS: The patient is a 63-year-old male who presents with a history of reflux disease. Benefits and risks of the procedure were described. Informed consent was obtained. DESCRIPTION: The patient was brought into the endoscopy suite and laid in the left lateral decubitus position. An Olympus gastroscope was passed along the posterior oropharynx down to the distal esophagus where the squamocolumnar junction was encountered at 45 cm from the incisors. The stomach was entered and no bile reflux was found. Additional findings are listed below. Biopsies with cold forceps were obtained of the antrum. The first through third portion of the duodenum was examined and unremarkable. Retroflexion of the scope confirmed Hill grade 2 lower esophageal valve. The squamocolumnar junction demonstrated LA grade B erosive esophagitis. The stomach was desufflated. The patient tolerated the procedure well. FINDINGS: Squamocolumnar junction 45 cm from the incisors. Diaphragmatic hiatus at 45 cm. Hill grade 2 lower esophageal valve. LA grade A erosive esophagitis. No active duodenitis. Chronic gastritis RECOMMENDATIONS: Upper endoscopy as needed. Recommend increase omeprazole from 20 mg to 40 mg daily for a period of gastritis Plan - Discharge Summary Discharge Rx Participant: No New Discharge Prescriptions: No Action Tamsulosin HCl [Flomax] 0.4 mg PO BID Omeprazole [PriLOSEC] 20 mg PO DAILY@1200 Apixaban [Eliquis] 5 mg PO BID Simvastatin 40 mg PO HS Finasteride 5 mg PO HS Carvedilol [Coreg] 25 mg PO AC-BID Sotalol HCl [Betapace] 120 mg PO BID Potassium Chloride ER [K-Dur 20] 20 meq PO DAILY Albuterol Nebulized [Ventolin Nebulized] 2.5 mg INHALATION RT-QID PRN PRN Reason: Shortness Of Breath Albuterol Sulfate [Proair Hfa] 2 puff INHALATION RT-BID PRN PRN Reason: Shortness Of Breath Vitamin A 10,000 unit PO DAILY@1200 Allopurinol [Zyloprim] 100 mg PO DAILY@1200 tab tiZANidine [Zanaflex] 2 mg PO HS HYDROcodone/APAP 10-325MG [[place] 10-325] 1 tab PO BID PRN PRN Reason: Pain Sacubitril/Valsartan [Entresto 97 mg-103 mg Tablet] 1 each PO BID Furosemide [Lasix] 40 mg PO DAILY Zolpidem [Ambien] 5 mg PO HS PRN PRN Reason: Insomnia Meloxicam [Mobic] 15 mg PO MOTUWETHFR Gabapentin [Neurontin] 300 mg PO BID Discharge Medication List Omeprazole [PriLOSEC] 20 mg PO DAILY@1200 04/06/15 [History] Tamsulosin HCl [Flomax] 0.4 mg PO BID 04/06/15 [History] Apixaban [Eliquis] 5 mg PO BID 12/02/15 [History] Finasteride 5 mg PO HS 04/14/16 [History] Simvastatin 40 mg PO HS 04/14/16 [History] Carvedilol [Coreg] 25 mg PO AC-BID 04/18/16 [History] Sotalol HCl [Betapace] 120 mg PO BID 05/17/16 [History] Albuterol Nebulized [Ventolin Nebulized] 2.5 mg INHALATION RT-QID PRN 09/29/16 [History] Potassium Chloride ER [K-Dur 20] 20 meq PO DAILY 09/29/16 [History] Albuterol Sulfate [Proair Hfa] 2 puff INHALATION RT-BID PRN 11/13/17 [History] Vitamin A 10,000 unit PO DAILY@1200 11/13/17 [History] Allopurinol [Zyloprim] 100 mg PO DAILY@1200 tab 11/16/17 [Rx] HYDROcodone/APAP 10-325MG [[place] 10-325] 1 tab PO BID PRN 01/07/18 [History] tiZANidine [Zanaflex] 2 mg PO HS 01/07/18 [History] Furosemide [Lasix] 40 mg PO DAILY 05/30/18 [History] Sacubitril/Valsartan [Entresto 97 mg-103 mg Tablet] 1 each PO BID 05/30/18 [History] Gabapentin [Neurontin] 300 mg PO BID 05/21/19 [History] Meloxicam [Mobic] 15 mg PO MOTUWETHFR 05/21/19 [History] Zolpidem [Ambien] 5 mg PO HS PRN 05/21/19 [History] Follow up Appointment(s)/Referral(s): [facility] [NON-STAFF] - 06/11/19 Patient Instructions/Handouts: Gastritis (DC), Diet for Stomach Ulcers and Gastritis (ED), Gastroesophageal Reflux Disease (DC) Discharge Disposition: HOME SELF-CARE
[2019-05-26 13:06] VITALS: BP 151/83; PULSE 72; RESP 16
== END 2019-05-26 13:33 | disposition home or self-care (01) ==
LOC: ORWHC2ENDO 11:05
PROVIDERS: ATTEND Surgery Plastic and Reconstructive Surgery
DX: K29.50 Unspecified chronic gastritis without bleeding (principal); K21.0 Gastro-esophageal reflux disease with esophagitis; K44.9 Diaphragmatic hernia without obstruction or gangrene; E66.01 Morbid (severe) obesity due to excess calories; Z79.01 Long term (current) use of anticoagulants; Z68.42 Body mass index [BMI] 45.0-49.9, adult; I48.92 Unspecified atrial flutter; J44.9 Chronic obstructive pulmonary disease, unspecified; E78.5 Hyperlipidemia, unspecified; G47.30 Sleep apnea, unspecified; Z99.89 Dependence on other enabling machines and devices; I11.0 Hypertensive heart disease with heart failure; I50.9 Heart failure, unspecified; I25.10 Atherosclerotic heart disease of native coronary artery without angina pectoris; M19.90 Unspecified osteoarthritis, unspecified site; Z95.810 Presence of automatic (implantable) cardiac defibrillator; Z87.891 Personal history of nicotine dependence; Z80.42 Family history of malignant neoplasm of prostate; Z80.1 Family history of malignant neoplasm of trachea, bronchus and lung; Z83.3 Family history of diabetes mellitus; Z82.49 Family history of ischemic heart disease and other diseases of the circulatory system; Z82.61 Family history of arthritis; Z79.891 Long term (current) use of opiate analgesic
CPT/HCPCS: 88305; 88342; 43239; J2001; J2704

== ENCOUNTER → 2019-06-04 | Outpatient (CLI) | payer MEDICARE, OTHER ==
[2019-06-04 15:02] VITALS: BP 125/79; PULSE 75; TEMP 98.3; BMI 43.4
--- NOTE | 2019-06-04 15:51 | P.PN ---
Subjective Progress Note Date: 06/04/19 DATE OF SERVICE: 06/04/2019 CHIEF COMPLAINT: Morbid obesity HISTORY OF PRESENT ILLNESS: Bandar Moreno is a 63-year-old male who comes with lifelong morbid obesity. He has developed hypertensive heart disease, hyperlipidemia, congestive heart failure and obstructive sleep apnea as a result of his morbid obesity. Now he is looking into permanent options for weight loss. He comes in after his EGD. He has history of multiple abdominal surgeries. No reports of active abdominal pain. At height of 6 feet 2 inches, his ideal body weight is 193 pounds. Highest weight of 338 pounds with BMI of 43.5. Today, he comes in 338 pounds from 337 pounds, 2 months ago. He has gained 1 pound in 2 months. His body mass index is 43.4. He is 145 pounds overweight. PAST MEDICAL HISTORY: 1. Morbid obesity due to excess calories 2. Body mass index of 43.5, initial 3. Osteoarthritis of the knees. 4. Osteoarthritis of the lower back. 5. Hypertensive heart disease. 6. Gastroesophageal reflux disease 7. Hyperlipidemia 8. Obstructive sleep apnea 9. Chronic obstructive pulmonary disease 10. Obstructive uropathy 11. Atrial fibrillation 12. Congestive heart failure 13. Chronic pain syndrome 14. Gout 15. Diverticulitis 16. Anxiety disorder 17. Hiatal hernia PAST SURGICAL HISTORY: 1. Colostomy creation with reversal 2. Incisional hernia repair 3. Pacemaker placement 4. Tonsillectomy 5. Cardiac ablation 6. Upper endoscopy HOME MEDICATIONS: ALLERGIES: Home Medications Medication Instructions Recorded Confirmed Tamsulosin HCl [Flomax] 0.4 mg PO BID 04/06/15 06/16/19 Apixaban [Eliquis] 5 mg PO BID 12/02/15 06/16/19 Finasteride 5 mg PO HS 04/14/16 06/16/19 Simvastatin 40 mg PO HS 04/14/16 06/16/19 Carvedilol [Coreg] 25 mg PO AC-BID 04/18/16 06/16/19 Sotalol HCl [Betapace] 120 mg PO BID 05/17/16 06/16/19 Albuterol Nebulized [Ventolin 2.5 mg INHALATION RT-QID PRN 09/29/16 06/16/19 Nebulized] Potassium Chloride ER [K-Dur 20] 20 meq PO DAILY 09/29/16 06/16/19 Albuterol Sulfate [Proair Hfa] 2 puff INHALATION RT-BID PRN 11/13/17 06/16/19 Vitamin A 10,000 unit PO DAILY@1200 11/13/17 06/16/19 HYDROcodone/APAP 10-325MG [[place] 1 tab PO BID PRN 01/07/18 06/16/19 10-325] tiZANidine [Zanaflex] 2 mg PO HS 01/07/18 06/16/19 Furosemide [Lasix] 40 mg PO DAILY 05/30/18 06/16/19 Sacubitril/Valsartan [Entresto 97 1 each PO BID 05/30/18 06/16/19 mg-103 mg Tablet] Gabapentin [Neurontin] 300 mg PO BID 05/21/19 06/16/19 Meloxicam [Mobic] 15 mg PO MOTUWETHFR 05/21/19 06/16/19 Zolpidem [Ambien] 5 mg PO HS PRN 05/21/19 06/16/19 Previous Rx's Medication Instructions Recorded Allopurinol [Zyloprim] 100 mg PO DAILY@1200 tab 11/16/17 Omeprazole 40 mg PO DAILY #90 capsule. 05/26/19 SOCIAL HISTORY: Past tobacco use. FAMILY HISTORY: No family history of ulcerative colitis disease or Crohn's disease. Family history of morbid obesity. No lupus in the family. No reports of stomach or esophageal cancer. REVIEW OF ORGAN SYSTEMS: CONSTITUTIONAL: At height of 6 feet 2 inches, his ideal body weight is 193 pounds. Highest weight of 338 pounds with BMI of 43.5. He comes in 337 pounds. His body mass index is 43.4. He is 144 pounds overweight. HEENT: Denies any active troubles with vision or hearing. ENDOCRINE: No diabetes. No hypothyroidism. CARDIOVASCULAR: Past reports of palpitations or heart attacks or chest pain. RESPIRATORY: Has daytime somnolence. Has asthma. GASTROINTESTINAL: Denies any bright red blood per rectum. No diarrhea. No constipation. Has new gastroesophageal reflux disease. MUSCULOSKELETAL: Has lower back pain and joint pain. Has osteoarthritis of the knees. History of bilateral lower extremity edema. NEURO: No headaches. No seizure disorders. PSYCH: Has depression. No suicidal ideation. Has anxiety. RHEUMATOLOGIC: No lupus. No rheumatoid arthritis. HEMATOLOGIC: Denies any abnormal bleeding or bruising. No personal history of DVTs. SKIN: No rash. No skin cancer. PHYSICAL EXAM: VITAL SIGNS: Height 6 foot 2 inches, weight 338 pounds. BMI 43.4 Vital Signs Temp 98.3 F 06/04/19 14:50 Pulse 75 06/04/19 14:50 Resp BP 125/79 06/04/19 14:50 Pulse Ox GENERAL: Well-developed in no acute distress. HEENT: No scleral icterus. Extraocular movements grossly intact. Hears conversational speech. No nasal drainage. NECK: Supple without lymphadenopathy. CHEST: Nonlabored respirations with equal bilateral excursions. CARDIOVASCULAR: Regular rate and regular rhythm. Distal 2+ pulses. ABDOMEN: Obese, soft, nontender, nondistended. MUSCULOSKELETAL: No clubbing, cyanosis. Gross strength 5/5 distal lower extremities. Large lipoma of 6-cm of left forearm without skin changes. NEURO: No focal or lateralizing signs. Cranial nerves 2 through 12 grossly within normal limits. PSYCH: Appropriate affect. Alert and oriented to person, place and time. SKIN: Good skin turgor. Well perfused. LABS: Vitamin D is low PTH is elevated EGD FINDINGS: Squamocolumnar junction 45 cm from the incisors. Diaphragmatic hiatus at 45 cm. Hill grade 2 lower esophageal valve. LA grade A erosive esophagitis. No active duodenitis. Chronic gastritis Final Pathologic Diagnosis GASTRIC ANTRUM, BIOPSY: Chronic gastritis. An appropriately controlled immunohistochemical study for Helicobacter pylori is negative for organisms. ASSESSMENT: 1. Morbid obesity due to excess calories 2. Body mass index of 43.5, initial 3. Osteoarthritis of the knees. 4. Osteoarthritis of the lower back. 5. Hypertensive heart disease. 6. Gastroesophageal reflux disease 7. Hyperlipidemia 8. Obstructive sleep apnea 9. Chronic obstructive pulmonary disease 10. Obstructive uropathy 11. Atrial fibrillation 12. Congestive heart failure 13. Chronic pain syndrome 14. Gout 15. Diverticulitis 16. Anxiety disorder 17. Lipoma of the left arm 18. Chronic pain PLAN: 1. He has large lipoma of 6-cm of left forearm and is looking into excision, 2. He has history of multiple abdominal surgeries. He is at increased risk for complications with a gastric bypass. At this time, we will plan for sleeve gastrectomy 3. He is pending multiple clearances including pulmonary and cardiac 4. He takes narcotics for chronic pain that also complicates his david-operative and post-operative care. 5. Follow up after completion of medical clearances. Objective - Vital Signs Vital signs: Vital Signs Temp 98.3 F 06/04/19 14:50 Pulse 75 06/04/19 14:50 Resp BP 125/79 06/04/19 14:50 Pulse Ox Intake & Output 06/03/19 06/04/19 06/04/19 18:59 06:59 18:59 Weight 153.45 kg
== END | disposition home or self-care (01) ==
LOC: BARWHC3 13:48
PROVIDERS: ATTEND Surgery Plastic and Reconstructive Surgery
DX: E66.01 Morbid (severe) obesity due to excess calories (principal); M17.0 Bilateral primary osteoarthritis of knee; M47.816 Spondylosis without myelopathy or radiculopathy, lumbar region; K21.9 Gastro-esophageal reflux disease without esophagitis; I11.0 Hypertensive heart disease with heart failure; E78.5 Hyperlipidemia, unspecified; G47.33 Obstructive sleep apnea (adult) (pediatric); J44.9 Chronic obstructive pulmonary disease, unspecified; N13.9 Obstructive and reflux uropathy, unspecified; I48.91 Unspecified atrial fibrillation; I50.9 Heart failure, unspecified; G89.4 Chronic pain syndrome; M10.9 Gout, unspecified; K57.92 Diverticulitis of intestine, part unspecified, without perforation or abscess without bleeding; F41.9 Anxiety disorder, unspecified; D17.22 Benign lipomatous neoplasm of skin and subcutaneous tissue of left arm; Z68.41 Body mass index [BMI] 40.0-44.9, adult; Z87.891 Personal history of nicotine dependence; Z95.0 Presence of cardiac pacemaker; Z90.09 Acquired absence of other part of head and neck; Z98.890 Other specified postprocedural states; Z79.01 Long term (current) use of anticoagulants; Z79.899 Other long term (current) drug therapy
CPT/HCPCS: 99211

== ENCOUNTER → 2019-06-16 | Outpatient (CLI) | payer MEDICARE, OTHER ==
[2019-06-16 11:56] VITALS: BMI 43.7
== END | disposition home or self-care (01) ==
LOC: BARWHC3 08:38
PROVIDERS: ATTEND Surgery Plastic and Reconstructive Surgery
DX: E66.01 Morbid (severe) obesity due to excess calories (principal); Z68.41 Body mass index [BMI] 40.0-44.9, adult
CPT/HCPCS: 97804

== ENCOUNTER → 2019-07-23 | Outpatient (CLI) | payer MEDICARE, OTHER ==
--- NOTE | 2019-07-23 16:23 | P.PN ---
Subjective Progress Note Date: 07/23/19 DATE OF SERVICE: 07/23/2019 CHIEF COMPLAINT: Morbid obesity HISTORY OF PRESENT ILLNESS: Bandar Moreno is a 63-year-old male who comes with lifelong morbid obesity. He has developed hypertensive heart disease, hyperlipidemia, congestive heart failure and obstructive sleep apnea as a result of his morbid obesity. He comes in looking for gastrectomy procedure such as the sleeve gastrectomy. He is on Eliquis for his atrial fibrillation and Mobic for his severe back pain. He comes in with uncontrolled weight gain. At height of 6 feet 2 inches, his ideal body weight is 193 pounds. Highest weight of 338 pounds with BMI of 43.5. Today, he comes in 339 pounds from 338 pounds, 2 months ago. He has gained 2 pound in 2 months. His body mass index is 43.7. He is 146 pounds overweight. PAST MEDICAL HISTORY: 1. Morbid obesity due to excess calories 2. Body mass index of 43.7 3. Osteoarthritis of the knees. 4. Osteoarthritis of the lower back. 5. Hypertensive heart disease. 6. Gastroesophageal reflux disease 7. Hyperlipidemia 8. Obstructive sleep apnea 9. Chronic obstructive pulmonary disease 10. Obstructive uropathy 11. Atrial fibrillation 12. Congestive heart failure 13. Chronic pain syndrome 14. Gout 15. Diverticulitis 16. Anxiety disorder 17. Hiatal hernia PAST SURGICAL HISTORY: 1. Colostomy creation with reversal 2. Incisional hernia repair 3. Pacemaker placement 4. Tonsillectomy 5. Cardiac ablation 6. Upper endoscopy HOME MEDICATIONS: ALLERGIES: Home Medications Medication Instructions Recorded Confirmed Tamsulosin HCl [Flomax] 0.4 mg PO BID 04/06/15 06/16/19 Apixaban [Eliquis] 5 mg PO BID 12/02/15 06/16/19 Finasteride 5 mg PO HS 04/14/16 06/16/19 Simvastatin 40 mg PO HS 04/14/16 06/16/19 Carvedilol [Coreg] 25 mg PO AC-BID 04/18/16 06/16/19 Sotalol HCl [Betapace] 120 mg PO BID 05/17/16 06/16/19 Albuterol Nebulized [Ventolin 2.5 mg INHALATION RT-QID PRN 09/29/16 06/16/19 Nebulized] Potassium Chloride ER [K-Dur 20] 20 meq PO DAILY 09/29/16 06/16/19 Albuterol Sulfate [Proair Hfa] 2 puff INHALATION RT-BID PRN 11/13/17 06/16/19 Vitamin A 10,000 unit PO DAILY@1200 11/13/17 06/16/19 HYDROcodone/APAP 10-325MG [[place] 1 tab PO BID PRN 01/07/18 06/16/19 10-325] tiZANidine [Zanaflex] 2 mg PO HS 01/07/18 06/16/19 Furosemide [Lasix] 40 mg PO DAILY 05/30/18 06/16/19 Sacubitril/Valsartan [Entresto 97 1 each PO BID 05/30/18 06/16/19 mg-103 mg Tablet] Gabapentin [Neurontin] 300 mg PO BID 05/21/19 06/16/19 Meloxicam [Mobic] 15 mg PO MOTUWETHFR 05/21/19 06/16/19 Zolpidem [Ambien] 5 mg PO HS PRN 05/21/19 06/16/19 Previous Rx's Medication Instructions Recorded Allopurinol [Zyloprim] 100 mg PO DAILY@1200 tab 11/16/17 Omeprazole 40 mg PO DAILY #90 capsule. 05/26/19 SOCIAL HISTORY: Past tobacco use. FAMILY HISTORY: No family history of ulcerative colitis disease or Crohn's di sease. Family history of morbid obesity. No lupus in the family. No reports of stomach or esophageal cancer. REVIEW OF ORGAN SYSTEMS: CONSTITUTIONAL: At height of 6 feet 2 inches, his ideal body weight is 193 pounds. Highest weight of 339 pounds with BMI of 43.7. His body mass index is 43.7. He is 146 pounds overweight. HEENT: Denies any active troubles with vision or hearing. ENDOCRINE: No diabetes. No hypothyroidism. CARDIOVASCULAR: Past reports of palpitations or heart attacks or chest pain. RESPIRATORY: Has daytime somnolence. Has asthma. Has moderate to severe sleep apnea and COPD. GASTROINTESTINAL: Denies any bright red blood per rectum. No diarrhea. No constipation. Has gastroesophageal reflux disease. MUSCULOSKELETAL: Has lower back pain and joint pain. Has osteoarthritis of the knees. History of bilateral lower extremity edema. NEURO: No headaches. No seizure disorders. PSYCH: Has depression. No suicidal ideation. Has anxiety. RHEUMATOLOGIC: No lupus. No rheumatoid arthritis. HEMATOLOGIC: Denies any abnormal bleeding or bruising. No personal history of DVTs. On anticoagulants. SKIN: No rash. No skin cancer. PHYSICAL EXAM: VITAL SIGNS: Height 6 foot 2 inches, weight 339 pounds. BMI 43.7 Vital Signs Temp 98.0 F 07/23/19 17:37 Pulse 83 07/23/19 17:37 Resp 16 07/23/19 17:37 BP 134/81 07/23/19 17:37 Pulse Ox GENERAL: Well-developed in no acute distress. HEENT: No scleral icterus. Extraocular movements grossly intact. Hears conversational speech. No nasal drainage. NECK: Supple without lymphadenopathy. CHEST: Nonlabored respirations with equal bilateral excursions. CARDIOVASCULAR: Regular rate and regular rhythm. Distal 2+ pulses. ABDOMEN: Obese, soft, nontender, nondistended. MUSCULOSKELETAL: No clubbing, cyanosis. Gross strength 5/5 distal lower extremities. . NEURO: No focal or lateralizing signs. Cranial nerves 2 through 12 grossly within normal limits. PSYCH: Appropriate affect. Alert and oriented to person, place and time. SKIN: Good skin turgor. Well perfused. ASSESSMENT: 1. Morbid obesity due to excess calories 2. Body mass index of 43.7 3. Osteoarthritis of the knees. 4. Osteoarthritis of the lower back. 5. Hypertensive heart disease. 6. Gastroesophageal reflux disease 7. Hyperlipidemia 8. Obstructive sleep apnea 9. Chronic obstructive pulmonary disease 10. Obstructive uropathy 11. Atrial fibrillation 12. Congestive heart failure 13. Chronic pain syndrome 14. Gout 15. Diverticulitis 16. Anxiety disorder 17. Lipoma of the left arm 18. Chronic pain PLAN: 1. Bariatric options between a sleeve, band and a Tate-en-Y gastric bypass were reviewed in detail. The patient elected for a sleeve gastrectomy. Robotic assisted approach described. 2. The [place] [facility] Data was also reviewed with benefits and risks as described. 3. An 8 page second-generation bariatric consent form was reviewed in detail including potential of bleeding, infection, leaks, adequate weight loss, nutritional deficiencies which the patient demonstrated understanding of the risks. 4. A 2 week high-protein low caloric 800 kcal diet described to address hepatom egaly. 5. Preoperative labs including complete metabolic panel and CBC with type and screen recommended. 6. DVT prophylaxis per [place] [facility]. 7. Antibiotic prophylaxis. 8. Inpatient hospitalization anticipated for more than 2 nights. 9. All questions and concerns were addressed with the patient. 10. He is very high risk for surgical complications with severe COPD including his anti-coagulant Eliquis and taking Mobic which is contraindicated and increases risk for bleeding.
[2019-07-23 17:39] VITALS: BP 134/81; PULSE 83; RESP 16; TEMP 98; BMI 43.6
== END | disposition home or self-care (01) ==
LOC: BARWHC3 14:41
PROVIDERS: ATTEND Surgery Plastic and Reconstructive Surgery
DX: E66.01 Morbid (severe) obesity due to excess calories (principal); Z68.41 Body mass index [BMI] 40.0-44.9, adult; M17.0 Bilateral primary osteoarthritis of knee; M19.90 Unspecified osteoarthritis, unspecified site; I11.0 Hypertensive heart disease with heart failure; I50.9 Heart failure, unspecified; K21.9 Gastro-esophageal reflux disease without esophagitis; E78.5 Hyperlipidemia, unspecified; G47.33 Obstructive sleep apnea (adult) (pediatric); J44.9 Chronic obstructive pulmonary disease, unspecified; I48.91 Unspecified atrial fibrillation; G89.4 Chronic pain syndrome; M10.9 Gout, unspecified; F44.9 Dissociative and conversion disorder, unspecified; D17.22 Benign lipomatous neoplasm of skin and subcutaneous tissue of left arm; N13.9 Obstructive and reflux uropathy, unspecified; Z87.891 Personal history of nicotine dependence; Z79.01 Long term (current) use of anticoagulants; Z79.1 Long term (current) use of non-steroidal anti-inflammatories (NSAID); Z79.899 Other long term (current) drug therapy
CPT/HCPCS: 99211

== ENCOUNTER 2019-07-31 13:35 | Inpatient (IN) | payer MEDICARE, OTHER ==
[2019-08-18] MEDS ORDERED: ceFAZolin 3 GM in SODIUM CHLORIDE 0.9% 100 ML IVPB ONE (05:00)
[2019-08-18] MEDS ORDERED: ONDANSETRON 4 MG/2 ML VIAL IVP ONE (05:45)
[2019-08-18] MEDS ORDERED: DEXAMETHASONE SOD PHOSPHATE 10 MG/ML 1 ML VIAL IV ONE (05:45)
[2019-08-18] MEDS ORDERED: MIDAZOLAM 2 MG/2 ML VIAL IV PRN (05:45)
[2019-08-18] MEDS ORDERED: PANTOPRAZOLE 40 MG/10 ML VIAL IV STA (07:34)
[2019-08-18] MEDS ORDERED: ENOXAPARIN 40 MG/0.4 ML SYRINGE SQ STA (07:34)
[2019-08-18] MEDS ORDERED: CHLORHEXIDINE GLUCONATE 15 ML CUP MUCOUS MEM ONE (07:34)
--- NOTE | 2019-08-18 07:37 | P.GSHP ---
History of Present Illness H&P Date: 08/18/19 DATE OF SERVICE: 08/18/2019 CHIEF COMPLAINT: Morbid obesity HISTORY OF PRESENT ILLNESS: Bandar Moreno is a 63-year-old male who comes with lifelong morbid obesity. He has developed hypertensive heart disease, hyperlipidemia, congestive heart failure and obstructive sleep apnea as a result of his morbid obesity. Now he is looking into permanent options for weight loss. He comes in after his EGD. He has history of multiple abdominal surgeries. No reports of active abdominal pain. At height of 6 feet 2 inches, his ideal body weight is 193 pounds. Highest weight of 338 pounds with BMI of 43.5. Today, he comes in 338 pounds from 337 pounds, 2 months ago. He has gained 1 pound in 2 months. His body mass index is 43.4. He is 145 pounds overweight. PAST MEDICAL HISTORY: 1. Morbid obesity due to excess calories 2. Body mass index of 43.5, initial 3. Osteoarthritis of the knees. 4. Osteoarthritis of the lower back. 5. Hypertensive heart disease. 6. Gastroesophageal reflux disease 7. Hyperlipidemia 8. Obstructive sleep apnea 9. Chronic obstructive pulmonary disease 10. Obstructive uropathy 11. Atrial fibrillation 12. Congestive heart failure 13. Chronic pain syndrome 14. Gout 15. Diverticulitis 16. Anxiety disorder 17. Hiatal hernia PAST SURGICAL HISTORY: 1. Colostomy creation with reversal 2. Incisional hernia repair 3. Pacemaker placement 4. Tonsillectomy 5. Cardiac ablation 6. Upper endoscopy HOME MEDICATIONS: ALLERGIES: Home Medications Medication Instructions Recorded Confirmed Tamsulosin HCl [Flomax] 0.4 mg PO BID 04/06/15 06/16/19 Apixaban [Eliquis] 5 mg PO BID 12/02/15 06/16/19 Finasteride 5 mg PO HS 04/14/16 06/16/19 Simvastatin 40 mg PO HS 04/14/16 06/16/19 Carvedilol [Coreg] 25 mg PO AC-BID 04/18/16 06/16/19 Sotalol HCl [Betapace] 120 mg PO BID 05/17/16 06/16/19 Albuterol Nebulized [Ventolin 2.5 mg INHALATION RT-QID PRN 09/29/16 06/16/19 Nebulized] Potassium Chloride ER [K-Dur 20] 20 meq PO DAILY 09/29/16 06/16/19 Albuterol Sulfate [Proair Hfa] 2 puff INHALATION RT-BID PRN 11/13/17 06/16/19 Vitamin A 10,000 unit PO DAILY@1200 11/13/17 06/16/19 HYDROcodone/APAP 10-325MG [[place] 1 tab PO BID PRN 01/07/18 06/16/19 10-325] tiZANidine [Zanaflex] 2 mg PO HS 01/07/18 06/16/19 Furosemide [Lasix] 40 mg PO DAILY 05/30/18 06/16/19 Sacubitril/Valsartan [Entresto 97 1 each PO BID 05/30/18 06/16/19 mg-103 mg Tablet] Gabapentin [Neurontin] 300 mg PO BID 05/21/19 06/16/19 Meloxicam [Mobic] 15 mg PO MOTUWETHFR 05/21/19 06/16/19 Zolpidem [Ambien] 5 mg PO HS PRN 05/21/19 06/16/19 Previous Rx's Medication Instructions Recorded Allopurinol [Zyloprim] 100 mg PO DAILY@1200 tab 11/16/17 Omeprazole 40 mg PO DAILY #90 capsule. 05/26/19 SOCIAL HISTORY: Past tobacco use. FAMILY HISTORY: No family history of ulcerative colitis disease or Crohn's disease. Family history of morbid obesity. No lupus in the family. No reports of stomach or esophageal cancer. REVIEW OF ORGAN SYSTEMS: CONSTITUTIONAL: At height of 6 feet 2 inches, his ideal body weight is 193 po unds. Highest weight of 338 pounds with BMI of 43.5. He comes in 337 pounds. His body mass index is 43.4. He is 144 pounds overweight. HEENT: Denies any active troubles with vision or hearing. ENDOCRINE: No diabetes. No hypothyroidism. CARDIOVASCULAR: Past reports of palpitations or heart attacks or chest pain. RESPIRATORY: Has daytime somnolence. Has asthma. GASTROINTESTINAL: Denies any bright red blood per rectum. No diarrhea. No constipation. Has new gastroesophageal reflux disease. MUSCULOSKELETAL: Has lower back pain and joint pain. Has osteoarthritis of the knees. History of bilateral lower extremity edema. NEURO: No headaches. No seizure disorders. PSYCH: Has depression. No suicidal ideation. Has anxiety. RHEUMATOLOGIC: No lupus. No rheumatoid arthritis. HEMATOLOGIC: Denies any abnormal bleeding or bruising. No personal history of DVTs. SKIN: No rash. No skin cancer. PHYSICAL EXAM: VITAL SIGNS: Height 6 foot 2 inches, weight 338 pounds. BMI 43.4 GENERAL: Well-developed in no acute distress. HEENT: No scleral icterus. Extraocular movements grossly intact. Hears conversational speech. No nasal drainage. NECK: Supple without lymphadenopathy. CHEST: Nonlabored respirations with equal bilateral excursions. CARDIOVASCULAR: Regular rate and regular rhythm. Distal 2+ pulses. ABDOMEN: Obese, soft, nontender, nondistended. MUSCULOSKELETAL: No clubbing, cyanosis. Gross strength 5/5 distal lower extremities. Large lipoma of 6-cm of left forearm without skin changes. NEURO: No focal or lateralizing signs. Cranial nerves 2 through 12 grossly within normal limits. PSYCH: Appropriate affect. Alert and oriented to person, place and time. SKIN: Good skin turgor. Well perfused. ASSESSMENT: 1. Morbid obesity due to excess calories 2. Body mass index of 43.5, initial 3. Osteoarthritis of the knees. 4. Osteoarthritis of the lower back. 5. Hypertensive heart disease. 6. Gastroesophageal reflux disease 7. Hyperlipidemia 8. Obstructive sleep apnea 9. Chronic obstructive pulmonary disease 10. Obstructive uropathy 11. Atrial fibrillation 12. Congestive heart failure 13. Chronic pain syndrome 14. Gout 15. Diverticulitis 16. Anxiety disorder 17. Lipoma of the left arm 18. Chronic pain PLAN: 1. Bariatric options between a sleeve, band and a Tate-en-Y gastric bypass were reviewed in detail. The patient elected for a sleeve gastrectomy. Robotic assisted approach described. 2. The [place] [facility] Data was also reviewed with benefits and risks as described. 3. An 8 page second-generation bariatric consent form was reviewed in detail including potential of bleeding, infection, leaks, adequate weight loss, nutritional deficiencies which the patient demonstrated understanding of the risks. 4. A 2 week high-protein low caloric 800 kcal diet described to address hepatomegaly. 5. Preoperative labs including complete metabolic panel and CBC with type and screen recommended. 6. DVT prophylaxis per [place] [facility]. 7. Antibiotic prophylaxis. 8. Inpatient hospitalization anticipated for more than 2 nights. 9. All questions and concerns were addressed with the patient. 10. He is high risk for david-operative complications secondary to moderate COPD and atrial fibrillation. Past Medical History Past Medical History: Atrial Flutter, Asthma, Heart Failure, COPD, GERD/Reflux, Hyperlipidemia, Hypertension, Osteoarthritis (OA), Prostate Disorder, Sleep Apnea/CPAP/BIPAP Additional Past Medical History / Comment(s): GOUT,scoliosis, ddd, back pain, neck problems-PINCHED NERVE, lumbar spine, uses CPAP, has AICD-saw electro winning operator recently for EKG History of Any Multi-Drug Resistant Organisms: None Reported Date of last positivie culture/infection: 04/26/2016 MDRO Source:: Bilat Leg Past Surgical History: AICD, Bowel Resection, Cardiac Ablation, Orthopedic Surgery, Pacemaker, Tonsillectomy Additional Past Surgical History / Comment(s): CRISELDA AND PLATE IN ankle(left), vasectomy, ruptured bowel- colon resection - colostomy WITH reversal April 2016, COLONOSCOPY, EGD, [facility] AICD, serial #[id number] Past Anesthesia/Blood Transfusion Reactions: No Reported Reaction Additional Past Anesthesia/Blood Transfusion Reaction / Comment(s): HAS HAD TRANSFUSION WITH NO PROBLEMS Type of Cardiac Device: Permanent Pacemaker, AICD Device Placement Date:: February 2018 Smoking Status: Former smoker - Past Family History Father Family Medical History: Cancer, Prostate Disorder Additional Family Medical History / Comment(s): PROSTATE AND LUNG CANCER, IRREGULAR HEART BEAT Mother Family Medical History: Diabetes Mellitus, Hypertension, Osteoarthritis (OA) Medications and Allergies Home Medications Medication Instructions Recorded Confirmed Type Tamsulosin HCl [Flomax] 0.4 mg PO BID 04/06/15 08/13/19 History Apixaban [Eliquis] 5 mg PO BID 12/02/15 08/13/19 History Finasteride 5 mg PO HS 04/14/16 08/13/19 History Simvastatin 40 mg PO HS 04/14/16 08/13/19 History Carvedilol [Coreg] 25 mg PO AC-BID 04/18/16 08/13/19 History Sotalol HCl [Betapace] 120 mg PO BID 05/17/16 08/13/19 History Albuterol Nebulized [Ventolin 2.5 mg INHALATION RT-QID PRN 09/29/16 08/13/19 History Nebulized] Potassium Chloride ER [K-Dur 20] 20 meq PO DAILY 09/29/16 08/13/19 History Albuterol Sulfate [Proair Hfa] 2 puff INHALATION RT-BID PRN 11/13/17 08/13/19 History Allopurinol [Zyloprim] 100 mg PO DAILY@1200 tab 11/16/17 08/13/19 Rx HYDROcodone/APAP 10-325MG [[place] 1 tab PO BID PRN 01/07/18 08/13/19 History 10-325] tiZANidine [Zanaflex] 2 mg PO BID 01/07/18 08/13/19 History Furosemide [Lasix] 40 mg PO DAILY 05/30/18 08/13/19 History Sacubitril/Valsartan [Entresto 97 1 each PO BID 05/30/18 08/13/19 History mg-103 mg Tablet] Gabapentin [Neurontin] 300 mg PO TID 05/21/19 08/13/19 History Meloxicam [Mobic] 15 mg PO MOWEFR 05/21/19 08/13/19 History Zolpidem [Ambien] 5 mg PO HS PRN 05/21/19 08/13/19 History Omeprazole 40 mg PO DAILY #90 capsule. 05/26/19 08/13/19 Rx Allergies Allergy/AdvReac Type Severity Reaction Status Date / Time No Known Allergies Allergy Verified 08/13/19 16:46
[2019-08-18] MEDS: LACTATED RINGERS 1,000 ML IV SCH (09:46)
[2019-08-18] MEDS ORDERED: KETOROLAC 30 MG/ML 1 ML VIAL ONE (10:25)
[2019-08-18] MEDS ORDERED: PROPOFOL 10 MG/ML 20 ML VIAL IV ONE (10:25)
[2019-08-18] MEDS ORDERED: ePHEDrine SULFATE/0.9% NACL/PF 50 MG/5 ML SYRINGE IV ONE (10:25)
[2019-08-18] MEDS ORDERED: WATER FOR INJECTION, STERILE 10 ML VIAL IV ONE (10:25)
[2019-08-18] MEDS ORDERED: NEOSTIGMINE 1 MG/ML 10 ML VIAL ONE (10:25)
[2019-08-18] MEDS ORDERED: fentaNYL (PF) 50 MCG/ML 2 ML AMP ONE (10:25)
[2019-08-18] MEDS ORDERED: GLYCOPYRROLATE 0.2 MG/ML 2 ML VIAL ONE (10:25)
[2019-08-18] MEDS ORDERED: MIDAZOLAM 2 MG/2 ML VIAL ONE (10:25)
[2019-08-18] MEDS ORDERED: ROCURONIUM BROMIDE 10 MG/ML 10 ML VIAL IV ONE (10:25)
[2019-08-18] MEDS ORDERED: HYDROmorphone (PF) 1 MG/ML ONE (10:25)
[2019-08-18] MEDS ORDERED: SUCCINYLCHOLINE CHLORIDE 100 MG/5 ML SYR IV ONE (10:25)
[2019-08-18] MEDS ORDERED: PHENYLEPHRINE-0.9% NACL SYG 1 MG/10 ML SYRINGE ONE (10:25)
[2019-08-18] MEDS ORDERED: LIDOCAINE 1%-EPI 1:100,000 20 ML VIAL SQ ONE (11:14)
[2019-08-18] MEDS ORDERED: LACTATED RINGERS 1,000 ML IV ONE (11:15)
[2019-08-18] MEDS ORDERED: HYDROcodone/APAP 15 ML SOLUTION PO PRN (12:38)
[2019-08-18] MEDS ORDERED: HYOSCYAMINE ORAL DROPS 1.875 MG/15 ML BOTTLE PO PRN (12:38)
[2019-08-18] MEDS ORDERED: NALOXONE 0.4 MG/ML 1 ML VIAL IV PRN ×2 (12:38→12:44)
[2019-08-18] MEDS ORDERED: diphenhydrAMINE 50 MG/ML 1 ML VIAL IVP PRN (12:38)
--- NOTE | 2019-08-18 12:38 | P.OP ---
Date of Procedure: 08/18/19 Description of Procedure: SURGEON: SRAVANI MURRAY MD PREOPERATIVE DIAGNOSES: 1. Morbid obesity due to excess calories 2. Body mass index of 43.5, initial 3. Osteoarthritis of the knees. 4. Osteoarthritis of the lower back. 5. Hypertensive heart disease. 6. Gastroesophageal reflux disease 7. Hyperlipidemia 8. Obstructive sleep apnea 9. Chronic obstructive pulmonary disease 10. Obstructive uropathy 11. Atrial fibrillation 12. Congestive heart failure 13. Chronic pain syndrome 14. Gout 15. Diverticulitis 16. Anxiety disorder 17. Lipoma of the left arm 18. Chronic pain POSTOPERATIVE DIAGNOSES: 1. Morbid obesity due to excess calories 2. Body mass index of 43.5, initial 3. Osteoarthritis of the knees. 4. Osteoarthritis of the lower back. 5. Hypertensive heart disease. 6. Gastroesophageal reflux disease 7. Hyperlipidemia 8. Obstructive sleep apnea 9. Chronic obstructive pulmonary disease 10. Obstructive uropathy 11. Atrial fibrillation 12. Congestive heart failure 13. Chronic pain syndrome 14. Gout 15. Diverticulitis 16. Anxiety disorder 17. Lipoma of the left arm 18. Chronic pain 19. Peritoneal adhesions, lower abdomen OPERATION: 1. Robotic assisted daVinci Xi laparoscopic sleeve gastrectomy with 40-Malian bougie, multiport. 2. Intraoperative esophagogastroduodenoscopy. ANESTHESIA: Gen. local anesthetic ESTIMATED BLOOD LOSS: 5 mL SPECIMENS REMOVED: Sleeve gastrectomy COMPLICATIONS: None. INDICATIONS: Bandar Moreno is a 63-year-old male who comes with lifelong morbid obesity. He has developed hypertensive heart disease, hyperlipidemia, congestive heart failure and obstructive sleep apnea as a result of his morbid obesity. Now he is looking into permanent options for weight loss. He comes in after his EGD. He has history of multiple abdominal surgeries. No reports of active abdominal pain. At height of 6 feet 2 inches, his ideal body weight is 193 pounds. Highest weight of 338 pounds with BMI of 43.5. Today, he comes in 319 from 338 pounds, 2 months ago. He has lost 19 pounds in 2 months. His body mass index is 41.1. He is 126 pounds overweight. All surgical options for morbid obesity had been described using the [place] [facility] comorbidity resolution including complication ri sk score. A second-generation bariatric consent form was described in detail including the possibility of protein malnutrition, leaks, gastric stricture, venous thrombosis, gastroesophageal reflux disease, need for further surgery for which he demonstrated understanding. Benefits and risks of the procedure were described at length. Informed consent was obtained. DESCRIPTION: The patient was brought into the operating room theater. Preoperatively he had received Lovenox subcutaneously for DVT prophylaxis. Additionally he had Peridex oral solution as an oral decontaminant. After general induction, the abdomen was prepped and draped in standard sterile fashion. An Ioban draping was placed along the abdomen. Pierce catheter was placed. A robotic da Karely Xi system was prepped and primed. At 15 cm from the xiphoid, proposed port sites were marked with indelible marker along the anterior axillary line bilaterally, mid axillary line bilaterally with each ports were marked 10 to 15 cm from each other. The certified medical assistant port was marked along the left lateral abdominal wall. The robotic stapler port was marked for the right midclavicular line. A 5 mm 0 degrees laparoscopic trocar entry was performed along the left upper quadrant. The abdomen was insufflated to 15 mmHg pressure he tolerated well. Diagnostic laparoscopy demonstrated no injury to bowel, viscera, or mesentery. The liver surface was unremarkable without evidence of hepatomegaly or fatty liver disease. No injury had occurred to the small bowel or viscera. Along the hiatus no hiatal hernia was found. He had moderate intra-abdominal peritoneal adhesions of the lower abdomen from previous multiple abdominal surgerires. A 8 mm port was placed along the right upper abdominal wall after exchanging the 5 mm port. A separate 8 mm port was placed along the left lateral abdominal wall. Please note that the ports were placed at least 20 cm away from the target anatomy. Care was taken to check each robotic arms were safely away from collision with the bed or the patient. At the epigastrium, a medium sized Antoinette liver retractor was placed under direct visualization with the Iron Chaperon placed under the right shoulder of the patient. Next, 12-mm robot stapler port was placed along the right upper quadrant. The camera 8-mm port was maintained along the epigastrium. The patient was repositioned in reverse Trendelenburg position at 16-degrees after lowering the bed. The robot was docked along the left side of the patient. Using a grasper for arm 4, a veseel sealer for arm 3, including grasper for arm 1, the robotic system was docked and primed as described. Instruments were interchanged by the certified medical assistant for stapler loads. The camera was placed at 30-degrees down. I had sat at the console. The pylorus was identified and 6 cm proximally along the greater curvature of the stomach, the short gastrics were mobilized upwards to the angle of His using a vessel sealer. Hemostasis was excellent during this portion of the procedure. Next, the upper pole of the stomach was adherent to the left naye, which was gently dissected free using atraumatic grasper. The nursing labor trainer placed a 40-Malian blunted tip bougie into the stomach. Robotic stapler green loads 60 mm x 2 followed by blue 60 mm x 5 were used to create the sleeve. Initial firing was across the antrum of the stomach towards the angle of His. The staple line was completely hemostatic and linear without corkscrewing. Hemostasis was excellent. The space from the angularis incisura of the sleeve was approximately 4 cm. I then went to the head of the bed to perform the intraoperative esophagogastroduodenoscopy leak test. The upper pole of the stomach was bathed using normal saline solution. The scope was withdrawn with careful inspection along the staple line for which no leaks were found along the entire length. Additionally, the sleeve was completely hemostatic without any encroachment along the angularis incisura. Its topology was a soft "J". No stricture was encountered upon placement of the scope. The GI tract was desufflated. The patient tolerated this portion of the procedure well. The scope was completely withdrawn. The robot was undocked. I then rescrubbed into case, whereby the irrigation fluid was aspirated from the abdominal cavity. Tisseel fibrin sealant was placed along the entire staple length. Once dried the Antoinette liver retractor was removed. Attention was now brought to removal of the specimen. The distal end of the sleeve gastrectomy specimen was brought out through the 12 mm port at the left upper quadrant. The specimen was gently removed en total, corresponding to 20.5 cm x 5.5 cm sleeve gastrectomy specimen. No contamination had occurred during this process. All instruments and pneumoperitoneum including irrigation fluid was removed from the abdominal cavity. The 12 mm port site was irrigated with warm normal saline solution and diluted hydron peroxide. The 12-mm port site was reapproximated using 0 Vicryl and Blanco-Denise of the left upper quadrant. The final incisions were closed using subcuticular interrupted suture of 4-0 Monocryl. Dermabond was applied to the skin once the skin had been cleansed. OptiFoam dressing was placed along the stomach extraction site. At the end of the procedure, needle, sponge, and instrument count was verified correct by the surgical processor. The patient was taken to the postanesthesia care unit in stable condition. He had tolerated the procedure well. Intraoperative films and findings were reviewed with the patient's family. FINDINGS: 1. Negative intraoperative esophagogastrojejunoscopy leak test. 2. No large hiatus hernia. 3. Total of 5 staplers used including 2 - 60 mm green and 5 - 60 mm blue robot ale used to create the gastric sleeve. 4. Sleeve gastrectomy 30 x 4 cm 5. Console time 35 minutes.
[2019-08-18] MEDS ORDERED: ALBUTEROL NEBULIZED 2.5 MG/3 ML INHALATION PRN (12:41)
[2019-08-18] MEDS ORDERED: HYDROcodone/APAP 10-325MG 1 EACH TAB PO PRN (12:41)
[2019-08-18] MEDS ORDERED: ZOLPIDEM 5 MG TAB PO PRN (12:41)
[2019-08-18] MEDS ORDERED: DEXAMETHASONE SOD PHOSPHATE 10 MG/ML 1 ML VIAL IV PRN (12:43)
[2019-08-18] MEDS ORDERED: ONDANSETRON 4 MG/2 ML VIAL IVP PRN (12:44)
[2019-08-18] MEDS: HYDROmorphone 0.5 MG/0.5 ML SYRINGE IVP PRN ×4 (12:50→13:18)
[2019-08-18] MEDS: HYDROmorphone PCA 10 MG/50 ML BAG IV PRN (14:41)
[2019-08-18] MEDS: ALBUTEROL NEBULIZED 2.5 MG/3 ML INHALATION SCH ×2 (15:41→20:12)
[2019-08-18] MEDS: 0.9% NACL WITH KCL 20 MEQ/L 1,000 ML IV SCH ×2 (17:54→23:54)
[2019-08-18] MEDS: GABAPENTIN 300 MG CAP PO SCH ×2 (17:57→20:40)
[2019-08-18] MEDS: CARVEDILOL 12.5 MG TAB PO SCH (17:57)
[2019-08-18] MEDS: SIMETHICONE 40 MG/0.6 ML DROPS 2,000 MG/30 ML BOTTLE PO SCH ×2 (17:58→23:52)
[2019-08-18] MEDS ORDERED: ONDANSETRON 4 MG/2 ML VIAL IVP SCH (18:00)
[2019-08-18] MEDS: DEXAMETHASONE SOD PHOSPHATE 4 MG/ML 1 ML VIAL IV SCH ×2 (18:03→23:51)
[2019-08-18] MEDS: ceFAZolin 3 GM in SODIUM CHLORIDE 0.9% 100 ML IVPB SCH (20:39)
[2019-08-18] MEDS: SACUBITRIL/VALSARTAN 97 MG-103 MG TABLET PO SCH (20:40)
[2019-08-18] MEDS: TAMSULOSIN 0.4 MG CAP.ER.24H PO SCH (20:40)
[2019-08-18] MEDS: SOTALOL 120 MG TAB PO SCH (20:40)
[2019-08-18] MEDS: FINASTERIDE 5 MG TAB PO SCH (20:41)
[2019-08-18] MEDS: ENOXAPARIN 40 MG/0.4 ML SYRINGE SQ SCH (23:54)
[2019-08-19] MEDS: ceFAZolin 3 GM in SODIUM CHLORIDE 0.9% 100 ML IVPB SCH (02:12)
[2019-08-19] MEDS: 0.9% NACL WITH KCL 20 MEQ/L 1,000 ML IV SCH (02:14)
[2019-08-19] MEDS: DEXAMETHASONE SOD PHOSPHATE 4 MG/ML 1 ML VIAL IV SCH ×4 (05:25→23:06)
[2019-08-19] MEDS: SIMETHICONE 40 MG/0.6 ML DROPS 2,000 MG/30 ML BOTTLE PO SCH ×4 (05:25→23:06)
[2019-08-19] MEDS: LACTATED RINGERS 1,000 ML IV SCH (05:27)
[2019-08-19] MEDS: ALBUTEROL NEBULIZED 2.5 MG/3 ML INHALATION SCH ×4 (07:17→21:41)
[2019-08-19 07:18] LABS: Basophils % (A) 0 %; Eosinophils % (A) 0 %; HCT 39.1 % (39.0-53.0); HGB 12.7 gm/dL (13.0-17.5); Lymphocytes # (A) 0.6 k/uL (1.0-4.8); Lymphocytes % (A) 5 %; MCH 31.2 pg (25.0-35.0); MCHC 32.5 g/dL (31.0-37.0); MCV 95.8 fL (80.0-100.0); Mean Platelet Volume 6.5; Monocytes # (A) 0.3 k/uL (0-1.0); Monocytes % (A) 3 %; Neutrophils # (A) 9.8 k/uL (1.3-7.7); Neutrophils % (A) 91 %; Platelet Count 199 k/uL (150-450); RBC 4.09 m/uL (4.30-5.90); RDW 13.8 % (11.5-15.5); WBC 10.7 k/uL (3.8-10.6)
[2019-08-19 07:30] LABS: African American GFR (CKD) >90 (>60 ml/min/1.73 sqM); Anion Gap 7 mmol/L; Blood Urea Nitrogen 21 mg/dL (9-20); Calcium 8.4 mg/dL (8.4-10.2); Carbon Dioxide 27 mmol/L (22-30); Chloride 104 mmol/L (98-107); Non-African American GFR(CKD) 85 (>60 ml/min/1.73 sqM); Phosphorus 3.8 mg/dL (2.5-4.5); Potassium 4.8 mmol/L (3.5-5.1); Sodium 138 mmol/L (137-145)
[2019-08-19] MEDS: PANTOPRAZOLE 40 MG/10 ML VIAL IV SCH (09:04)
[2019-08-19] MEDS: SOTALOL 120 MG TAB PO SCH ×2 (09:05→20:24)
[2019-08-19] MEDS: GABAPENTIN 300 MG CAP PO SCH ×3 (09:05→20:25)
[2019-08-19] MEDS: SACUBITRIL/VALSARTAN 97 MG-103 MG TABLET PO SCH ×2 (09:05→20:24)
[2019-08-19] MEDS: FUROSEMIDE 40 MG TAB PO SCH (09:05)
[2019-08-19] MEDS: CARVEDILOL 12.5 MG TAB PO SCH ×2 (09:05→17:45)
[2019-08-19] MEDS: TAMSULOSIN 0.4 MG CAP.ER.24H PO SCH ×2 (09:06→20:25)
--- NOTE | 2019-08-19 09:12 | FL ---
EXAMINATION TYPE: FL UGI DATE OF EXAM: 08/19/2019 CLINICAL HISTORY: Status post gastric sleeve TECHNIQUE: Limited esophagram is performed 40 mL of Isovue-370. A total of 59 seconds of fluoroscopi c time was utilized during procedure. FINDINGS: The patient swallowed contrast without difficulty or delay. Esophageal peristalsis and mo tility are within normal limits. There is mildly delayed flow of contrast along the diaphragmatic hia tus into the stomach, there is no evidence of contrast extravasation to suggest leak. No persistent h iatal hernia is seen. Patient remains asymptomatic. IMPRESSION: No evidence of leak significant obstruction status post Chace fundoplication surgery ear lier today. Mild delay at the gastroesophageal junction likely from postoperative edema.
[2019-08-19] MEDS: 1: MVI, ADULT NO.4 WITH VIT K 10 ML, THIAMINE 100 MG, FOLIC ACID 1 MG, POTASSIUM CHLORID IV SCH ×12 (09:54→19:05)
--- NOTE | 2019-08-19 10:42 | CDI ---
Documentation Clarification Form Date: 08/19/2019 10:24:47 AM From: Payal Case RN CCDS Admit Date: 08/18/2019 8:59:00 AM Patient Name: Bandar Moreno Visit Number: [id number] Discharge Date: ATTENTION: The Clinical Documentation Specialists (CDI) and [facility] Coding Staff appreciate your assistance in clarifying documentation. Please respond to the clarification below the line at the bottom and electronically sign. The CDI & [facility] Coding staff will review the response and follow-up if needed. Please note: Queries are made part of the Legal Health Record. If you have any questions, please contact the author of this message via ITS. Dr. Courtney Chen Congestive Heart Failure is documented in your H & P 08/18/2019 History/Risk Factors: 63-year-old male presents to [facility] for elective bariatric surgery. Medical history of Hypertensive Heart Disease; Congestive Heart Failure. Atrial Fibrillation. Clinical Indicators: VS/Pulse OX: 08/19/2019 09:13 128/74 84 97.0 18 93% ra Echocardiogram Results: 09/02/18 - Moderate concentric left ventricular hypertrophy. Left ventricular systolic function is mild -moderately impaired with an EF between 40-45%. Treatment: Coreg 25mg po bid , Lasix po 40mg daily; In your professional opinion, can you please clarify the acuity and type of CHF if known? * Chronic Systolic Heart Failure * Chronic Systolic & Diastolic Heart Failure: * Unable to Determine * Other, please specify (Last Revision: January 2018) Chronic Systolic & Diastolic Heart Failure: * KM 08/19/18 13:20 MTDD
[2019-08-19 11:19] VITALS: BMI 41.1
[2019-08-19] MEDS ORDERED: ALLOPURINOL 100 MG TAB PO SCH (12:00)
--- NOTE | 2019-08-19 13:20 | P.PN ---
<Yenny Marie Deb - Last Filed: 08/19/19 13:20> Subjective Progress Note Date: 08/19/19 CHIEF COMPLAINT: Morbid obesity HISTORY OF PRESENT ILLNESS: 63-year-old male who is status post robotic-assisted laparoscopic sleeve gastrectomy. Postoperative day #1. Esophagram completed postoperatively negative for leak. Mild delay at gastroesophageal junction. Patient has been tolerating clear liquids. Denies nausea or vomiting. Pain is currently controlled. He is utilizing Dilaudid VOICE COACH pump. Vital signs stable. He is afebrile. PHYSICAL EXAM: VITAL SIGNS: Reviewed GENERAL: Well-developed in no acute distress. HEENT: No sclera icterus. Extraocular movements grossly intact. Moist buccal mucosa. Head is atraumatic, normocephalic. Hears conversational speech. No nasal drainage. NECK: Supple without lymphadenopathy. CHEST: Non-labored respirations and equal bilateral excursions. CARDIOVASCULAR: Regular rate with regular rhythm. Palpable 2+ radial pulses. ABDOMEN: Obese. Soft. Nondistended. Appropriate surgical tenderness. Incisions clean dry without drainage or signs of infection. Abdominal binder present. MUSCULOSKELETAL: No clubbing, cyanosis or edema. NEUROLOGIC: No focal or lateralizing signs. Cranial nerves II through XII g rossly intact. PSYCH: Appropriate affect. Alert and oriented to person, place and time. SKIN: Well perfused. Good skin turgor. ASSESSMENT: 1. Morbid obesity due to excess calories 2. Body mass index of 43.5, initial 3. Osteoarthritis of the knees. 4. Osteoarthritis of the lower back. 5. Hypertensive heart disease. 6. Gastroesophageal reflux disease 7. Hyperlipidemia 8. Obstructive sleep apnea 9. Chronic obstructive pulmonary disease 10. Obstructive uropathy 11. Atrial fibrillation 12. Congestive heart failure 13. Chronic pain syndrome 14. Gout 15. Diverticulitis 16. Anxiety disorder 17. Lipoma of the left arm 18. Chronic pain PLAN: 1. Continue bariatric clear liquid diet. No straws or carbonated beverages. 2. Pain control. Avoid use of IV Dilaudid today if patient's pain is tolerable. [place] PRN 3. Incentive spirometry 4. Increase activity as tolerated 5. Continue to hold Eliquis. Will resume Sunday 6. Pierce catheter DC this morning. Await void. Notify provider if patient unable to void 7. Anticipate discharge home tomorrow. Nurse practitioner note has been reviewed by physician. Signing provider agrees with the documented findings, assessment, and plan of care. Objective - Vital Signs Vital signs: Vital Signs Temp 97.8 F 08/19/19 07:00 Pulse 76 08/19/19 08:10 Resp 17 08/19/19 08:10 BP 160/73 08/19/19 07:00 Pulse Ox 93 L 08/19/19 10:00 Intake & Output 08/18/19 08/19/19 08/19/19 18:59 06:59 18:59 Intake Total 1500 200 Output Total 80 400 550 Balance 1420 -400 -350 Weight 145.15 kg Intake: IV 1500 Oral 200 Output: Urine 75 400 550 Estimated Blood Loss 5 Other: Voiding Method Indwelling Catheter Indwelling Catheter Indwelling Catheter - Labs CBC & Chem 7: 08/19/19 06:37 08/19/19 06:37 Labs: Abnormal Lab Results - Last 24 Hours (Table) 08/19/19 08/19/19 Range/Units 06:37 06:37 WBC 10.7 H (3.8-10.6) k/uL RBC 4.09 L (4.30-5.90) m/uL Hgb 12.7 L (13.0-17.5) gm/dL Neutrophils # 9.8 H (1.3-7.7) k/uL Lymphocytes # 0.6 L (1.0-4.8) k/uL BUN 21 H (9-20) mg/dL Assessment and Plan (1) Body mass index (BMI) of 40.1-44.9 in adult Current Visit: Yes Status: Acute Code(s): Z68.41 - BODY MASS INDEX (BMI) 40.0-44.9, ADULT SNOMED Code(s): 891176950 (2) Morbid obesity due to excess calories Current Visit: Yes Status: Chronic Code(s): E66.01 - MORBID (SEVERE) OBESITY DUE TO EXCESS CALORIES SNOMED Code(s): 731281378 <Courtney Chen - Last Filed: 08/19/19 23:39> Subjective Clinically, he is doing remarkably well. He is high risk for re-admission. Discharge in 24 hours. Objective - Vital Signs Vital signs: Vital Signs Temp 98 F 08/19/19 20:00 Pulse 60 10/29/19 21:53 Resp 18 08/19/19 20:00 BP 135/70 08/19/19 20:00 Pulse Ox 95 08/19/19 20:00 Intake & Output 08/19/19 08/19/19 08/20/19 06:59 18:59 06:59 Intake Total 600 Output Total 400 2009 Balance -400 -1410 Weight 145.15 kg Intake: Oral 600 Output: Urine 400 2009 Other: Voiding Method Indwelling Catheter Indwelling Catheter Toilet Urinal - Labs CBC & Chem 7: 08/19/19 06:37 08/19/19 06:37 Labs: Abnormal Lab Results - Last 24 Hours (Table) 08/19/19 08/19/19 Range/Units 06:37 06:37 WBC 10.7 H (3.8-10.6) k/uL RBC 4.09 L (4.30-5.90) m/uL Hgb 12.7 L (13.0-17.5) gm/dL Neutrophils # 9.8 H (1.3-7.7) k/uL Lymphocytes # 0.6 L (1.0-4.8) k/uL BUN 21 H (9-20) mg/dL
[2019-08-19] MEDS: HYDROmorphone PCA 10 MG/50 ML BAG IV PRN (19:34)
[2019-08-19] MEDS: FINASTERIDE 5 MG TAB PO SCH (20:24)
[2019-08-19] MEDS: ENOXAPARIN 40 MG/0.4 ML SYRINGE SQ SCH (23:06)
[2019-08-20] MEDS: SIMETHICONE 40 MG/0.6 ML DROPS 2,000 MG/30 ML BOTTLE PO SCH (05:11)
[2019-08-20] MEDS: DEXAMETHASONE SOD PHOSPHATE 4 MG/ML 1 ML VIAL IV SCH (05:11)
[2019-08-20] MEDS: 1: MVI, ADULT NO.4 WITH VIT K 10 ML, THIAMINE 100 MG, FOLIC ACID 1 MG, POTASSIUM CHLORID IV SCH ×6 (05:13)
[2019-08-20 07:27] VITALS: BP 136/79; RESP 18; TEMP 97.7
[2019-08-20] MEDS ORDERED: BISACODYL 5 MG TABLET.DR PO PRN (08:00)
[2019-08-20] MEDS: PANTOPRAZOLE 40 MG/10 ML VIAL IV SCH (08:14)
[2019-08-20] MEDS: TAMSULOSIN 0.4 MG CAP.ER.24H PO SCH (08:15)
[2019-08-20] MEDS: GABAPENTIN 300 MG CAP PO SCH (08:15)
[2019-08-20] MEDS: CARVEDILOL 12.5 MG TAB PO SCH (08:15)
[2019-08-20] MEDS: FUROSEMIDE 40 MG TAB PO SCH (08:15)
[2019-08-20] MEDS: SOTALOL 120 MG TAB PO SCH (08:16)
[2019-08-20] MEDS: SACUBITRIL/VALSARTAN 97 MG-103 MG TABLET PO SCH (08:17)
[2019-08-20] MEDS: ALBUTEROL NEBULIZED 2.5 MG/3 ML INHALATION SCH ×3 (08:25→15:29)
[2019-08-20 11:56] VITALS: PULSE 60
--- NOTE | 2019-08-20 13:50 | P.DS ---
<Yenny Marie - Last Filed: 08/20/19 13:48> Providers Expected date of discharge: 08/20/19 - Discharge Diagnosis(es) (1) Body mass index (BMI) of 40.1-44.9 in adult Status: Acute (2) Morbid obesity due to excess calories Status: Chronic Hospital Course: 63-year-old male who is status post robotic-assisted laparoscopic sleeve gastrectomy with Dr. Chen. Esophagram completed postoperatively negative for leak. Mild delay at gastroesophageal junction. Patient has been tolerating clear liquids. Denies nausea or vomiting. Pain is controlled with oral medications. Vital signs have been stable. He is stable for discharge home today. Please see EMR for further hospital course details. Discharge Diagnosis: 1. Morbid obesity due to excess calories 2. Body mass index of 43.5, initial 3. Osteoarthritis of the knees. 4. Osteoarthritis of the lower back. 5. Hypertensive heart disease. 6. Gastroesophageal reflux disease 7. Hyperlipidemia 8. Obstructive sleep apnea 9. Chronic obstructive pulmonary disease 10. Obstructive uropathy 11. Atrial fibrillation 12. Congestive heart failure 13. Chronic pain syndrome 14. Gout 15. Diverticulitis 16. Anxiety disorder 17. Lipoma of the left arm 18. Chronic pain Nurse practitioner note has been reviewed by physician. Signing provider agrees with the documented findings, assessment, and plan of care. Plan - Discharge Summary Discharge Rx Participant: Yes New Discharge Prescriptions: New Bisacodyl [Dulcolax] 5 mg PO DAILY PRN #10 tablet. PRN Reason: Constipation Simethicone 40 mg/0.6 ml Drops [Mylicon Drops] 40 mg PO PCHS PRN #30 ml PRN Reason: Gas Ondansetron Odt [Zofran Odt] 4 mg PO Q8HR PRN #9 tab PRN Reason: Nausea Omeprazole 40 mg PO DAILY #30 capsule. Continue Tamsulosin HCl [Flomax] 0.4 mg PO BID Simvastatin 40 mg PO HS Finasteride 5 mg PO HS Carvedilol [Coreg] 25 mg PO AC-BID Sotalol HCl [Betapace] 120 mg PO BID Potassium Chloride ER [K-Dur 20] 20 meq PO DAILY Albuterol Nebulized [Ventolin Nebulized] 2.5 mg INHALATION RT-QID PRN PRN Reason: Shortness Of Breath Albuterol Sulfate [Proair Hfa] 2 puff INHALATION RT-BID PRN PRN Reason: Shortness Of Breath Allopurinol [Zyloprim] 100 mg PO DAILY@1200 tab tiZANidine [Zanaflex] 2 mg PO BID HYDROcodone/APAP 10-325MG [Jamison 10-325] 1 tab PO BID PRN PRN Reason: Pain Sacubitril/Valsartan [Entresto 97 mg-103 mg Tablet] 1 each PO BID Furosemide [Lasix] 40 mg PO DAILY Zolpidem [Ambien] 5 mg PO HS PRN PRN Reason: Insomnia Gabapentin [Neurontin] 300 mg PO TID Omeprazole 40 mg PO DAILY #90 capsule.dr Discontinued Apixaban [Eliquis] 5 mg PO BID Meloxicam [Mobic] 15 mg PO MOWEFR Discharge Medication List Tamsulosin HCl [Flomax] 0.4 mg PO BID 04/06/15 [History] Finasteride 5 mg PO HS 04/14/16 [History] Simvastatin 40 mg PO HS 04/14/16 [History] Carvedilol [Coreg] 25 mg PO AC-BID 04/18/16 [History] Sotalol HCl [Betapace] 120 mg PO BID 05/17/16 [History] Albuterol Nebulized [Ventolin Nebulized] 2.5 mg INHALATION RT-QID PRN 09/29/16 [History] Potassium Chloride ER [K-Dur 20] 20 meq PO DAILY 09/29/16 [History] Albuterol Sulfate [Proair Hfa] 2 puff INHALATION RT-BID PRN 11/13/17 [History] Allopurinol [Zyloprim] 100 mg PO DAILY@1200 tab 11/16/17 [Rx] HYDROcodone/APAP 10-325MG [Jamison 10-325] 1 tab PO BID PRN 01/07/18 [History] tiZANidine [Zanaflex] 2 mg PO BID 01/07/18 [History] Furosemide [Lasix] 40 mg PO DAILY 05/30/18 [History] Sacubitril/Valsartan [Entresto 97 mg-103 mg Tablet] 1 each PO BID 05/30/18 [History] Gabapentin [Neurontin] 300 mg PO TID 05/21/19 [History] Zolpidem [Ambien] 5 mg PO HS PRN 05/21/19 [History] Omeprazole 40 mg PO DAILY #90 capsule. 05/26/19 [Rx] Bisacodyl [Dulcolax] 5 mg PO DAILY PRN #10 tablet. 08/20/19 [Rx] Omeprazole 40 mg PO DAILY #30 capsule. 08/20/19 [Rx] Ondansetron Odt [Zofran Odt] 4 mg PO Q8HR PRN #9 tab 08/20/19 [Rx] Simethicone 40 mg/0.6 ml Drops [Mylicon Drops] 40 mg PO PCHS PRN #30 ml 08/20/19 [Rx] Follow up [facility]ment(s[place]Ref[place] 08/22/19 10:00 am Patient Instructions/Handouts: Nutrition after Bariatric Surgery (GEN), Laparoscopic Sleeve Gastrectomy (GEN) Activity/Diet/Wound Care/Special Instructions: DO NOT START ELIQUIS/BLOOD THINNER UNTIL SUNDAY, August. Please start stage II bariatric diet/protein shakes, August 21. No lifting over 4 pounds in 4 weeks, September 15. May shower tomorrow. No soaking in bath tubs for 2 weeks, September 01. Please notify your surgeon if you develop nausea and vomiting including new onset of abdominal pain. Continue to use incentive spirometry to prevent pneumonias. Please continue to ambulate at home to prevent blood clots in legs. Please crush, open, or cut tablets larger than the size of tic-tac Discharge Disposition: HOME SELF-CARE <Courtney Chen - Last Filed: 08/22/19 18:32> Providers Date of admission: 08/18/19 08:59 Attending physician: Courtney Chen Primary care physician: Elijah Weiss
== END 2019-08-20 15:33 | disposition home or self-care (01) | DRG 620 ==
LOC: 2ORMAIN 08-18 08:59 → 4SSUR 08-18 12:36
PROVIDERS: ADMIT Surgery Plastic and Reconstructive Surgery; ATTEND Surgery Plastic and Reconstructive Surgery
PROC: 5A09457 Assistance with Respiratory Ventilation, 24-96 Consecutive Hours, Continuous Positive Airway Pressure (ICD-10-PCS; 2019-08-18)
PROC: 0DB64Z3 Excision of Stomach, Percutaneous Endoscopic Approach, Vertical (ICD-10-PCS; principal; 2019-08-18 10:50)
PROC: 0DJ08ZZ Inspection of Upper Intestinal Tract, Via Natural or Artificial Opening Endoscopic (ICD-10-PCS; principal; 2019-08-18 10:50)
PROC: 8E0W4CZ Robotic Assisted Procedure of Trunk Region, Percutaneous Endoscopic Approach (ICD-10-PCS; principal; 2019-08-18 10:50)
DX: E66.01 Morbid (severe) obesity due to excess calories (principal); I50.42 Chronic combined systolic (congestive) and diastolic (congestive) heart failure; I11.0 Hypertensive heart disease with heart failure; E78.5 Hyperlipidemia, unspecified; G47.33 Obstructive sleep apnea (adult) (pediatric); D17.22 Benign lipomatous neoplasm of skin and subcutaneous tissue of left arm; N13.9 Obstructive and reflux uropathy, unspecified; I48.91 Unspecified atrial fibrillation; M17.0 Bilateral primary osteoarthritis of knee; M47.9 Spondylosis, unspecified; M41.9 Scoliosis, unspecified; K21.9 Gastro-esophageal reflux disease without esophagitis; J44.9 Chronic obstructive pulmonary disease, unspecified; G89.4 Chronic pain syndrome; M47.896 Other spondylosis, lumbar region; M51.36 Other intervertebral disc degeneration, lumbar region; F41.9 Anxiety disorder, unspecified; M10.9 Gout, unspecified; Z98.890 Other specified postprocedural states; Z68.41 Body mass index [BMI] 40.0-44.9, adult; Z90.89 Acquired absence of other organs; Z79.899 Other long term (current) drug therapy; Z79.01 Long term (current) use of anticoagulants; Z95.810 Presence of automatic (implantable) cardiac defibrillator; Z87.891 Personal history of nicotine dependence; Z90.49 Acquired absence of other specified parts of digestive tract; Z93.3 Colostomy status; Z80.1 Family history of malignant neoplasm of trachea, bronchus and lung; Z82.49 Family history of ischemic heart disease and other diseases of the circulatory system; Z83.3 Family history of diabetes mellitus; Z80.42 Family history of malignant neoplasm of prostate; Z82.61 Family history of arthritis; Z87.19 Personal history of other diseases of the digestive system; Z99.89 Dependence on other enabling machines and devices; Z98.52 Vasectomy status; Z14.8 Genetic carrier of other disease; Z79.1 Long term (current) use of non-steroidal anti-inflammatories (NSAID)
CPT/HCPCS: 74240; 80051; 82310; 82565; 83735; 84100; 84520; 85025; 86850; 86900; 86901; 88307; 94640; 94760; 94762

== ENCOUNTER → 2019-08-08 | Outpatient (CLI) | payer MEDICARE, OTHER ==
[2019-08-08 14:58] LABS: Basophils # (A) 0.1 k/uL (0-0.2); Basophils % (A) 1 %; Eosinophils # (A) 0.1 k/uL (0-0.7); Eosinophils % (A) 1 %; HCT 43.2 % (39.0-53.0); HGB 13.6 gm/dL (13.0-17.5); Lymphocytes # (A) 1.1 k/uL (1.0-4.8); Lymphocytes % (A) 14 %; MCH 30.3 pg (25.0-35.0); MCHC 31.4 g/dL (31.0-37.0); MCV 96.5 fL (80.0-100.0); Mean Platelet Volume 6.9; Monocytes # (A) 0.5 k/uL (0-1.0); Monocytes % (A) 6 %; Neutrophils # (A) 6.2 k/uL (1.3-7.7); Neutrophils % (A) 77 %; Platelet Count 219 k/uL (150-450); RBC 4.48 m/uL (4.30-5.90); RDW 14.2 % (11.5-15.5); WBC 8.1 k/uL (3.8-10.6)
[2019-08-08 15:06] LABS: Albumin 4.4 g/dL (3.5-5.0); Calcium 9.6 mg/dL (8.4-10.2); Potassium 4.6 mmol/L (3.5-5.1); Total Bilirubin 0.7 mg/dL (0.2-1.3); Total Protein 7.2 g/dL (6.3-8.2)
== END | disposition home or self-care (01) ==
LOC: LABPAT 14:19
PROVIDERS: ATTEND Surgery Plastic and Reconstructive Surgery
DX: Z01.812 Encounter for preprocedural laboratory examination (principal)
CPT/HCPCS: 80053; 85025

== ENCOUNTER → 2019-08-22 | Outpatient (CLI) | payer MEDICARE, OTHER ==
[2019-08-22 10:25] VITALS: BP 108/62; PULSE 100; TEMP 97.8; BMI 41.4
--- NOTE | 2019-08-22 18:09 | P.PN ---
Subjective Progress Note Date: 08/22/19 Clinically doing well. He is tolerating diet. No new chest pain. No productive sputum. No abdominal pain. Incisions without signs of infection. Patient to resume blood thinner on Sunday 6+ days postop with high risk with current blood thinner. Patient to follow up in 1-2 weeks was transitioned to s tage II stage III diet. Objective - Vital Signs Vital signs: Vital Signs Temp 97.8 F 08/22/19 10:17 Pulse 100 08/22/19 10:17 Resp BP 108/62 08/22/19 10:17 Pulse Ox Intake & Output 08/21/19 08/22/19 08/22/19 18:59 06:59 18:59 Weight 146.51 kg
== END | disposition home or self-care (01) ==
LOC: BARWHC3 09:52
PROVIDERS: ATTEND Surgery Plastic and Reconstructive Surgery
DX: K92.2 Gastrointestinal hemorrhage, unspecified (principal); I11.0 Hypertensive heart disease with heart failure; I50.9 Heart failure, unspecified; J45.909 Unspecified asthma, uncomplicated; M19.90 Unspecified osteoarthritis, unspecified site; I48.92 Unspecified atrial flutter; G47.33 Obstructive sleep apnea (adult) (pediatric)
CPT/HCPCS: 99211

== ENCOUNTER → 2019-09-03 | Outpatient (CLI) | payer MEDICARE, OTHER ==
[2019-09-03 15:47] VITALS: BP 103/62; PULSE 74; RESP 16; TEMP 97.4; BMI 39.9
--- NOTE | 2019-09-03 16:12 | P.PN ---
Subjective Progress Note Date: 09/03/19 DATE OF SERVICE: 09/03/2019 CHIEF COMPLAINT: Morbid obesity HISTORY OF PRESENT ILLNESS: Bandar Moreno is a 63-year-old male who is status post sleeve gastrectomy, 08/18/19. He is 2 weeks out. He has lost almost 30 pounds. He denies any gastroesophageal reflux disease. He reports osteoarthritis of his wrists and back. He wants to take his Mobic. After discussion with the dietitian, the patient is eating chicken parmesan, high carb foods, and not adhering to diet. At height of 6 feet 2 inches, his ideal body weight is 193 pounds. Highest weight of 338 pounds with BMI of 43.5. Today, he comes in 310 pounds from 322 pounds, 2 weeks ago. He has lost 12 pounds in 2 weeks. His body mass index is 39.9. Lifetime weight loss of 28 pounds. Percent excess weight loss of 19 %. He is 117 pounds overweight. PHYSICAL EXAM: VITAL SIGNS: Height 6 foot 2 inches, weight 310 pounds. BMI 39.9 Vital Signs Temp 97.4 F L 09/03/19 15:44 Pulse 74 09/03/19 15:44 Resp 16 09/03/19 15:44 BP 103/62 09/03/19 15:44 Pulse Ox GENERAL: Well-developed in no acute distress. HEENT: No scleral icterus. Extraocular movements grossly intact. Hears conversational speech. No nasal drainage. NECK: Supple without lymphadenopathy. CHEST: Nonlabored respirations with equal bilateral excursions. CARDIOVASCULAR: Distal 2+ pulses. ABDOMEN: No hernia. Soft. Non-distended. MUSCULOSKELETAL: No clubbing, cyanosis. Gross strength 5/5 distal lower extremities. . NEURO: No focal or lateralizing signs. Cranial nerves 2 through 12 grossly within normal limits. PSYCH: Appropriate affect. Alert and oriented to person, place and time. SKIN: Good skin turgor. Well perfused. ASSESSMENT: 1. Morbid obesity due to excess calories 2. Body mass index of 43.7 to 39.9 3. Osteoarthritis of the knees. 4. Osteoarthritis of the lower back. 5. Hypertensive heart disease. 6. Gastroesophageal reflux disease 7. Hyperlipidemia 8. Obstructive sleep apnea 9. Chronic obstructive pulmonary disease 10. Obstructive uropathy 11. Atrial fibrillation 12. Congestive heart failure 13. Chronic pain syndrome 14. Gout 15. Diverticulitis 16. Anxiety disorder 17. Lipoma of the left arm 18. Chronic pain 19. Status post sleeve gastrectomy 20. Chronic anti-coagulant use 21. Dietary non-compliance PLAN: 1. Recommend bariatric labs. 2. He would probably benefit from panniculectomy in the future. 3. Hold off until 30th, in 2 weeks, for Mobic. 4. I personally called and spoke to the patient about strict adherence to diet plan Objective - Vital Signs Vital signs: Vital Signs Temp 97.4 F L 09/03/19 15:44 Pulse 74 09/03/19 15:44 Resp 16 09/03/19 15:44 BP 103/62 09/03/19 15:44 Pulse Ox Intake & Output 09/02/19 09/03/19 09/03/19 18:59 06:59 18:59 Weight 141.067 kg
== END | disposition home or self-care (01) ==
LOC: BARWHC3 13:59
PROVIDERS: ATTEND Surgery Plastic and Reconstructive Surgery
DX: E66.01 Morbid (severe) obesity due to excess calories (principal); Z09 Encounter for follow-up examination after completed treatment for conditions other than malignant neoplasm; Z98.84 Bariatric surgery status; Z68.39 Body mass index [BMI] 39.0-39.9, adult; M17.0 Bilateral primary osteoarthritis of knee; I11.0 Hypertensive heart disease with heart failure; E78.5 Hyperlipidemia, unspecified; Z91.11 Patient's noncompliance with dietary regimen; J44.9 Chronic obstructive pulmonary disease, unspecified
CPT/HCPCS: 97803; G0463; 99211

== ENCOUNTER → 2019-09-17 | Outpatient (CLI) | payer MEDICARE, OTHER ==
[2019-09-17 13:24] VITALS: BP 116/72; PULSE 78; RESP 16; TEMP 97.4; BMI 38.9
--- NOTE | 2019-09-17 14:22 | P.PN ---
Subjective Progress Note Date: 09/17/19 DATE OF SERVICE: 09/17/2019 CHIEF COMPLAINT: Morbid obesity HISTORY OF PRESENT ILLNESS: Bandar Moreno is a 63-year-old male who is status post sleeve gastrectomy, 08/18/19. He is 1 month out. He has lost 20 pounds in 1 month. He is not aware of his protein intake. HE is not journaling his food intake. At height of 6 feet 2 inches, his ideal body weight is 193 pounds. Highest weight of 338 pounds with BMI of 43.5. Today, he comes in 302 pounds from 310 pounds, 2 weeks ago. He has lost 8 pounds in 2 weeks. His body mass index is 38.9. Lifetime weight loss of 36 pounds. Percent excess weight loss of 25 % lifetime. He is 109 pounds overweight. PHYSICAL EXAM: VITAL SIGNS: Height 6 foot 2 inches, weight 302 pounds. BMI 38.9 Vital Signs Temp 97.4 F L 09/17/19 13:21 Pulse 78 09/17/19 13:21 Resp 16 09/17/19 13:21 BP 116/72 09/17/19 13:21 Pulse Ox GENERAL: Well-developed in no acute distress. HEENT: No scleral icterus. Extraocular movements grossly intact. Hears conversational speech. No nasal drainage. NECK: Supple without lymphadenopathy. CHEST: Nonlabored respirations with equal bilateral excursions. CARDIOVASCULAR: Distal 2+ pulses. ABDOMEN: No hernia. Soft. Non-distended. Non-tender. MUSCULOSKELETAL: No clubbing, cyanosis. NEURO: No focal or lateralizing signs. Cranial nerves 2 through 12 grossly within normal limits. PSYCH: Appropriate affect. Alert and oriented to person, place and time. SKIN: Good skin turgor. Well perfused. ASSESSMENT: 1. Morbid obesity due to excess calories 2. Body mass index of 43.7 to 38.9 3. Osteoarthritis of the knees. 4. Osteoarthritis of the lower back. 5. Hypertensive heart disease. 6. Gastroesophageal reflux disease 7. Hyperlipidemia 8. Obstructive sleep apnea 9. Chronic obstructive pulmonary disease 10. Obstructive uropathy 11. Atrial fibrillation 12. Congestive heart failure 13. Chronic pain syndrome 14. Gout 15. Diverticulitis 16. Anxiety disorder 17. Lipoma of the left arm 18. Chronic pain 19. Status post sleeve gastrectomy 20. Chronic anti-coagulant use 21. Dietary non-compliance PLAN: 1. Recommend food diary journal with goal protein intake over 90 grams daily. 2. She is 1 month. 3. Recommend bariatric labs. Objective - Vital Signs Vital signs: Vital Signs Temp 97.4 F L 09/17/19 13:21 Pulse 78 09/17/19 13:21 Resp 16 09/17/19 13:21 BP 116/72 09/17/19 13:21 Pulse Ox Intake & Output 09/16/19 09/17/19 09/17/19 18:59 06:59 18:59 Weight 137.438 kg
== END | disposition home or self-care (01) ==
LOC: BARWHC3 12:52
PROVIDERS: ATTEND Surgery Plastic and Reconstructive Surgery
DX: E66.01 Morbid (severe) obesity due to excess calories (principal); Z68.38 Body mass index [BMI] 38.0-38.9, adult
CPT/HCPCS: 99211

== ENCOUNTER → 2019-09-22 | Outpatient (CLI) | payer MEDICARE, OTHER ==
[2019-09-22 14:53] LABS: HCT 39.6 % (39.0-53.0); MCHC 32.8 g/dL (31.0-37.0); MCV 94.4 fL (80.0-100.0); Mean Platelet Volume 7.4; Platelet Count 179 k/uL (150-450); RDW 14.3 % (11.5-15.5); WBC 7.2 k/uL (3.8-10.6)
[2019-09-22 15:03] LABS: Partial Thromboplastin Time 27.2 sec (22.0-30.0)
[2019-09-22 20:19] LABS: Ferritin 67.4 ng/mL (22.0-322.0)
[2019-09-22 20:29] LABS: Folate, Serum >24.0 ng/mL
[2019-09-22 20:32] LABS: % Iron Saturation 26.97 (15.00-50.00); ALT 28 U/L (10-49); AST 24 U/L (14-35); African American GFR (CKD) 91.1 (60.0-200.0); Albumin/Globulin Ratio 2.53 (1.60-3.17); Alkaline Phosphatase 109 U/L (41-126); Calcium 9.2 mg/dL (8.7-10.3); Carbon Dioxide 27.6 mmol/L (21.6-31.8); Chloride 105 mmol/L (96-109); Chol/HDL Ratio 4.36; Cholesterol 144 mg/dL (0-200); Globulin 1.7 g/dL (1.6-3.3); Glucose 95 mg/dL (70-110); Iron 72 ug/dL (65-175); LDL Cholesterol,Calculated 81.6 mg/dL (0.0-131.0); Non-African American GFR(CKD) 78.6 (60.0-200.0); Potassium 4.3 mmol/L (3.5-5.5); Sodium 141 mmol/L (135-145); Total Bilirubin 0.5 mg/dL (0.2-1.2); Total Iron Binding Capacity 267 ug/dL (228-460)
[2019-09-22 21:08] LABS: Phosphorus 3.7 mg/dL (2.4-5.1)
[2019-09-22 22:31] LABS: Hemoglobin A1C 5.7 % (4.0-6.0)
[2019-09-24 13:07] LABS: Zinc, Serum 62 ug/dL (60-130)
[2019-09-25 06:47] LABS: Vit B1(Thiamine) 50 ug/L (38-122)
[2019-09-25 07:14] LABS: Vitamin A 57 ug/dL (38-106)
[2019-09-26 14:21] LABS: Selenium 134 mcg/L (63-160)
== END | disposition home or self-care (01) ==
LOC: LABWHC1 13:41
PROVIDERS: ATTEND Surgery Plastic and Reconstructive Surgery
DX: E66.01 Morbid (severe) obesity due to excess calories (principal); E21.1 Secondary hyperparathyroidism, not elsewhere classified; E89.1 Postprocedural hypoinsulinemia; D50.9 Iron deficiency anemia, unspecified; K90.9 Intestinal malabsorption, unspecified; E55.9 Vitamin D deficiency, unspecified; K76.9 Liver disease, unspecified; N19 Unspecified kidney failure; K50.90 Crohn's disease, unspecified, without complications
CPT/HCPCS: 36415; 80053; 80061; 82306; 82525; 82607; 82728; 82746; 83036; 83540; 83550; 83735; 83970; 84100; 84134; 84255; 84425; 84443; 84590; 84630; 85027; 85610; 85730

== ENCOUNTER → 2019-11-19 | Outpatient (CLI) | payer MEDICARE, OTHER ==
--- NOTE | 2019-11-19 13:46 | P.PN ---
Subjective Progress Note Date: 11/19/19 DATE OF SERVICE: 11/19/2019 CHIEF COMPLAINT: Morbid obesity HISTORY OF PRESENT ILLNESS: Bandar Moreno is a 63-year-old male who is status post sleeve gastrectomy, 08/18/19. He is 3 months out. He is requesting Omeprazole. He has no abdominal pain. No dysphagia. He was 343 pounds now down to 278 pounds today. His protein intake is subpar at barely 75 grams. At height of 6 feet 2 inches, his ideal body weight is 193 pounds. Highest weight of 343 pounds with BMI of 44.1. Today, he comes in 278 pounds from 302 pounds, 2 months ago. He has lost 24 pounds in 2 months. His body mass index is 35.8. Lifetime weight loss of 65 pounds. Percent excess weight loss of 43 % lifetime. He is 85 pounds overweight. PHYSICAL EXAM: VITAL SIGNS: Height 6 foot 2 inches, weight 278 pounds. BMI 35.8 Vital Signs Temp 98.2 F 11/19/19 14:09 Pulse 75 11/19/19 14:09 Resp BP 121/69 11/19/19 14:09 Pulse Ox GENERAL: Well-developed in no acute distress. HEENT: No scleral icterus. Extraocular movements grossly intact. Hears conversational speech. No nasal drainage. NECK: Supple without lymphadenopathy. CHEST: Nonlabored respirations with equal bilateral excursions. CARDIOVASCULAR: Distal 2+ pulses. ABDOMEN: No hernia. Soft. Non-distended. Non-tender. MUSCULOSKELETAL: No clubbing, cyanosis. NEURO: No focal or lateralizing signs. Cranial nerves 2 through 12 grossly within normal limits. PSYCH: Appropriate affect. Alert and oriented to person, place and time. SKIN: Good skin turgor. Well perfused. ASSESSMENT: 1. Morbid obesity due to excess calories 2. Body mass index of 43.7 to 35.8 3. Osteoarthritis of the knees. 4. Osteoarthritis of the lower back. 5. Hypertensive heart disease. 6. Gastroesophageal reflux disease 7. Hyperlipidemia 8. Obstructive sleep apnea 9. Chronic obstructive pulmonary disease 10. Obstructive uropathy 11. Atrial fibrillation 12. Congestive heart failure 13. Chronic pain syndrome 14. Gout 15. Diverticulitis 16. Anxiety disorder 17. Lipoma of the left arm 18. Chronic pain 19. Status post sleeve gastrectomy 20. Chronic anti-coagulant use PLAN: 1. He is 3 months post op, recommend bariatric labs 2. 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 Dietary instructions reviewed including protein intake 90+ grams daily Laboratory Last Values WBC 8.6 k/uL (3.8-10.6) 11/19/19 14:24 RBC 4.37 m/uL (4.30-5.90) 11/19/19 14:24 Hgb 13.4 gm/dL (13.0-17.5) 11/19/19 14:24 Hct 42.4 % (39.0-53.0) 11/19/19 14:24 MCV 97.1 fL (80.0-100.0) 11/19/19 14:24 MCH 30.6 pg (25.0-35.0) 11/19/19 14:24 MCHC 31.5 g/dL (31.0-37.0) 11/19/19 14:24 RDW 14.5 % (11.5-15.5) 11/19/19 14:24 Plt Count 214 k/uL (150-450) 11/19/19 14:24 PT 10.5 sec (9.0-12.0) 11/19/19 14:24 INR 1.0 (<1.2) 11/19/19 14:24 APTT 24.3 sec (22.0-30.0) 11/19/19 14:24 Sodium 140 mmol/L (135-145) 11/19/19 14:24 Potassium 4.7 mmol/L (3.5-5.5) 11/19/19 14:24 Chloride 100 mmol/L (96-109) 11/19/19 14:24 Carbon Dioxide 29.4 mmol/L (21.6-31.8) 11/19/19 14:24 Anion Gap 10.60 mmol/L (4.00-12.00) 11/19/19 14:24 BUN 28.0 mg/dL (9.0-27.0) H 11/19/19 14:24 Creatinine 1.2 mg/dL (0.6-1.5) 11/19/19 14:24 Est GFR (CKD-EPI)AfAm 72.6 (60.0-200.0) 11/19/19 14:24 Est GFR (CKD-EPI)NonAf 62.6 (60.0-200.0) 11/19/19 14:24 BUN/Creatinine Ratio 23.33 Ratio (12.00-20.00) H 11/19/19 14:24 Glucose 113 mg/dL (70-110) H 11/19/19 14:[address] Glu mg/dL 117 11/19/19 14:24 Hemoglobin A1c 5.7 % (4.0-6.0) 11/19/19 14:24 Calcium 9.4 mg/dL (8.7-10.3) 11/19/19 14:24 Phosphorus 4.5 mg/dL (2.4-5.1) 11/19/19 14:24 Magnesium 2.2 mg/dL (1.5-2.4) 11/19/19 14:24 Iron 72 ug/dL (65-175) 11/19/19 14:24 TIBC 246 ug/dL (228-460) 11/19/19 14:24 % Saturation 29.27 (15.00-50.00) 11/19/19 14:24 Ferritin 83.6 ng/mL (22.0-322.0) 11/19/19 14:24 Total Bilirubin 0.5 mg/dL (0.3-1.2) 11/19/19 14:24 AST 24 U/L (14-35) 11/19/19 14:24 ALT 27 U/L (10-49) 11/19/19 14:24 Alkaline Phosphatase 106 U/L (41-126) 11/19/19 14:24 Total Protein 6.2 g/dL (6.2-8.2) 11/19/19 14:24 Albumin 4.40 g/dL (3.80-4.90) 11/19/19 14:24 Globulin 1.8 g/dL (1.6-3.3) 11/19/19 14:24 Albumin/Globulin Ratio 2.44 g/dL (1.60-3.17) 11/19/19 14:24 Prealbumin 24.0 mg/dL (18.0-42.0) 11/19/19 14:24 Triglycerides 132.0 mg/dL (0.0-149.0) 11/19/19 14:24 Cholesterol 157 mg/dL (0-200) 11/19/19 14:24 LDL Cholesterol, Calc 88.6 mg/dL (0.0-131.0) 11/19/19 14:24 VLDL Cholesterol, Calc 26.40 mg/dL (5.00-40.00) 11/19/19 14:24 HDL Cholesterol 42.0 mg/dL (40.0-60.0) 11/19/19 14:24 Cholesterol/HDL Ratio 3.74 11/19/19 14:24 Vitamin A 73 ug/dL (38-106) 11/19/19 14:24 Vitamin B1 61 ug/L (38-122) 11/19/19 14:24 Vitamin B12 958.0 pg/mL (200.0-944.0) H 11/19/19 14:24 Vitamin D 25-Hydroxy 66.6 ng/mL (30.0-100.0) 11/19/19 14:24 Folate 23.3 ng/mL 11/19/19 14:24 TSH 1.700 uIU/mL (0.350-5.500) 11/19/19 14:24 PTH Intact 82.3 pg/mL (14.0-72.0) H 11/19/19 14:24 Copper 1352 ug/L (665-1480) 11/19/19 14:24 Selenium 123 mcg/L (63-160) 11/19/19 14:24 Zinc 59 ug/dL (60-130) L 11/19/19 14:24 Hgb A1c improved to 5.7% Zinc is low PTH is elevated Objective - Labs CBC & Chem 7: 11/19/19 14:24 11/19/19 14:24
[2019-11-19 13:51] VITALS: BMI 35.8
[2019-11-19 14:11] VITALS: BP 121/69; PULSE 75; TEMP 98.2
[2019-11-19 14:50] LABS: HCT 42.4 % (39.0-53.0); HGB 13.4 gm/dL (13.0-17.5); MCH 30.6 pg (25.0-35.0); MCHC 31.5 g/dL (31.0-37.0); MCV 97.1 fL (80.0-100.0); Mean Platelet Volume 8.1; Platelet Count 214 k/uL (150-450); RBC 4.37 m/uL (4.30-5.90); RDW 14.5 % (11.5-15.5); WBC 8.6 k/uL (3.8-10.6)
[2019-11-19 15:08] LABS: Partial Thromboplastin Time 24.3 sec (22.0-30.0); Prothrombin Time 10.5 sec (9.0-12.0)
[2019-11-20 01:23] LABS: Hemoglobin A1C 5.7 % (4.0-6.0)
[2019-11-20 01:28] LABS: % Iron Saturation 29.27 (15.00-50.00); African American GFR (CKD) 72.6 (60.0-200.0); Albumin 4.4 g/dL (3.80-4.90); Albumin/Globulin Ratio 2.44 (1.60-3.17); Anion Gap 10.6 mmol/L (4.00-12.00); BUN/Creat Ratio 23.33 Ratio (12.00-20.00); Calcium 9.4 mg/dL (8.7-10.3); Carbon Dioxide 29.4 mmol/L (21.6-31.8); Chol/HDL Ratio 3.74; Globulin 1.8 g/dL (1.6-3.3); LDL Cholesterol,Calculated 88.6 mg/dL (0.0-131.0); Magnesium 2.2 mg/dL (1.5-2.4); Non-African American GFR(CKD) 62.6 (60.0-200.0); Phosphorus 4.5 mg/dL (2.4-5.1); Potassium 4.7 mmol/L (3.5-5.5); Total Bilirubin 0.5 mg/dL (0.3-1.2); Total Protein 6.2 g/dL (6.2-8.2); VLDL Calculation 26.4 mg/dL (5.00-40.00)
[2019-11-20 01:35] LABS: Ferritin 83.6 ng/mL (22.0-322.0)
[2019-11-20 01:40] LABS: Folate, Serum 23.3 ng/mL
[2019-11-20 14:01] LABS: Zinc, Serum 59 ug/dL (60-130)
[2019-11-21 07:09] LABS: Vitamin A 73 ug/dL (38-106)
[2019-11-21 12:51] LABS: Vit B1(Thiamine) 61 ug/L (38-122)
[2019-11-21 22:28] LABS: Selenium 123 mcg/L (63-160)
== END | disposition home or self-care (01) ==
LOC: BARWHC3 12:52
PROVIDERS: ATTEND Surgery Plastic and Reconstructive Surgery
DX: Z48.815 Encounter for surgical aftercare following surgery on the digestive system (principal); E66.01 Morbid (severe) obesity due to excess calories; M17.0 Bilateral primary osteoarthritis of knee; I11.0 Hypertensive heart disease with heart failure; I50.9 Heart failure, unspecified; K21.9 Gastro-esophageal reflux disease without esophagitis; E78.5 Hyperlipidemia, unspecified; G47.33 Obstructive sleep apnea (adult) (pediatric); J44.9 Chronic obstructive pulmonary disease, unspecified; N13.9 Obstructive and reflux uropathy, unspecified; I48.91 Unspecified atrial fibrillation; G89.4 Chronic pain syndrome; M10.9 Gout, unspecified; K57.92 Diverticulitis of intestine, part unspecified, without perforation or abscess without bleeding; F41.9 Anxiety disorder, unspecified; D17.22 Benign lipomatous neoplasm of skin and subcutaneous tissue of left arm; Z98.84 Bariatric surgery status; Z68.35 Body mass index [BMI] 35.0-35.9, adult; Z79.01 Long term (current) use of anticoagulants; E21.1 Secondary hyperparathyroidism, not elsewhere classified; E89.1 Postprocedural hypoinsulinemia; D50.9 Iron deficiency anemia, unspecified; K90.9 Intestinal malabsorption, unspecified; E55.9 Vitamin D deficiency, unspecified; K74.1 Hepatic sclerosis; N19 Unspecified kidney failure; K50.90 Crohn's disease, unspecified, without complications; E60 Dietary zinc deficiency
CPT/HCPCS: 84255; 84134; 84425; 80061; 80053; 82607; 82728; 82525; 82746; 83540; 83550; 83735; 84100; 84443; 84590; 84630; 85027; 85610; 85730; 82306; 83970; 83036; 97803; G0463; 99211

== ENCOUNTER → 2020-03-10 | Outpatient (CLI) | payer MEDICARE, OTHER ==
[2020-03-10 13:07] VITALS: BP 153/82; PULSE 65; RESP 20; TEMP 98.3; BMI 34.2
--- NOTE | 2020-03-10 13:50 | P.PN ---
Subjective Progress Note Date: 03/10/20 DATE OF SERVICE: 03/10/2020 CHIEF COMPLAINT: Status post sleeve gastrectomy HISTORY OF PRESENT ILLNESS: Bandar Moreno is a 64-year-old male who is status post sleeve gastrectomy, 08/18/19. He is 6 months out. His lower back pain is improving. He complains of his large pannus. He has history of prior incisional hernia repair and reports swelling of his abdomen. He reports improvement of his joints. He reports troubles with eating too much. He has lost 15 more pounds. He denies any new medications changes. His marketing intelligence manager manages his heart medications. His is BMI down from 43.7 to 34.3. He just completed his ECHO for his heart. He is on Entresto. He is not getting enough protein. He sees a pain specialist. His protein is under 60 grams daily. He is taking stool softeners for chronic constipation. At height of 6 feet 2 inches, his ideal body weight is 193 pounds. Highest weight of 343 pounds with BMI of 44.1. Today, he comes in 267 pounds from 278 pounds, 3 months ago. He has lost 12 pounds in 3 months. His body mass index is 34.3. Lifetime weight loss of 76 pounds. Percent excess weight loss of 51 % lifetime. He is 74 pounds overweight. PAST MEDICAL HISTORY: 1. Morbid obesity due to excess calories 2. Body mass index of 43.5, initial 3. Osteoarthritis of the knees. 4. Osteoarthritis of the lower back. 5. Hypertensive heart disease. 6. Gastroesophageal reflux disease 7. Hyperlipidemia 8. Obstructive sleep apnea 9. Chronic obstructive pulmonary disease 10. Obstructive uropathy 11. Atrial fibrillation 12. Congestive heart failure 13. Chronic pain syndrome 14. Gout 15. Diverticulitis 16. Anxiety disorder 17. Hiatal hernia PAST SURGICAL HISTORY: 1. Colostomy creation with reversal 2. Incisional hernia repair 3. Pacemaker placement 4. Tonsillectomy 5. Cardiac ablation 6. Upper endoscopy HOME MEDICATIONS: ALLERGIES: Home Medications Medication Instructions Recorded Confirmed Tamsulosin HCl [Flomax] 0.4 mg PO BID 04/06/15 03/10/20 Finasteride 5 mg PO HS 04/14/16 03/10/20 Simvastatin 40 mg PO HS 04/14/16 03/10/20 Carvedilol [Coreg] 25 mg PO AC-BID 04/18/16 03/10/20 Sotalol HCl [Betapace] 120 mg PO BID 05/17/16 03/10/20 Albuterol Nebulized [Ventolin 2.5 mg INHALATION RT-QID PRN 09/29/16 03/10/20 Nebulized] Potassium Chloride ER [K-Dur 20] 20 meq PO DAILY 09/29/16 03/10/20 Albuterol Sulfate [Proair Hfa] 2 puff INHALATION RT-BID PRN 11/13/17 03/10/20 HYDROcodone/APAP 10-325MG [[place] 1 tab PO BID PRN 01/07/18 03/10/20 10-325] tiZANidine [Zanaflex] 2 mg PO BID 01/07/18 03/10/20 Furosemide [Lasix] 40 mg PO DAILY 05/30/18 03/10/20 Sacubitril/Valsartan [Entresto 97 1 each PO BID 05/30/18 03/10/20 mg-103 mg Tablet] Gabapentin [Neurontin] 300 mg PO TID 05/21/19 03/10/20 Zolpidem [Ambien] 5 mg PO HS PRN 05/21/19 03/10/20 Previous Rx's Medication Instructions Recorded Allopurinol [Zyloprim] 100 mg PO DAILY@1200 tab 11/16/17 Omeprazole 40 mg PO DAILY #90 capsule. 05/26/19 Bisacodyl [Dulcolax] 5 mg PO DAILY PRN #10 tablet. 08/20/19 Omeprazole 40 mg PO DAILY #30 capsule. 08/20/19 Omeprazole [PriLOSEC] 40 mg PO DAILY #90 cap 11/19/19 SOCIAL HISTORY: Past tobacco use. FAMILY HISTORY: No family history of ulcerative colitis disease or Crohn's disease. Family history of morbid obesity. No lupus in the family. No reports of stomach or esophageal cancer. REVIEW OF ORGAN SYSTEMS: CONSTITUTIONAL: At height of 6 feet 2 inches, his ideal body weight is 193 pounds. Highest weight of 338 pounds with BMI of 43.5. He comes in 337 pounds. His body mass index is 43.4. He is 144 pounds overweight. HEENT: Denies any active troubles with vision or hearing. ENDOCRINE: No diabetes. No hypothyroidism. CARDIOVASCULAR: Past reports of palpitations or heart attacks or chest pain. RESPIRATORY: Has daytime somnolence. Has asthma. GASTROINTESTINAL: Denies any bright red blood per rectum. No diarrhea. No constipation. Has new gastroesophageal reflux disease. MUSCULOSKELETAL: Has lower back pain and joint pain. Has osteoarthritis of the knees. History of bilateral lower extremity edema. NEURO: No headaches. No seizure disorders. PSYCH: Has depression. No suicidal ideation. Has anxiety. RHEUMATOLOGIC: No lupus. No rheumatoid arthritis. HEMATOLOGIC: Denies any abnormal bleeding or bruising. No personal history of DVTs. SKIN: No rash. No skin cancer. PHYSICAL EXAM: VITAL SIGNS: Height 6 foot 2 inches, weight 267 pounds. BMI 34.3 Vital Signs Temp 98.3 F 03/10/20 13:01 Pulse 65 03/10/20 13:01 Resp 20 03/10/20 13:01 BP 153/82 03/10/20 13:01 Pulse Ox Intake & Output 03/10/20 03/10/20 03/11/20 06:59 18:59 06:59 Weight 121.2 kg GENERAL: Well-developed in no acute distress. HEENT: No scleral icterus. Extraocular movements grossly intact. Hears conversational speech. No nasal drainage. NECK: Supple without lymphadenopathy. CHEST: Nonlabored respirations with equal bilateral excursions. CARDIOVASCULAR: Distal 2+ pulses. ABDOMEN: No hernia. Soft. Non-distended. Non-tender. MUSCULOSKELETAL: No clubbing, cyanosis. NEURO: No focal or lateralizing signs. Cranial nerves 2 through 12 grossly within normal limits. PSYCH: Appropriate affect. Alert and oriented to person, place and time. SKIN: Good skin turgor. Well perfused. Large subcutaneous lipoma of the left posterior forearm 5-cm. LABS: Reviewed shows low albumin. ASSESSMENT: 1. Morbid obesity due to excess calories 2. Body mass index of 43.7 to 34.3 3. Osteoarthritis of the knees. 4. Osteoarthritis of the lower back. 5. Hypertensive heart disease. 6. Gastroesophageal reflux disease 7. Hyperlipidemia 8. Obstructive sleep apnea 9. Chronic obstructive pulmonary disease 10. Obstructive uropathy 11. Atrial fibrillation 12. Congestive heart failure 13. Chronic pain syndrome 14. Gout 15. Diverticulitis 16. Anxiety disorder 17. Lipoma of the left arm 18. Chronic pain 19. Status post sleeve gastrectomy 20. Chronic anti-coagulant use 21. Opiod induced constipation 22. Dietary surveillance and counseling PLAN: 1. Recommend evaluation for Linzess for opiod induced constipation 2. Recommend bariatric labs 3. Increase protein intake over 90 g daily 4. increase fluid intake to 90 to 120 ounces daily 5. Recommend fiber intake 25 to 30 grams 6. He complains of discomfort from a lipoma of the forearm. Recommend excision. He is elevated risk for complication with chronic anticoagulation use including congestive heart failure. Objective - Vital Signs Vital signs: Vital Signs Temp 98.3 F 03/10/20 13:01 Pulse 65 03/10/20 13:01 Resp 20 03/10/20 13:01 BP 153/82 03/10/20 13:01 Pulse Ox Intake & Output 03/09/20 03/10/20 03/10/20 18:59 06:59 18:59 Weight 121.2 kg
== END | disposition home or self-care (01) ==
LOC: BARWHC3 12:50
PROVIDERS: ATTEND Surgery Plastic and Reconstructive Surgery
DX: E66.01 Morbid (severe) obesity due to excess calories (principal); Z68.34 Body mass index [BMI] 34.0-34.9, adult; M17.10 Unilateral primary osteoarthritis, unspecified knee; M47.816 Spondylosis without myelopathy or radiculopathy, lumbar region; K21.9 Gastro-esophageal reflux disease without esophagitis; E78.5 Hyperlipidemia, unspecified; G47.33 Obstructive sleep apnea (adult) (pediatric); J44.9 Chronic obstructive pulmonary disease, unspecified; N13.9 Obstructive and reflux uropathy, unspecified; I48.91 Unspecified atrial fibrillation; I50.9 Heart failure, unspecified; I11.0 Hypertensive heart disease with heart failure; G89.4 Chronic pain syndrome; M10.9 Gout, unspecified; K57.92 Diverticulitis of intestine, part unspecified, without perforation or abscess without bleeding; F41.9 Anxiety disorder, unspecified; D17.22 Benign lipomatous neoplasm of skin and subcutaneous tissue of left arm; Z98.84 Bariatric surgery status; K59.03 Drug induced constipation; Z71.3 Dietary counseling and surveillance; Z79.01 Long term (current) use of anticoagulants; Z87.891 Personal history of nicotine dependence; Z79.899 Other long term (current) drug therapy
CPT/HCPCS: 97803; G0463; 99211

== ENCOUNTER → 2020-03-10 | Outpatient (CLI) | payer MEDICARE, OTHER ==
--- NOTE | 2020-03-11 11:47 | ECHOF ---
Referral Reason:I42.8 cardiomyopathy MEASUREMENTS -------- HEIGHT: 180.3 cm WEIGHT: 115.7 kg BP: IVSd: 1.7 cm (0.6 - 1.1) LVIDd: 5.3 cm (3.9 - 5.3) LVPWd: 1.3 cm (0.6 - 1.1) IVSs: 1.6 cm LVIDs: 4.3 cm LVPWs: 1.8 cm LAESV Index (A-L): 33.33 ml/m IVSd: 1.6 cm (0.6 - 1.1) LVIDd: 5.7 cm (3.9 - 5.3) LVPWd: 1.5 cm (0.6 - 1.1) IVSs: 1.8 cm LVIDs: 4.4 cm LVPWs: 2.1 cm EDV(Teich): 158 ml ESV(Teich): 88 ml EF(Teich): 44 % %FS: 22 % SV(Teich): 69 ml Ao Diam: 4.0 cm (2.0 - 3.7) AV Cusp: 2.4 cm (1.5 - 2.6) LA Diam: 3.8 cm (2.7 - 3.8) MV EXCURSION: 11.714 mm (> 18.000) MV EF SLOPE: 75 mm/s (70 - 150) EPSS: 1.5 cm MV E Kurtis: 0.84 m/s MV DecT: 208 ms MV A Kurtis: 0.99 m/s MV E/A Ratio: 0.85 AR PHT: 954 ms RAP: 5.00 mmHg RVSP: 30.43 mmHg FINDINGS -------- Paced rhythm. AICD This was a technically adequate study. The left ventricular size is normal. There is moderate concentric left ventricular hypertrophy. O verall left ventricular systolic function is mild-moderately impaired with, an EF between 40 - 45 %. Basal inferior LV wall motion is hypokinetic. Mid inferior LV wall motion is hypokinetic. The right ventricle is normal in size. The left atrial size is normal. The right atrial size is normal. Interatrial and interventricular septum intact. The aortic valve is trileaflet and appears structurally normal. There is mild aortic regurgitation. The mitral valve is normal. The mitral valve leaflets are mildly thickened. Mild mitral regurgita tion is present. The tricuspid valve appears structurally normal. Mild tricuspid regurgitation present. Right vent ricular systolic pressure is normal at < 35 mmHg. There is no pulmonic regurgitation present. The aortic root is dilated measuring 4.0 cm. Normal inferior vena cava with normal inspiratory collapse consistent with estimated right atrial pre ssure of 5 mmHg. There is a trivial pericardial effusion present. CONCLUSIONS -------- 1. Paced rhythm. 2. AICD 3. This was a technically adequate study. 4. The left ventricular size is normal. 5. There is moderate concentric left ventricular hypertrophy. 6. Overall left ventricular systolic function is mild-moderately impaired with, an EF between 40 - 45 %. 7. Basal inferior LV wall motion is hypokinetic. 8. Mid inferior LV wall motion is hypokinetic. 9. The right ventricle is normal in size. 10. The left atrial size is normal. 11. The right atrial size is normal. 12. Interatrial and interventricular septum intact. 13. The aortic valve is trileaflet and appears structurally normal. 14. There is mild aortic regurgitation. 15. The mitral valve is normal. 16. The mitral valve leaflets are mildly thickened. 17. Mild mitral regurgitation is present. 18. The tricuspid valve appears structurally normal. 19. Mild tricuspid regurgitation present. 20. Right ventricular systolic pressure is normal at < 35 mmHg. 21. There is no pulmonic regurgitation present. 22. The aortic root is dilated measuring 4.0 cm. 23. Normal inferior vena cava with normal inspiratory collapse consistent with estimated right atrial pressure of 5 mmHg. 24. There is a trivial pericardial effusion present. HEALTHCARE ACCOUNT MANAGER: Jelena Pinto RDCS
== END | disposition home or self-care (01) ==
LOC: RADECHMAIN 12:23
PROVIDERS: ATTEND Internal Medicine Cardiovascular Disease
DX: I08.3 Combined rheumatic disorders of mitral, aortic and tricuspid valves (principal); I77.810 Thoracic aortic ectasia; I42.8 Other cardiomyopathies; I48.19 Other persistent atrial fibrillation; I50.22 Chronic systolic (congestive) heart failure; R60.0 Localized edema; Z95.810 Presence of automatic (implantable) cardiac defibrillator
CPT/HCPCS: 93306; 97803; G0463; 99211

== ENCOUNTER → 2020-05-03 | Outpatient (CLI) | payer MEDICARE, OTHER ==
[2020-05-03 14:47] LABS: HCT 40.1 % (39.0-53.0); HGB 13.3 gm/dL (13.0-17.5); MCH 32.9 pg (25.0-35.0); MCHC 33.3 g/dL (31.0-37.0); Mean Platelet Volume 7.6; Platelet Count 193 k/uL (150-450); RBC 4.05 m/uL (4.30-5.90); RDW 13.6 % (11.5-15.5); WBC 7.5 k/uL (3.8-10.6)
[2020-05-03 19:31] LABS: INR 1.03 (0.90-1.11); Partial Thromboplastin Time 29.8 sec (24.7-29.9)
[2020-05-03 20:17] LABS: % Iron Saturation 36.33 (15.00-50.00); African American GFR (CKD) 80.6 (60.0-200.0); Albumin 4.2 g/dL (3.80-4.90); Albumin/Globulin Ratio 2.21 (1.60-3.17); Anion Gap 7.8 mmol/L (4.00-12.00); BUN/Creat Ratio 31.82 Ratio (12.00-20.00); Calcium 9.3 mg/dL (8.7-10.3); Carbon Dioxide 29.2 mmol/L (21.6-31.8); Chol/HDL Ratio 3.64; Globulin 1.9 g/dL (1.6-3.3); LDL Cholesterol,Calculated 96.6 mg/dL (0.0-131.0); Magnesium 2.2 mg/dL (1.5-2.4); Non-African American GFR(CKD) 69.6 (60.0-200.0); Phosphorus 4.7 mg/dL (2.4-5.1); Potassium 4.5 mmol/L (3.5-5.5); Total Bilirubin 0.7 mg/dL (0.3-1.2); Total Protein 6.1 g/dL (6.2-8.2); VLDL Calculation 27.4 mg/dL (5.00-40.00)
[2020-05-03 20:30] LABS: Folate, Serum 22.6 ng/mL
[2020-05-03 22:33] LABS: Hemoglobin A1C 5.5 % (4.0-6.0)
[2020-05-04 14:47] LABS: Zinc, Serum 80 ug/dL (60-130)
[2020-05-05 07:03] LABS: Vitamin A 81 ug/dL (38-106)
[2020-05-05 09:08] LABS: Vit B1(Thiamine) 66 ug/L (38-122)
[2020-05-06 02:26] LABS: Selenium 106 mcg/L (63-160)
== END | disposition home or self-care (01) ==
LOC: LABWHC1 13:38
PROVIDERS: ATTEND Surgery Plastic and Reconstructive Surgery
DX: E21.1 Secondary hyperparathyroidism, not elsewhere classified (principal); E89.1 Postprocedural hypoinsulinemia; D50.9 Iron deficiency anemia, unspecified; K90.89 Other intestinal malabsorption; E55.9 Vitamin D deficiency, unspecified; K74.1 Hepatic sclerosis; N19 Unspecified kidney failure; K50.90 Crohn's disease, unspecified, without complications
CPT/HCPCS: 36415; 80053; 80061; 82306; 82525; 82607; 82728; 82746; 83036; 83540; 83550; 83735; 83970; 84100; 84134; 84255; 84425; 84443; 84590; 84630; 85027; 85610; 85730

== ENCOUNTER → 2020-09-15 | Outpatient (CLI) | payer MEDICARE, OTHER ==
[2020-09-15 12:32] LABS: HCT 40.3 % (39.0-53.0); HGB 13.5 gm/dL (13.0-17.5); MCH 32.9 pg (25.0-35.0); MCHC 33.6 g/dL (31.0-37.0); MCV 98.1 fL (80.0-100.0); Mean Platelet Volume 7.3; Platelet Count 181 k/uL (150-450); RBC 4.11 m/uL (4.30-5.90); RDW 13.4 % (11.5-15.5); WBC 6.8 k/uL (3.8-10.6)
[2020-09-15 18:41] LABS: INR 1.02 (0.90-1.11); Partial Thromboplastin Time 25.1 sec (23.5-31.0)
[2020-09-15 19:08] LABS: % Iron Saturation 31.06 (15.00-50.00); African American GFR (CKD) 90.5 (60.0-200.0); Albumin 4.1 g/dL (3.80-4.90); Albumin/Globulin Ratio 2.28 (1.60-3.17); Anion Gap 4.4 mmol/L (4.00-12.00); Calcium 9.2 mg/dL (8.7-10.3); Carbon Dioxide 30.6 mmol/L (21.6-31.8); Chol/HDL Ratio 3.58; Globulin 1.8 g/dL (1.6-3.3); LDL Cholesterol,Calculated 96.2 mg/dL (0.0-131.0); Magnesium 2.1 mg/dL (1.5-2.4); Non-African American GFR(CKD) 78.1 (60.0-200.0); Phosphorus 3.8 mg/dL (2.4-5.1); Potassium 4.9 mmol/L (3.5-5.5); Total Bilirubin 0.7 mg/dL (0.3-1.2); Total Protein 5.9 g/dL (6.2-8.2); VLDL Calculation 19.8 mg/dL (5.00-40.00)
[2020-09-15 19:16] LABS: Ferritin 36.8 ng/mL (22.0-322.0)
[2020-09-15 19:30] LABS: Folate, Serum 18.8 ng/mL
[2020-09-15 22:11] LABS: Hemoglobin A1C 5.6 % (4.0-6.0)
[2020-09-17 13:54] LABS: Zinc, Serum 81 ug/dL (60-130)
== END | disposition home or self-care (01) ==
LOC: LABWHC1 11:13
PROVIDERS: ATTEND Surgery Plastic and Reconstructive Surgery
DX: D50.8 Other iron deficiency anemias (principal); E89.1 Postprocedural hypoinsulinemia; E44.0 Moderate protein-calorie malnutrition; E55.9 Vitamin D deficiency, unspecified; K74.1 Hepatic sclerosis; N19 Unspecified kidney failure; K50.90 Crohn's disease, unspecified, without complications
CPT/HCPCS: 36415; 80053; 80061; 82306; 82525; 82607; 82728; 82746; 83036; 83540; 83550; 83735; 83970; 84100; 84134; 84255; 84425; 84443; 84590; 84630; 85027; 85610; 85730

== ENCOUNTER → 2020-09-15 | Outpatient (CLI) | payer MEDICARE, OTHER ==
[2020-09-15 10:37] VITALS: BP 147/84; PULSE 67; RESP 18; TEMP 97.7
--- NOTE | 2020-09-15 11:12 | P.PAINCN ---
History of Present Illness - Reason for Consult Consult date: 09/15/20 - History of Present Illness This is initial consultation visit for this 64 years old male with a chronic history of severe neck pain and low back pain, for more than 10 years, had multiple pain management interventions done to the [facility],(lumbar epidural steroid injections ) and he had the partial benefit for a few days, currently most of the pain is in the low back area with radiation to the posterior lateral aspect of the lower extremity, the pain is constant and increases with any activity interfere with her quality of life, also patient had severe neck pain with radiation to the left upper extremity associated with some numbness and tingling sensation, he denies any fever or night sweats he denies any change in the bowel movement or urination, and he is currently on Neurontin 300 mg 3 times a day Zanaflex 4 mg twice a [place] 10/325 twice a day when necessary he reported the current medication helping mostly his neck pain but is not helping his low back pain, he denies any side effect of the medication Past Medical History Past Medical History: Atrial Fibrillation, Asthma, Heart Failure, COPD, GERD/Reflux, Hyperlipidemia, Hypertension, Osteoarthritis (OA), Prostate Disorder, Sleep Apnea/CPAP/BIPAP Additional Past Medical History / Comment(s): GOUT,scoliosis, ddd(neck),, back pain, neck problems-PINCHED NERVE, lumbar spine History of Any Multi-Drug Resistant Organisms: None Reported Year Discovered:: 04/26/2016 MDRO Source:: Bilat Leg Past Surgical History: AICD, Bariatric Surgery, Bowel Resection, Cardiac Ablation, Orthopedic Surgery, Pacemaker, Tonsillectomy Additional Past Surgical History / Comment(s): CRISELDA AND PLATE IN ankle(left), vasectomy, ruptured bowel- colon resection - colostomy WITH reversal April 2016, COLONOSCOPY, EGD sleeve Gastrectomy 08-18-19 Past Anesthesia/Blood Transfusion Reactions: No Reported Reaction Additional Past Anesthesia/Blood Transfusion Reaction / Comm: HAS HAD TRANSFUSION WITH NO PROBLEMS Type of Cardiac Device: Permanent Pacemaker, AICD Device Placement Date:: February 2018 Smoking Status: Former smoker - Past Family History Father Family Medical History: Cancer, Prostate Disorder Additional Family Medical History / Comment(s): PROSTATE AND LUNG CANCER, IRREGULAR HEART BEAT Mother Family Medical History: Diabetes Mellitus, Hypertension, Osteoarthritis (OA) Medications and Allergies Home Medications Medication Instructions Recorded Confirmed Type Tamsulosin HCl [Flomax] 0.4 mg PO BID 04/06/15 09/15/20 History Finasteride 5 mg PO HS 04/14/16 09/15/20 History Simvastatin 40 mg PO HS 04/14/16 09/15/20 History Carvedilol [Coreg] 25 mg PO AC-BID 04/18/16 09/15/20 History Sotalol HCl [Betapace] 120 mg PO BID 05/17/16 09/15/20 History Albuterol Nebulized [Ventolin 2.5 mg INHALATION RT-QID PRN 09/29/16 09/15/20 History Nebulized] Potassium Chloride ER [K-Dur 20] 20 meq PO DAILY 09/29/16 09/15/20 History Albuterol Sulfate [Proair Hfa] 2 puff INHALATION RT-BID PRN 11/13/17 09/15/20 History allopurinoL [Zyloprim] 100 mg PO DAILY@1200 tab 11/16/17 09/15/20 Rx HYDROcodone/APAP 10-325MG [[place] 1 tab PO BID PRN 01/07/18 09/15/20 History 10-325] tiZANidine [Zanaflex] 2 mg PO BID 01/07/18 09/15/20 History Furosemide [Lasix] 40 mg PO DAILY 05/30/18 09/15/20 History Sacubitril/Valsartan [Entresto 97 1 each PO BID 05/30/18 09/15/20 History mg-103 mg Tablet] Gabapentin [Neurontin] 300 mg PO TID 05/21/19 09/15/20 History Zolpidem [Ambien] 5 mg PO HS PRN 05/21/19 09/15/20 History Omeprazole 40 mg PO DAILY #90 capsule. 05/26/19 09/15/20 Rx bisacodyL [Dulcolax] 5 mg PO DAILY PRN #10 tablet. 08/20/19 09/15/20 Rx Nystatin 100,000 Unit/gm Powd 1 applic TOPICAL BID #60 powder 04/28/20 09/15/20 Rx [Mycostatin Powder] Omeprazole [PriLOSEC] 40 mg PO DAILY #90 cap 04/28/20 09/15/20 Rx Apixaban [Eliquis] 5 mg PO DAILY 07/28/20 09/15/20 History Allergies Allergy/AdvReac Type Severity Reaction Status Date / Time No Known Allergies Allergy Verified 09/15/20 10:12 Physical Exam Vitals: Vital Signs Temp Pulse Resp BP 09/15/20 10:13 97.7 F 67 18 147/84 Intake and Output 09/14/20 09/15/20 09/15/20 22:59 06:59 14:59 Other: Weight 113.398 kg Physical Examinations : -Constitutiona : Cooperative , not in acute distress . -HEENT : nech : supple , no Lymphadenopathy , normal thyroid size . : eyes : no ptosis , no icterus, no photophobia . - neurologic : Cranial nerve II to XII intact , no focal neurological deffecit . -psychatric : alert , oriented X 3 , appropriate affect , intact judgment and insight . -Lymphatic : no Lymphadenopathy . - musculoskeltal : Cervical Spine motor stregnth in the deltoid and biceps, normal right side , normal Left side motor stregnth biceps and the wrist extensors normal right side ,normal left side . motor stregnth in the triceps muscle . normal Right side , normal Left side deep tendon reflexes normal at the biceps , normal at Brachioradialis , normal at triceps. cervical facet loading test= Positive Bilaterally Spurling test= positive bilaterally. Neck distraction test= positive bilaterally. Rubi sign= positive bilaterally. Lumber spine moter stegnth lower extremities ,thigh and legs 5/5 Right side , 5/5 Left side deep tendon reflexes : normal Knee Jerk , normal ankle Jerk lumber facet Loading Test =positive Right , positive Left Range of motion of the lumbar spine Flexion 60 degrees, extension 10 degrees strait leg raising test = negative bilaterally Fabere test= negative bilaterally Results Comments: Computed tomography scan of the lumbar spine= lumbar degenerative disc disease multilevel, lumbar spondylosis, and foraminal stenosis Assessment and Plan Plan: Assessment and plan=1-lumbar spondylosis with lumbar facet arthropathy. 2-lumbar degenerative disc disease. 3-cervical spondylosis. Patient will be good candidate to have diagnostic medial branch block L2, L3, L4, L5, x2 this possible proceed with RFA Patient will continue his current medication as prescribed by his primary care. We'll hold ELEEnsyn before the RFA Time with Patient: Greater than 30 PQRS Measure Charge Sheet Measure #130: Documentation of Current Meds in Medical Chart: Patient's medications documented in chart Measure #226: Tobacco Use: Screen & Cessation Intervention: Pt not a tobacco user Measure #111: Pneumonia Vaccination: Pneumococcal vaccine administered or previously received Measure #47: Advance Care Plan: Advance care planning discussed & documented, pt chose/unable to give Measure #412: Opioid Treatment Agreement: No documentation of signed opioid treatment agreement Measure #408: Opioid Therapy Follow-up Evaluation: Patient had NO f/u eval minim um every 3 months during opioid therapy Measure #317: Preventitive Care & Scrn High Bld Press & F/U: Pre-hypertensive or hypertensive BP documented, pt will f/u with PCP Measure #128: Body Mass Index (BMI) Screening & Follow-up: BMI documented ABOVE normal parameters - f/u documented Measure #131: Pain Assessment & Follow-up: Pain positive & plan documented, Follow-up scheduled Measure #431: Unhealthy Alcohol Use Preventative Care & Scrn: Patient not identified as an unhealthy alcohol user PQRS Narrative: Smoking Status Former smoker Blood Pressure 147/84 Pain Intensity [Lower Back] 4 Scale Used Numeric (1 - 10) Home Medications: Ambulatory Orders Tamsulosin HCl [Flomax] 0.4 mg PO BID 04/06/15 Finasteride 5 mg PO HS 04/14/16 Simvastatin 40 mg PO HS 04/14/16 Carvedilol [Coreg] 25 mg PO AC-BID 04/18/16 Sotalol HCl [Betapace] 120 mg PO BID 05/17/16 Albuterol Nebulized [Ventolin Nebulized] 2.5 mg INHALATION RT-QID PRN 09/29/16 Potassium Chloride ER [K-Dur 20] 20 meq PO DAILY 09/29/16 Albuterol Sulfate [Proair Hfa] 2 puff INHALATION RT-BID PRN 11/13/17 allopurinoL [Zyloprim] 100 mg PO DAILY@1200 tab 11/16/17 HYDROcodone/APAP 10-325MG [[place] 10-325] 1 tab PO BID PRN 01/07/18 tiZANidine [Zanaflex] 2 mg PO BID 01/07/18 Furosemide [Lasix] 40 mg PO DAILY 05/30/18 Sacubitril/Valsartan [Entresto 97 mg-103 mg Tablet] 1 each PO BID 05/30/18 Gabapentin [Neurontin] 300 mg PO TID 05/21/19 Zolpidem [Ambien] 5 mg PO HS PRN 05/21/19 Omeprazole 40 mg PO DAILY #90 capsule. 05/26/19 bisacodyL [Dulcolax] 5 mg PO DAILY PRN #10 tablet. 08/20/19 Nystatin 100,000 Unit/gm Powd [Mycostatin Powder] 1 applic TOPICAL BID #60 powder 04/28/20 Omeprazole [PriLOSEC] 40 mg PO DAILY #90 cap 04/28/20 Apixaban [Eliquis] 5 mg PO DAILY 07/28/20
== END | disposition home or self-care (01) ==
LOC: PNWHC3 09:57
PROVIDERS: ATTEND Specialist
DX: M47.816 Spondylosis without myelopathy or radiculopathy, lumbar region (principal); M51.36 Other intervertebral disc degeneration, lumbar region; M47.812 Spondylosis without myelopathy or radiculopathy, cervical region; J45.909 Unspecified asthma, uncomplicated; J44.9 Chronic obstructive pulmonary disease, unspecified; I50.9 Heart failure, unspecified; I10 Essential (primary) hypertension; E78.5 Hyperlipidemia, unspecified; K21.9 Gastro-esophageal reflux disease without esophagitis; M19.90 Unspecified osteoarthritis, unspecified site; Z87.891 Personal history of nicotine dependence; Z79.891 Long term (current) use of opiate analgesic; Z79.899 Other long term (current) drug therapy; Z79.52 Long term (current) use of systemic steroids
CPT/HCPCS: 99211

== ENCOUNTER → 2020-10-06 | Outpatient (CLI) | payer MEDICARE, OTHER ==
--- NOTE | 2020-10-06 15:38 | P.PN ---
Subjective Progress Note Date: 10/06/20 DATE OF SERVICE: 10/06/2020 CHIEF COMPLAINT: Status post sleeve gastrectomy HISTORY OF PRESENT ILLNESS: Bandar Moreno is a 65-year-old male who is status post sleeve gastrectomy, 08/18/19. He is 1 year out. His weight loss is stable. He is looking for more weight loss. He is not overeating. He reports trouble with his pannus along his abdomen. He is seeking skin removal. He is also pending repair of torn rotator cuff of the shoulders and needs surgery. He has severe lower back pain. Separately, he reports swelling along his forearm and wants removal of his lipoma of the left forearm. At height of 6 feet 2 inches, his ideal body weight is 193 pounds. Highest weight of 343 pounds with BMI of 44.1. Today, he comes in 256 pounds unchanged from 2 months ago. His body mass index is 33.0. Lifetime weight loss of 87 pounds. Percent excess weight loss of 58 % lifetime. He is 63 pounds overweight. PAST MEDICAL HISTORY: 1. Morbid obesity due to excess calories 2. Body mass index of 44.1, initial 3. Osteoarthritis of the knees. 4. Osteoarthritis of the lower back. 5. Hypertensive heart disease. 6. Gastroesophageal reflux disease 7. Hyperlipidemia 8. Obstructive sleep apnea 9. Chronic obstructive pulmonary disease 10. Obstructive uropathy 11. Atrial fibrillation 12. Congestive heart failure 13. Chronic pain syndrome 14. Gout 15. Diverticulitis 16. Anxiety disorder 17. Hiatal hernia PAST SURGICAL HISTORY: 1. Colostomy creation with reversal 2. Incisional hernia repair 3. Pacemaker placement 4. Tonsillectomy 5. Cardiac ablation 6. Upper endoscopy HOME MEDICATIONS: ALLERGIES: Home Medications Medication Instructions Recorded Confirmed Tamsulosin HCl [Flomax] 0.4 mg PO BID 04/06/15 06/16/19 Apixaban [Eliquis] 5 mg PO BID 12/02/15 06/16/19 Finasteride 5 mg PO HS 04/14/16 06/16/19 Simvastatin 40 mg PO HS 04/14/16 06/16/19 Carvedilol [Coreg] 25 mg PO AC-BID 04/18/16 06/16/19 Sotalol HCl [Betapace] 120 mg PO BID 05/17/16 06/16/19 Albuterol Nebulized [Ventolin 2.5 mg INHALATION RT-QID PRN 09/29/16 06/16/19 Nebulized] Potassium Chloride ER [K-Dur 20] 20 meq PO DAILY 09/29/16 06/16/19 Albuterol Sulfate [Proair Hfa] 2 puff INHALATION RT-BID PRN 11/13/17 06/16/19 Vitamin A 10,000 unit PO DAILY@1200 11/13/17 06/16/19 HYDROcodone/APAP 10-325MG [[place] 1 tab PO BID PRN 01/07/18 06/16/19 10-325] tiZANidine [Zanaflex] 2 mg PO HS 01/07/18 06/16/19 Furosemide [Lasix] 40 mg PO DAILY 05/30/18 06/16/19 Sacubitril/Valsartan [Entresto 97 1 each PO BID 05/30/18 06/16/19 mg-103 mg Tablet] Gabapentin [Neurontin] 300 mg PO BID 05/21/19 06/16/19 Meloxicam [Mobic] 15 mg PO MOTUWETHFR 05/21/19 06/16/19 Zolpidem [Ambien] 5 mg PO HS PRN 05/21/19 06/16/19 Previous Rx's Medication Instructions Recorded Allopurinol [Zyloprim] 100 mg PO DAILY@1200 tab 11/16/17 Omeprazole 40 mg PO DAILY #90 capsule. 05/26/19 SOCIAL HISTORY: Past tobacco use. FAMILY HISTORY: No family history of ulcerative colitis disease or Crohn's disease. Family history of morbid obesity. No lupus in the family. No reports of stomach or esophageal cancer. REVIEW OF ORGAN SYSTEMS: CONSTITUTIONAL: At height of 6 feet 2 inches, his ideal body weight is 193 pounds. Highest weight of 343 pounds with BMI of 44.1. HEENT: Denies any active troubles with vision or hearing. ENDOCRINE: No diabetes. No hypothyroidism. CARDIOVASCULAR: Past reports of palpitations or heart attacks or chest pain. RESPIRATORY: Has daytime somnolence. Has asthma. GASTROINTESTINAL: Denies any bright red blood per rectum. No diarrhea. No constipation. Has new gastroesophageal reflux disease. MUSCULOSKELETAL: Has lower back pain and joint pain. Has osteoarthritis of the knees. History of bilateral lower extremity edema. NEURO: No headaches. No seizure disorders. PSYCH: Has depression. No suicidal ideation. Has anxiety. RHEUMATOLOGIC: No lupus. No rheumatoid arthritis. HEMATOLOGIC: Denies any abnormal bleeding or bruising. No personal history of DVTs. SKIN: No rash. No skin cancer. PHYSICAL EXAM: VITAL SIGNS: Height 6 foot 2 inches, weight 256 pounds. BMI 33.0 Vital Signs Temp 98.2 F 10/06/20 15:23 Pulse 73 10/06/20 15:23 Resp 18 10/06/20 15:23 BP 132/87 10/06/20 15:23 Pulse Ox GENERAL: Well-developed in no acute distress. HEENT: No scleral icterus. Extraocular movements grossly intact. Hears conversational speech. No nasal drainage. NECK: Supple without lymphadenopathy. CHEST: Nonlabored respirations with equal bilateral excursions. CARDIOVASCULAR: Distal 2+ pulses. Regular rate and rhythm. ABDOMEN: Soft. Non-distended. Non-tender. Has grade 3 panniculosis. Weight of pannus over 10 pounds. MUSCULOSKELETAL: No clubbing, cyanosis. NEURO: No focal or lateralizing signs. Cranial nerves 2 through 12 grossly within normal limits. PSYCH: Appropriate affect. Alert and oriented to person, place and time. SKIN: Good skin turgor. Well perfused. LABS: Reviewed. No vitamin deficiencies ASSESSMENT: 1. Morbid obesity due to excess calories 2. Body mass index of 43.7 to 33.0 3. Osteoarthritis of the knees. 4. Osteoarthritis of the lower back. 5. Hypertensive heart disease. 6. Gastroesophageal reflux disease 7. Hyperlipidemia 8. Obstructive sleep apnea 9. Chronic obstructive pulmonary disease 10. Obstructive uropathy 11. Atrial fibrillation 12. Congestive heart failure 13. Chronic pain syndrome 14. Gout 15. Diverticulitis 16. Anxiety disorder 17. Lipoma of the left arm 18. Chronic pain 19. Status post sleeve gastrectomy 20. Chronic anti-coagulant use 21. Opiod induced constipation 22. Dietary surveillance and counseling 23. Panniculitis. PLAN: 1. Recommend bariatric labs. 2. He will benefit from surgical excision of his pannus. Nystatin powder prescribed for control of symptoms. 3. Excision of his lipoma of the left forearm described. Objective - Vital Signs Vital signs: Intake & Output 12/15/20 12/16/20 12/16/20 18:59 06:59 18:59 Weight 116.573 kg
[2020-10-06 15:40] VITALS: RESP 18; BMI 33.0
[2020-10-06 15:45] VITALS: BP 132/87; PULSE 73; TEMP 98.2
== END | disposition home or self-care (01) ==
LOC: BARWHC3 15:19
PROVIDERS: ATTEND Surgery Plastic and Reconstructive Surgery
DX: E66.01 Morbid (severe) obesity due to excess calories (principal); M17.0 Bilateral primary osteoarthritis of knee; I11.0 Hypertensive heart disease with heart failure; K21.9 Gastro-esophageal reflux disease without esophagitis; E78.5 Hyperlipidemia, unspecified; G47.33 Obstructive sleep apnea (adult) (pediatric); J44.9 Chronic obstructive pulmonary disease, unspecified; I48.91 Unspecified atrial fibrillation; G89.4 Chronic pain syndrome; M10.9 Gout, unspecified; K57.92 Diverticulitis of intestine, part unspecified, without perforation or abscess without bleeding; F41.9 Anxiety disorder, unspecified; D17.22 Benign lipomatous neoplasm of skin and subcutaneous tissue of left arm; M79.3 Panniculitis, unspecified; T40.2X5A Adverse effect of other opioids, initial encounter; K59.03 Drug induced constipation; N13.9 Obstructive and reflux uropathy, unspecified; Z71.3 Dietary counseling and surveillance; Z98.84 Bariatric surgery status; Z79.01 Long term (current) use of anticoagulants; Z79.899 Other long term (current) drug therapy; Z79.1 Long term (current) use of non-steroidal anti-inflammatories (NSAID); Z68.41 Body mass index [BMI] 40.0-44.9, adult
CPT/HCPCS: 99211

== ENCOUNTER → 2020-10-07 | Day surgery (SDC) | payer MEDICARE, OTHER ==
[2020-10-05 14:39] VITALS: BMI 33.9
[~2020-10-07] MED LIST changes: +LACTATED RINGERS 1,000 ML IV ONE; +LIDOCAINE 1% (10MG/ML) FOR IV START INTRADERMA ONE; +MIDAZOLAM 2 MG/2 ML VIAL ONE; +ROPIVACAINE 5MG/ML 20ML VIAL ONE; +fentaNYL (PF) 50 MCG/ML 2 ML AMP ONE; +methylPREDNISolone ACETATE 40 MG/ML 1 ML VIAL ONE
[2020-10-07 11:54] VITALS: RESP 16; TEMP 97.8
--- NOTE | 2020-10-07 12:30 | P.PCN ---
Date of Procedure: 10/07/20 Procedure(s) Performed: PREOPERATIVE DIAGNOSIS : 1- Lumbar spondylosis with Facet Arthropathy without myelopathy . 2- Lumber degenerative disc disease POSTOPERATIVE DIAGNOSIS: 1- Lumbar spondylosis with Facet Arthropathy without myelopathy . 2- Lumber degenerative disc disease PROCEDURE: Diagnostic bilateral L3 , L4 , and L5 medial branch block under fluoroscopy guidance(fluoroscopy images available in the radiology Department ) ( To target the facet joint between L4-5 , and L5-S1 ) ANESTHESIA:, moderate sedation with intravenous Versed 2 mg and Fentanyl 50 mcg. EBL: Minimal COMPLICATION: None PROCEDURE INDICATION: Chronic low back pain secondary to Facet arthropathy unresponsive to conservative treatment. PROCEDURE DESCRIPTION: the patient was seen and identified in the preop holding area , risks and benefits and possible complications of the procedure and alternative were discussed with the patient, and the patient agreed to proceed with the procedure and signed the consent and vital signs monitored during the procedure and fluoroscopy was used to maximize the benefit and accuracy of the needle placement, and sedation was given to decrease patient anxiety, patient was taken to the procedure room and placed in prone position vital signs monitored in the back prepped with chlorhexidine X3 then under strict sterile technique using a right oblique fluoroscopy ,the junction of the transverse process and the superior articulating process of the right L3 , L4 , and L5 vertebra which corresponding to the fluoroscopy image of the eye of the Quirino dog on the block side for the medial branches and subsequently , after local infiltration of skin and subcu tissuies with Ropivacaine 0.5 % , one mL at each level ,then 22-gauge Quincke-type needles , 3 needle was used , each one of them placed at the junction of the base of the transverse process and the superior articular process at the appropriate level, and the needle was advanced until the periosteum contacted, needle placement confirmed with AP oblique and lateral view and after appropriate needle placement confirmed, and after negative aspiration for heme and CSF and there was no paresthesia 1-1/2 mL of Ropivacaine 0.5% mixed with 20 mg Depo-Medrol , then half mL injected at each level after negative aspiration the needle subsequently removed and the same procedure repeated for the left side at left side at L3 , L4 and L5 levels. At the end of the procedure and the needles removed and a bandage applied after the skin was cleaned the cleaning solution patient taken to recovery room in stable condition and monitors in the recovery room for 20-30 minutes and discharged home in stable condition after discharge criteria met and patient will follow up with the pain clinic in 2-4 weeks
--- NOTE | 2020-10-07 12:45 | FL ---
EXAMINATION TYPE: FL guided pain mgmt statistic DATE OF EXAM: 10/07/2020 HISTORY: Fluoroscopy time 13 seconds of fluoroscopy provided. IMPRESSION: 1. Fluoroscopy time.
[2020-10-07 12:53] VITALS: BP 152/80; PULSE 60
== END ==
LOC: ORPAIN 11:03
PROVIDERS: ATTEND Specialist
DX: G89.29 Other chronic pain (principal); M47.816 Spondylosis without myelopathy or radiculopathy, lumbar region; M51.36 Other intervertebral disc degeneration, lumbar region; I48.91 Unspecified atrial fibrillation; Z79.01 Long term (current) use of anticoagulants
CPT/HCPCS: 64493; 64494; J2250; J1030; J3010; J2795; 99152

== ENCOUNTER → 2021-05-16 | Outpatient (CLI) | payer MEDICARE, OTHER ==
--- NOTE | 2021-05-16 10:43 | CT ---
EXAMINATION TYPE: CT lumbar spine wo con DATE OF EXAM: 05/16/2021 10:35 AM COMPARISON: June 17, 2018 HISTORY: pain, DDD CT DLP: 1655.7 mGycm Automated exposure control for dose reduction was used. Unenhanced CT of the lumbar spine was performed. Bone and soft tissue window settings are submitted as well as coronal and sagittal reconstructions. Moderate curvature of the lumbar spine convex to the left. L1-L2: Normal disc space height. No disc herniation protrusion or central stenosis. No facet joint arthropathy. No evidence for foraminal encroachment. L2-L3: Severe degenerative disc space narrowing with vacuum disc and endplate sclerosis. Ventral and dorsal spondylosis. Disc endplate complex resulting in mild central stenosis at this level. L3-L4: Severe degenerative disc space narrowing with vacuum disc and endplate sclerosis. Ventral and dorsal spondylosis. Disc endplate complex resulting in moderate central stenosis at this level. Sever e facet joint arthropathy. L4-L5: Severe degenerative disc space narrowing with vacuum disc and endplate sclerosis. Ventral and dorsal spondylosis. Disc endplate complex resulting in moderate central stenosis at this level. Sever e facet joint arthropathy. Severe left foraminal encroachment. L5-S1: Severe degenerative disc disease with vacuum disc. Ventral and dorsal spondylosis BI-RADS mild effacement ventral thecal sac. Severe facet joint arthropathy with bilateral foraminal encroachment. IMPRESSION: 1. Multilevel degenerative disc disease with multilevel central stenosis as outlined above.
== END | disposition home or self-care (01) ==
LOC: RADCTMAIN 10:12
PROVIDERS: ATTEND Orthopaedic Surgery Orthopaedic Surgery of the Spine
DX: M48.061 Spinal stenosis, lumbar region without neurogenic claudication (principal); M51.36 Other intervertebral disc degeneration, lumbar region
CPT/HCPCS: 72131

== ENCOUNTER → 2021-07-07 | Outpatient (CLI) | payer MEDICARE, OTHER ==
[2021-07-07 18:54] LABS: HCT 36.9 % (39.6-50.0); MCHC 32.5 g/dL (32.0-37.0); MCV 98.4 fL (80.0-97.0); Mean Platelet Volume 10.9 fL (9.5-12.2); Platelet Count 204 X 10*3/uL (140-440); RBC 3.75 X 10*6/uL (4.40-5.60); RDW 13.9 % (11.5-14.5); WBC 5.32 X 10*3/uL (4.50-10.00)
[2021-07-08 05:23] LABS: African American GFR (CKD) 107.1 (60.0-200.0); Anion Gap 8.3 mmol/L (4.00-12.00); BUN/Creat Ratio 31.25 Ratio (12.00-20.00); Carbon Dioxide 25.7 mmol/L (21.6-31.8); Chol/HDL Ratio 3.02; LDL Cholesterol,Calculated 89.6 mg/dL (0.0-131.0); Non-African American GFR(CKD) 92.4 (60.0-200.0); Potassium 4.6 mmol/L (3.5-5.5); VLDL Calculation 15.4 mg/dL (5.00-40.00)
== END | disposition home or self-care (01) ==
LOC: LABWHC1 11:25
PROVIDERS: ATTEND Internal Medicine Cardiovascular Disease
DX: I47.2 Ventricular tachycardia (principal); I50.9 Heart failure, unspecified; I36.1 Nonrheumatic tricuspid (valve) insufficiency; I42.8 Other cardiomyopathies
CPT/HCPCS: 36415; 80048; 80061; 83880; 84439; 84443; 85027

== ENCOUNTER 2021-08-04 09:34 | Day surgery (SDC) | payer MEDICARE, OTHER ==
[2021-08-02 12:50] VITALS: BMI 33.9
--- NOTE | 2021-08-04 09:02 | P.GSHP ---
History of Present Illness H&P Date: 08/04/21 CHIEF COMPLAINT: Left forearm mass HISTORY OF PRESENT ILLNESS: The patient is a 65 year-old male with large left forearm tumor who presents for definitive excision. He presents today for excision. His pre-existing history of chronic obstructive pulmonary disease including chronic steroid use. PAST MEDICAL HISTORY: Please see list. PAST SURGICAL HISTORY: Please see list. MEDICATIONS: Please see list. ALLERGIES: Please see list. SOCIAL HISTORY: No illicit drug use FAMILY HISTORY: No reports of Crohn disease or ulcerative colitis. REVIEW OF ORGAN SYSTEMS: CONSTITUTIONAL: No reports of fevers or chills. GI: Denies any blood in stools or constipation. PHYSICAL EXAM: VITAL SIGNS: Stable Musculoskeletal: No clubbing cyanosis GENERAL: Well developed and in no acute distress. Pleasant. HEENT: No sclera icterus. Extraocular movements grossly intact. Moist buccal mucosa. Head is atraumatic, normocephalic. Hears conversational speech. No nasal drainage. NECK: Supple without lymphadenopathy. No JV distention. CHEST: Non-labored respirations and equal bilateral excursions. CARDIOVASCULAR: Regular rate and rhythm. Palpable 2+ radial pulses. ABDOMEN: Soft. Non-tender. Nondistended. NEUROLOGIC: No focal or lateralizing signs. PSYCH: Appropriate affect. Alert and oriented to person, place and time. SKIN: Tumor left forearm, 5 cm ASSESSMENT: 1. Left forearm tumor PLAN: 1. Will proceed of excision of left forearm tumor Benefits and risks described. He is moderately elevated risk due to chronic obstructive pulmonary disease and steroid use. 2. Antibiotic prophylaxis. Past Medical History Past Medical History: Atrial Fibrillation, Asthma, Heart Failure, COPD, GERD/Reflux, Hyperlipidemia, Hypertension, Osteoarthritis (OA), Prostate Disorder, Sleep Apnea/CPAP/BIPAP Additional Past Medical History / Comment(s): GOUT,scoliosis, ddd(neck),, back pain, neck problems-PINCHED NERVE, lumbar spine, Lipoma left arm. History of Any Multi-Drug Resistant Organisms: None Reported Date of last positivie culture/infection: 04/26/2016 MDRO Source:: Bilat Leg Past Surgical History: AICD, Bariatric Surgery, Bowel Resection, Cardiac Ablation, Orthopedic Surgery, Pacemaker, Tonsillectomy Additional Past Surgical History / Comment(s): CRISELDA AND PLATE IN ankle(left), vasectomy, ruptured bowel- colon resection - colostomy WITH reversal April 2016, COLONOSCOPY, EGD, sleeve Gastrectomy 08-18-19, Removal of toe nail L foot. AICD- [facility]. Past Anesthesia/Blood Transfusion Reactions: No Reported Reaction Additional Past Anesthesia/Blood Transfusion Reaction / Comment(s): HAS HAD TRANSFUSION WITH NO PROBLEMS Type of Cardiac Device: Permanent Pacemaker, AICD Device Placement Date:: February 2018 Smoking Status: Former smoker - Past Family History Father Family Medical History: Cancer, Prostate Disorder Additional Family Medical History / Comment(s): PROSTATE AND LUNG CANCER, IRREGULAR HEART BEAT Mother Family Medical History: Diabetes Mellitus, Hypertension, Osteoarthritis (OA) Medications and Allergies Home Medications Medication Instructions Recorded Confirmed Type Tamsulosin HCl [Flomax] 0.4 mg PO BID 04/06/15 08/02/21 History Finasteride 5 mg PO HS 04/14/16 08/02/21 History Simvastatin 40 mg PO HS 04/14/16 08/02/21 History Carvedilol [Coreg] 25 mg PO AC-BID 04/18/16 08/02/21 History Sotalol HCl [Betapace] 120 mg PO BID 05/17/16 08/02/21 History Albuterol Nebulized [Ventolin 2.5 mg INHALATION DAILY PRN 09/29/16 08/02/21 History Nebulized] Albuterol Sulfate [Proair Hfa] 2 puff INHALATION RT-BID PRN 11/13/17 08/02/21 History HYDROcodone/APAP 10-325MG [[place] 1 tab PO BID PRN 01/07/18 08/02/21 History 10-325] tiZANidine [Zanaflex] 2 mg PO BID 01/07/18 08/02/21 History Furosemide [Lasix] 40 mg PO DAILY 05/30/18 08/02/21 History Sacubitril/Valsartan [Entresto 97 1 each PO BID 05/30/18 08/02/21 History mg-103 mg Tablet] Gabapentin [Neurontin] 300 mg PO TID 05/21/19 08/02/21 History Zolpidem [Ambien] 5 mg PO HS PRN 05/21/19 08/02/21 History Omeprazole 40 mg PO DAILY #90 capsule. 05/26/19 08/02/21 Rx bisacodyL [Dulcolax] 5 mg PO DAILY PRN #10 tablet.dr 08/20/19 08/02/21 Rx Apixaban [Eliquis] 5 mg PO BID 07/28/20 08/02/21 History allopurinoL [Zyloprim] 300 mg PO DAILY 10/05/20 08/02/21 History Albuterol Inhaler [Ventolin Hfa 1 puff INHALATION RT-TID 08/02/21 08/02/21 History Inhaler] Albuterol Nebulized [Ventolin 1.25 mg INHALATION Q6H 08/02/21 08/02/21 History Nebulized] Allergies Allergy/AdvReac Type Severity Reaction Status Date / Time No Known Allergies Allergy Verified 08/02/21 12:26
[~2021-08-04 09:34] MED LIST changes: +ACETAMINOPHEN TAB 500 MG TAB PO STA; +DEXAMETHASONE SOD PHOSPHATE 4 MG/ML 1 ML VIAL IV ONE; +HEPARIN SODIUM,PORCINE/PF 5,000 UNIT/0.5 ML SYRINGE SQ PRN; +HYDROmorphone 0.5 MG/0.5 ML SYRINGE IVP PRN; -LACTATED RINGERS 1,000 ML IV ONE; -LIDOCAINE 1% (10MG/ML) FOR IV START INTRADERMA ONE; +MELOXICAM 7.5 MG TAB PO SCH; -MIDAZOLAM 2 MG/2 ML VIAL ONE; +ONDANSETRON 4 MG/2 ML VIAL IVP ONE; +Pre Op ABX Message 1 EACH MISC MISCELLANE ONE; -ROPIVACAINE 5MG/ML 20ML VIAL ONE; -fentaNYL (PF) 50 MCG/ML 2 ML AMP ONE; -methylPREDNISolone ACETATE 40 MG/ML 1 ML VIAL ONE
[2021-08-04 10:04] VITALS: TEMP 98
[2021-08-04] MEDS ORDERED: LACTATED RINGERS 1,000 ML IV ONE (10:04)
[2021-08-04] MEDS ORDERED: fentaNYL (PF) 50 MCG/ML 2 ML AMP ONE (11:41)
[2021-08-04] MEDS ORDERED: PROPOFOL 10 MG/ML 20 ML VIAL IV ONE (11:41)
[2021-08-04] MEDS ORDERED: MIDAZOLAM 2 MG/2 ML VIAL ONE (11:41)
[2021-08-04] MEDS ORDERED: LIDOCAINE 1%-EPI 1:100,000 20 ML VIAL SQ ONE ×2 (12:07)
[2021-08-04 13:57] VITALS: BP 134/84
[2021-08-04 15:00] VITALS: PULSE 66; RESP 18
--- NOTE | 2021-08-09 06:40 | P.OP ---
Date of Procedure: 08/04/21 Description of Procedure: SURGEON: COURTNEY CHEN MD SENSOR TECHNICIAN: None. PREOPERATIVE DIAGNOSES: 1. Left posterior forearm mass, 9 cm 2. Body mass index of 43.7 to 33.0 3. Hypertensive heart disease. 4. Gastroesophageal reflux disease 5. Hyperlipidemia 6. Obstructive sleep apnea 7. Chronic obstructive pulmonary disease, steroid dependence 8. Obstructive uropathy 9. Atrial fibrillation 10. Congestive heart failure 11. Chronic pain syndrome 12. Gout 13. Anxiety disorder 14. Status post sleeve gastrectomy 15. Chronic anti-coagulant use 16. Morbid obesity due to excess calories 17. Pacemaker in-situ POSTOPERATIVE DIAGNOSES: 1. Deep subfascial left posterior forearm mass, 9 x 8 cm 2. Body mass index of 43.7 to 33.0 3. Hypertensive heart disease. 4. Gastroesophageal reflux disease 5. Hyperlipidemia 6. Obstructive sleep apnea 7. Chronic obstructive pulmonary disease, steroid dependence 8. Obstructive uropathy 9. Atrial fibrillation 10. Congestive heart failure 11. Chronic pain syndrome 12. Gout 13. Anxiety disorder 14. Status post sleeve gastrectomy 15. Chronic anti-coagulant use 16. Morbid obesity due to excess calories 17. Pacemaker in-situ PROCEDURES PERFORMED: 1. Excision of deep subfascial posterior left forearm mass, 9 x 8 cm 2. Intermediate closure left posterior forearm incision, 10 -cm Anesthesia: GETA, local Estimated Blood Loss (ml): 20 Pathology: other (forearm mass) Condition: stable Disposition: same day COMPLICATIONS: None. FINDINGS: 1. Complex mixed solid/cystic mass left proximal posterior forearm extending into the fascia, 9 x 8 cm 2. For pacemaker, bipolar device used. INDICATIONS: The patient is a 65-year-old male who presents with symptomatic large left proximal posterior forearm tumor. He reports growth and discomfort from the mass. Excision was described. Benefits and risks of surgical intervention were described including bleeding, infection. Informed consent was obtained. DESCRIPTION OR PROCEDURE: In the preoperative area, the area of concern was marked with indelible marker. Patient was brought into the operating room. After general induction, the left forearm was prepped and draped in a standard sterile fashion with ChloraPrep. The hand was covered Coban dressing and sterile drapes. Timeout protocol was confirmed with the surgical team regarding the patient's name, procedure to be performed including preoperative medications. DVT prophylaxis was confirmed with SCDs. A field block was placed of the left foreram. A posterior longitudinal 10-cm incision made over the prominence of the mass using #15 blade. Electro-Bovie cautery was initially used to enter the subcutaneous tissue and exchanged for a bipolar forceps for deeper dissection of the fascia and muscle. Blunt dissection was used to circumferential dissect the complex mixed solid/cystic mass that extended into the fascia of the left posterior forearm. The tumor was removed in total. The tumor was measured of 6-cm in diameter. Hemostasis was excellent. 0 Vicryl was placed for the deep subcutaneous tissue followed by 3-0 Vicryl for the superficial subcutaneous tissue and 4-0 Monocryl for the dermis in a running subcuticular fashion. The skin was cleansed and Exofin tape with liquid was applied. The incision was covered with Optifoam dressing and Coban wild mild compression. At the end of the procedure, needle, sponge, and instrument count was verified correct by surgical clinical reviewer. Operative findings including postoperative care instructions were reviewed with the patient and family/friend at bedside. Plan - Discharge Summary Discharge Rx Participant: Yes New Discharge Prescriptions: New Acetaminophen Tab [Tylenol Tab] 1,000 mg PO Q6HR PRN #30 tablet PRN Reason: Pain Continue Tamsulosin HCl [Flomax] 0.4 mg PO BID Simvastatin 40 mg PO HS Finasteride 5 mg PO HS Carvedilol [Coreg] 25 mg PO AC-BID Sotalol HCl [Betapace] 120 mg PO BID Albuterol Nebulized [Ventolin Nebulized] 2.5 mg INHALATION DAILY PRN PRN Reason: Shortness Of Breath Albuterol Sulfate [Proair Hfa] 2 puff INHALATION RT-BID PRN PRN Reason: Shortness Of Breath tiZANidine [Zanaflex] 2 mg PO BID HYDROcodone/APAP 10-325MG [[place] 10-325] 1 tab PO BID PRN PRN Reason: Pain Sacubitril/Valsartan [Entresto 97 mg-103 mg Tablet] 1 each PO BID Furosemide [Lasix] 40 mg PO DAILY Zolpidem [Ambien] 5 mg PO HS PRN PRN Reason: Insomnia Gabapentin [Neurontin] 300 mg PO TID Omeprazole 40 mg PO DAILY #90 capsule. bisacodyL [Dulcolax] 5 mg PO DAILY PRN #10 tablet. PRN Reason: Constipation Apixaban [Eliquis] 5 mg PO BID allopurinoL [Zyloprim] 300 mg PO DAILY Albuterol Nebulized [Ventolin Nebulized] 1.25 mg INHALATION Q6H Albuterol Inhaler [Ventolin Hfa Inhaler] 1 puff INHALATION RT-TID Discharge Medication List Tamsulosin HCl [Flomax] 0.4 mg PO BID 04/06/15 [History] Finasteride 5 mg PO HS 04/14/16 [History] Simvastatin 40 mg PO HS 04/14/16 [History] Carvedilol [Coreg] 25 mg PO AC-BID 04/18/16 [History] Sotalol HCl [Betapace] 120 mg PO BID 05/17/16 [History] Albuterol Nebulized [Ventolin Nebulized] 2.5 mg INHALATION DAILY PRN 09/29/16 [History] Albuterol Sulfate [Proair Hfa] 2 puff INHALATION RT-BID PRN 11/13/17 [History] HYDROcodone/APAP 10-325MG [[place] 10-325] 1 tab PO BID PRN 01/07/18 [History] tiZANidine [Zanaflex] 2 mg PO BID 01/07/18 [History] Furosemide [Lasix] 40 mg PO DAILY 05/30/18 [History] Sacubitril/Valsartan [Entresto 97 mg-103 mg Tablet] 1 each PO BID 05/30/18 [History] Gabapentin [Neurontin] 300 mg PO TID 05/21/19 [History] Zolpidem [Ambien] 5 mg PO HS PRN 05/21/19 [History] Omeprazole 40 mg PO DAILY #90 capsule. 05/26/19 [Rx] bisacodyL [Dulcolax] 5 mg PO DAILY PRN #10 tablet. 08/20/19 [Rx] Apixaban [Eliquis] 5 mg PO BID 07/28/20 [History] allopurinoL [Zyloprim] 300 mg PO DAILY 10/05/20 [History] Albuterol Inhaler [Ventolin Hfa Inhaler] 1 puff INHALATION RT-TID 08/02/21 [History] Albuterol Nebulized [Ventolin Nebulized] 1.25 mg INHALATION Q6H 08/02/21 [History] Acetaminophen Tab [Tylenol Tab] 1,000 mg PO Q6HR PRN #30 tablet 08/04/21 [Rx] Follow up Appointment(s)/Referral(s): Courtney Chen MD [STAFF PHYSICIAN] - 08/09/21 11:00 am Patient Instructions/Handouts: *Surgery [facility] - (Anesthesia) Discharge Instructions Outpatient Surgery, Dermal Cyst Excision (PRE) Activity/Diet/Wound Care/Special Instructions: Start blood thinner 08/06/21. DO NOT REMOVE DRESSING. Keep dressings dry. Use saran wrap to cover your dressing. Dressing to be removed in office, Sunday08/09/21 Discharge Disposition: HOME SELF-CARE
== END 2021-08-04 15:41 | disposition home or self-care (01) ==
LOC: OR 09:34
PROVIDERS: ATTEND Surgery Plastic and Reconstructive Surgery
DX: D18.01 Hemangioma of skin and subcutaneous tissue (principal); I82.602 Acute embolism and thrombosis of unspecified veins of left upper extremity; J44.9 Chronic obstructive pulmonary disease, unspecified; Z79.52 Long term (current) use of systemic steroids; I48.91 Unspecified atrial fibrillation; J45.909 Unspecified asthma, uncomplicated; K21.9 Gastro-esophageal reflux disease without esophagitis; E78.5 Hyperlipidemia, unspecified; M19.90 Unspecified osteoarthritis, unspecified site; I11.0 Hypertensive heart disease with heart failure; G47.33 Obstructive sleep apnea (adult) (pediatric); N13.9 Obstructive and reflux uropathy, unspecified; G89.4 Chronic pain syndrome; I50.9 Heart failure, unspecified; M10.9 Gout, unspecified; F41.9 Anxiety disorder, unspecified; E66.01 Morbid (severe) obesity due to excess calories; Z68.42 Body mass index [BMI] 45.0-49.9, adult; N40.0 Benign prostatic hyperplasia without lower urinary tract symptoms; M41.9 Scoliosis, unspecified; Z95.810 Presence of automatic (implantable) cardiac defibrillator; Z98.84 Bariatric surgery status; Z90.49 Acquired absence of other specified parts of digestive tract; Z95.0 Presence of cardiac pacemaker; Z98.890 Other specified postprocedural states; Z87.891 Personal history of nicotine dependence; Z80.42 Family history of malignant neoplasm of prostate; Z80.1 Family history of malignant neoplasm of trachea, bronchus and lung; Z83.3 Family history of diabetes mellitus; Z82.49 Family history of ischemic heart disease and other diseases of the circulatory system; Z82.61 Family history of arthritis; Z79.01 Long term (current) use of anticoagulants; Z79.899 Other long term (current) drug therapy
CPT/HCPCS: 88305; 25073; J2250; J1100; J0690; J2405; J3010; J2704; J1644

== ENCOUNTER → 2022-06-13 | Outpatient (CLI) | payer MEDICARE, OTHER | END | disposition home or self-care (01) | LOC: CPPFTMAIN 07:22 | PROVIDERS: ATTEND Internal Medicine Cardiovascular Disease | DX: Z51.81 Encounter for therapeutic drug level monitoring (principal); Z79.899 Other long term (current) drug therapy | CPT/HCPCS: 94060; 94726; 94729 ==

== ENCOUNTER → 2022-07-21 | Outpatient (CLI) | payer MEDICARE, OTHER ==
--- NOTE | 2022-07-21 18:00 | CA ---
Transthoracic Echo Report Name: Bandar Moreno Age: 66 Gender: M : 1955 Exam Date: 07/21/2022 13:56 Exam Location: [facility] Ht (in): 72 Wt (lb): 255 Ordering Physician: Dung Holcomb Attending/Referring Phys: Assistant Professor Of Art Joanna Canchola RDCS Procedure CPT: Indications: I47.2 Ventricular tachycardia Cardiac Hx: Technical Quality: Good Contrast 1: Total Dose (mL): Contrast 2: Total Dose (mL): MEASUREMENTS (Male / Female) Normal Values 2D ECHO LV Diastolic Diameter PLAX 5.1 cm 4.2 - 5.9 / 3.9 - 5.3 cm LV Systolic Diameter PLAX 4.2 cm IVS Diastolic Thickness 1.5 cm 0.6 - 1.0 / 0.6 - 0.9 cm LVPW Diastolic Thickness 1.6 cm 0.6 - 1.0 / 0.6 - 0.9 cm LV Relative Wall Thickness 0.6 RV Internal Dim ED PLAX 2.6 cm LA Systolic Diameter LX 3.4 cm 3.0 - 4.0 / 2.7 - 3.8 cm LA Volume 180.3 cm??? 18 - 58 / 22 - 52 cm??? M-MODE Aortic Root Diameter MM 4.0 cm LA Systolic Diameter MM 3.3 cm LA Ao Ratio MM 0.8 MV E Point Septal Separation 1.5 cm AV Cusp Separation MM 2.1 cm DOPPLER MV Area PHT 2.8 cm??? Mitral E Point Velocity 60.8 cm/s Mitral A Point Velocity 63.7 cm/s Mitral E to A Ratio 1.0 MV Deceleration Time 274.3 ms MV E' Velocity 4.3 cm/s Mitral E to MV E' Ratio 14.2 TR Peak Velocity 220.4 cm/s TR Peak Gradient 19.4 mmHg FINDINGS Left Ventricle Left ventricular ejection fraction is estimated at 40-45%.Anterior, Septel Hypokineis Left ventricular cavity size normal. Right Ventricle Normal right ventricular size and function. Right Atrium Normal right atrial size. Left Atrium Severely increased left atrial volume. Severely increased left atrial area. Mitral Valve Structurally normal mitral valve. Mild mitral regurgitation. Aortic Valve Trileaflet aortic valve. Tricuspid Valve Structurally normal tricuspid valve. Trace to mild tricuspid regurgitation. Pulmonic Valve Structurally normal pulmonic valve. Pericardium Normal pericardium. Aorta Normal size aortic root and proximal ascending aorta. CONCLUSIONS Impaired LV function was EF between 40-45% Previewed by: Dr. Sha Arthur MD (Electronically Signed) Final Date: 21 July 2022 17:59
== END | disposition home or self-care (01) ==
LOC: RADECHMAIN 13:46
PROVIDERS: ATTEND Internal Medicine Cardiovascular Disease
DX: I47.2 Ventricular tachycardia (principal); I42.8 Other cardiomyopathies; I50.20 Unspecified systolic (congestive) heart failure; I25.10 Atherosclerotic heart disease of native coronary artery without angina pectoris; E78.5 Hyperlipidemia, unspecified
CPT/HCPCS: 93306

== ENCOUNTER → 2022-07-21 | Outpatient (CLI) | payer MEDICARE, OTHER ==
--- NOTE | 2022-07-22 10:42 | XR ---
EXAMINATION TYPE: XR shoulder complete LT DATE OF EXAM: 07/21/2022 2:50 PM INDICATION: Patient age:Male; 66 years old; Reason for study: M25.512 Pain in left shoulder; COMPARISON: Chest radiograph 01/10/2018 TECHNIQUE: The left shoulder was examined in AP, internally rotated and scapular Y projections. . FINDINGS: No evidence of acute osseous pathology, joint dislocation, or soft tissue swelling. The remaining por tions of the visualized chest are unremarkable. Left reverse total shoulder arthroplasty. Hardware appears intact. Dystrophic calcifications seen in the acromion. IMPRESSION: 1. Irregular morphology to the acromion consider CT examination of the left shoulder to rule out acr omion fracture in the setting of reverse total shoulder arthroplasty changes with altered stress mech anics on the acromion. 2. Left reverse shoulder total arthroplasty with hardware intact.
== END | disposition home or self-care (01) ==
LOC: RADXRMAIN 13:50
PROVIDERS: ATTEND Nurse Practitioner Family
DX: M12.812 Other specific arthropathies, not elsewhere classified, left shoulder (principal)

== ENCOUNTER → 2022-08-21 | Outpatient (CLI) | payer MEDICARE, OTHER ==
[2022-08-21 13:45] VITALS: BP 147/80; PULSE 70; RESP 18; TEMP 98.4
--- NOTE | 2022-08-21 14:44 | P.PAINPG ---
Objective - Vital Signs Vital signs: Intake & Output 08/20/22 08/21/22 08/21/22 18:59 06:59 18:59 Weight 115.666 kg PQRS Measure Charge Sheet Comment: A 66 yr old male with a history of severe and chronic low back pain secondary to lumbar degenerative disc diseases and lumbar spondylosis with facet arthropathy without myelopathy presents today for LBP. Pain level is currently at 1/10 in intensity, constant, localized in his lower lumbar spine, achy in charcter w shooting towards the L buttock and LLE. Pain is provoked ashigh as 5/10 by walking/sitting for periods of 20 min or more. Pain is alleviated with PT x 6 wks in 2019, massage integrated w PT, chiropractic treatments years ago, heat, medications (Mobile), topicals, repositioning and rest. Interventional pain procedures completed include MBB L3-L5 x 1 (2019) Patient is currently on Mobile prn Patient denies any side effects of the medication(s), denies excessive drowsiness or sleepiness, denies suicidal ideation and reports that the current pain medication is helping to control the pain and improve activities of daily living. Patient denies any motor or sensory deficits. Patient denies any fever or night sweats, denies any change in the bowel movements or urination. Physical Examination: -Constitutional: Cooperative. Not in acute distress . - Neurologic: Cranial nerve II to XII intact. No focal neurological deficits. - Psychatric: Alert & oriented x 3. Matching mood & appropriate affect. Judgment and insight intact. - Musculoskeletal: Cervical spine: Muscle bulk/ tone/ strength in the bilateral upper extremities normal Vertebral body tenderness to palpation over Spurling test positive Distraction test positive Facet loading test positive Thoracic spine Muscle bulk / tone/ strength in the bilateral paraspinal muscles normal Vertebral body tender to palpation over Facet loading test positive Lumbar spine: Motor bulk/ tone/ strength lower extremities , thigh and legs : 5/5 Deep tendon reflexes : Normal Knee Jerk. Normal Ankle Jerk . Vertebral body tenderness to palpation over L5 Lumbar Facet Loading Test positive Straight Leg Raise: positive at 30 degrees right side/ left side Gaenslen's Test positive Sacral spine : Severe tenderness over the Sacroiliac joint: right side / left side Range of motion: Flexion of the lumbar spine <60 degrees Range of motion: Extension of the lumbar spine <20 degrees Gaenslen's Test positive Juan's Test positive Epifanio test: positive right side / left side Thigh Thrust Test Sacral Thrust Test Assessment and plan: Chronic low back pain secondary to lumbar degenerative disc disease , lumbar spondylosis with facet arthropathy without myelopathy Recommendation of GLORIA L5-S1. May need a series of injections, up to 3 per 6 mo period, for optimal pain relief. Risks, benefits of procedure discussed and pt verbalized understanding. Admits to anticoagulant use or medical history of diabetes. Protocol for discontinuation/ continuation of medications david procedure discussed. Need medical clearance from Dr Holcomb from [place] (per pt). All patient questions answered I have spent less than 30 minutes on patient care today. Dr Kimbrough was available by phone for the evaluation of this patient. The time was used to review the medical records including relevant urine studies and Prescription history (MAPs), review of the available imaging, evaluation and examination of the patient, coordination of care with the medical staff and if applicable referring physicians, as well as creation of the medical record - Pain Location Bilateral Lower Back Non-Pharmacological Interventions: Chiropractic Treatment, Heat, Inactivity, Massage, Physical Therapy, Position/Reposition, Sitting Pharmacological Interventions: Block, Epidural, Scheduled Medication, Topical Medication PQRS Narrative: Smoking Status Former smoker Hx Alcohol Use (MH) Yes Home Medications: Ambulatory Orders Tamsulosin HCl [Flomax] 0.4 mg PO BID 04/06/15 Finasteride 5 mg PO HS 04/14/16 Simvastatin 40 mg PO HS 04/14/16 Carvedilol [Coreg] 25 mg PO AC-BID 04/18/16 Sotalol HCl [Betapace] 120 mg PO BID 05/17/16 HYDROcodone/APAP 10-325MG [Mobile 10-325] 1 tab PO BID PRN 01/07/18 tiZANidine [Zanaflex] 2 mg PO BID 01/07/18 Furosemide [Lasix] 40 mg PO DAILY 05/30/18 Sacubitril/Valsartan [Entresto 97 mg-103 mg Tablet] 1 each PO BID 05/30/18 Gabapentin [Neurontin] 300 mg PO TID 05/21/19 Zolpidem [Ambien] 5 mg PO HS PRN 05/21/19 Omeprazole 40 mg PO DAILY #90 capsule. 08/05/19 Apixaban [Eliquis] 5 mg PO BID 07/28/20 allopurinoL [Zyloprim] 300 mg PO DAILY 10/05/20 Albuterol Inhaler [Ventolin Hfa Inhaler] 1 puff INHALATION BID PRN 08/02/21 Albuterol Nebulized [Ventolin Nebulized (Accuneb)] 1.25 mg INHALATION Q6H 08/02/21 bisacodyL [Dulcolax] 5 mg PO TID PRN 10/25/21 Controlled Substance Measures - Controlled Substance Measures Is patient prescribed a controlled substance at discharge?: No
== END ==
LOC: PNWHC3 13:11
PROVIDERS: ATTEND Specialist
DX: M47.816 Spondylosis without myelopathy or radiculopathy, lumbar region (principal); G89.29 Other chronic pain; M51.36 Other intervertebral disc degeneration, lumbar region; Z87.891 Personal history of nicotine dependence; Z91.048 Other nonmedicinal substance allergy status
CPT/HCPCS: 99211

== ENCOUNTER 2022-10-12 12:00 | Day surgery (SDC) | payer MEDICARE, OTHER ==
[2022-10-10 10:55] VITALS: BMI 35.2
[~2022-10-12 12:00] MED LIST changes: -ACETAMINOPHEN TAB 500 MG TAB PO STA; -DEXAMETHASONE SOD PHOSPHATE 4 MG/ML 1 ML VIAL IV ONE; -HEPARIN SODIUM,PORCINE/PF 5,000 UNIT/0.5 ML SYRINGE SQ PRN; -HYDROmorphone 0.5 MG/0.5 ML SYRINGE IVP PRN; +LIDOCAINE 1% (10MG/ML) FOR IV START INTRADERMA PRN; -MELOXICAM 7.5 MG TAB PO SCH; -ONDANSETRON 4 MG/2 ML VIAL IVP ONE; -Pre Op ABX Message 1 EACH MISC MISCELLANE ONE
[2022-10-12 13:07] VITALS: RESP 18; TEMP 97.9
[2022-10-12] MEDS ORDERED: MIDAZOLAM 2 MG/2 ML VIAL ONE (13:36)
[2022-10-12] MEDS ORDERED: IOPAMIDOL M200 10 ML VIAL ONE (13:36)
[2022-10-12] MEDS ORDERED: fentaNYL (PF) 50 MCG/ML 2 ML AMP ONE (13:36)
[2022-10-12] MEDS ORDERED: methylPREDNISolone ACETATE 40 MG/ML 1 ML VIAL ONE (13:36)
--- NOTE | 2022-10-12 14:02 | P.PCN ---
Date of Procedure: 10/12/22 Procedure(s) Performed: PREOPERATIVE DIAGNOSIS: 1- Lumbar Degenerative Disc Diseases 2-Lumbar spondylosis with Facet arthropathy without myelopathy. POSTOPERATIVE DIAGNOSIS: Same as preop diagnosis. PROCEDURE 1. Lumbar epidural steroid injection under fluoroscopic guidance at the L5-S1 level. (Fluoroscopy imaging was available in radiology department) 2. Lumbar epidurogram. ANESTHESIA: moderate sedation with intravenous Versed 2 mg ,and fentanyle 50 Mcg Sedation start time : 1346 Sedation end time : 1359 EBL: Minimal PROCEDURE INDICATION: The patient with low back pain and radiculitis symptoms unresponsive to conservative treatment. Fluoroscopy was used to optimize visualization of the needle placement and to maximize safety. PROCEDURE DESCRIPTION / TECHNIQUE: The patient was seen and identified in the preoperative area. Risks, benefits, complications including but not limited to infections ,bleeding ,allergic reaction to the medications ,nerve damage and not complete pain releife , and alternatives were discussed with the patient. The patient agreed to proceed with the procedure and signed the consent. IV was started, and vital signs were stable. Patient was taken to the OR and time out was completed. The patient was placed in the prone position on procedure table and a pillow was placed under the abdomen to reduce lumbar lordosis. The lumbosacral area was prepped and draped in the usual sterile fashion.ere closely monitored during the procedure. Conscious sedation was used during the procedure to decrease patients anxiety. Vital signs was monitered during the entire procedure. Using anterior-posterior fluoroscopy, the L5-S1 interlaminar space was identified and the skin over this site was marked and then infiltrated with 1% lidocaine subcutaneously. Subsequently, a 20-gauge Tuohy epidural needle was inserted and advanced toward the epidural space using the ``Loss of resistance technique and guided by AP and lateral fluoroscopy. The correct needle position in the epidural space was verified with the injection of 2 mL of the water soluble contrast dye Isovue 200 contrast and observing an excellent epidurogram with the epidural spread of the dye, after negative aspiration for blood and CSF and in the absence of paresthesias. Again after negative aspiration, a 6 ml mixture containing 40 mg of Depo-medrol ( Preservetive Free ), and 2 ml of preservative free Normal Saline, and 2 ml of preservative free lidocaine 1% solution was injected and a washout of epidurogram was seen. Needle was withdrawn intact, skin was cleansed, and bandages were applied. COMPLICATIONS: None DISPOSITION / PLANS: The patient was placed in a supine position and transferred to the recovery area in a stable condition for observation. There was no evidence of lower extremity motor or sensory deficit after the procedure. Patient was discharged from the recovery room after meeting discharge criteria. Home discharge instructions were given to the patient by the staff. The patient was reexamined prior to discharge. The patient will schedule a follow up in the clinic in 2-4 weeks. note= patient take Eliquis and it was held for 72 hours
--- NOTE | 2022-10-12 14:17 | FL ---
EXAMINATION TYPE: FL guided pain mgmt statistic DATE OF EXAM: 10/12/2022 HISTORY: Fluoroscopy time 15 seconds of fluoroscopy provided. IMPRESSION: 1. Fluoroscopy time.
[2022-10-12 14:38] VITALS: BP 143/60; PULSE 66
[2022-10-12] MEDS ORDERED: IV FLUID CONTINUATION 1,000 ML IV ONE (14:38)
== END 2022-10-12 14:42 | disposition home or self-care (01) ==
LOC: ORPAIN 12:00
PROVIDERS: ATTEND Specialist
DX: M51.16 Intervertebral disc disorders with radiculopathy, lumbar region (principal); M47.26 Other spondylosis with radiculopathy, lumbar region
CPT/HCPCS: 62323; 99152; J2250; J1030; J3010; Q9966

== ENCOUNTER → 2022-11-02 | Outpatient (CLI) | payer MEDICARE, OTHER ==
[2022-11-02 10:36] VITALS: BP 157/88; PULSE 64; RESP 16; TEMP 98
--- NOTE | 2022-11-02 14:44 | P.PAINPG ---
PQRS Measure Charge Sheet Comment: A 67 yr old male w at side with a history of severe and chronic low back pain secondary to lumbar DDD and spondylosis with facet arthropathy without myelopathy presents today for evaluation s/p GLORIA L5-S1. Pt states he experienced 50% pain relief x 1 wks s/p procedure. Pain level is provoked at 7/10 in intensity, constant, localized in the mid to lower lumbar spine, achy in character w shooting towards the BLEs. Pain is provoked by bending, lifting. Pain is alleviated with medications (Howes 10/325mg , Neurontin), injections, heat, PT in the past, home stretching regimen as tolerated, repositioning and rest. Interventional pain procedures completed include GLORIA L5-S1, BL MBB L3-L5 x1 Patient is currently on Howes 10/325mg, Neurontin Patient denies any side effects of the medication(s), denies excessive drowsiness or sleepiness, denies suicidal ideation and reports that the current pain medication is helping to control the pain and improve activities of daily living. Patient denies any motor or sensory deficits. Patient denies any fever or night sweats, denies any change in the bowel movements or urination. Physical Examination: -Constitutional: Cooperative. Not in acute distress . - Neurologic: Cranial nerve II to XII intact. No focal neurological deficits. - Psychatric: Alert & oriented x 3. Matching mood & appropriate affect. Judgment and insight intact. - Musculoskeletal: Cervical spine: Muscle bulk/ tone/ strength in the bilateral upper extremities normal Vertebral body tenderness to palpation over Spurling test positive Distraction test positive Facet loading test positive Thoracic spine Muscle bulk / tone/ strength in the bilateral paraspinal muscles normal Vertebral body tender to palpation over Facet loading test positive Lumbar spine: Motor bulk/ tone/ strength lower extremities , thigh and legs : 5/5 Deep tendon reflexes : Normal Knee Jerk. Normal Ankle Jerk . Vertebral body tenderness to palpation over L4, L5 Lumbar Facet Loading Test positive w lateral flexion Straight Leg Raise: positive at 30 degrees right side/ left side Gaenslen's Test positive Sacral spine : Severe tenderness over the Sacroiliac joint: right side / left side Range of motion: Flexion of the lumbar spine <60 degrees Range of motion: Extension of the lumbar spine <20 degrees Gaenslen's Test positive Epifanio test: positive right side / left side Thigh Thrust Test Sacral Thrust Test Assessment and plan: Chronic low back pain secondary to lumbar degenerative disc disease, spondylosis with facet arthropathy without myelopathy Pt agreeable to SCS implant. Viewed video on Nalu device. Script for behavioral health provided. Risks, benefits of procedure discussed and pt verbalized understanding. Denies anticoagulant use or medical history of diabetes. All patient questions answered I have spent less than 30 minutes on patient care today. Dr Kimbrough was available by phone for the evaluation of this patient. The time was used to review the medical records including relevant urine studies and Prescription history (MAPs), review of the available imaging, evaluation and examination of the patient, coordination of care with the medical staff and if applicable referring physicians, as well as creation of the medical record - Pain Location Lower Back Non-Pharmacological Interventions: Heat, Home Exercise, Inactivity, Physical Therapy, Position/Reposition, Stretching Pharmacological Interventions: Block, Epidural, PRN Medication, Scheduled Medication PQRS Narrative: Smoking Status Former smoker Hx Alcohol Use (MH) Yes Home Medications: Ambulatory Orders Tamsulosin HCl [Flomax] 0.4 mg PO BID 04/06/15 Simvastatin 40 mg PO HS 04/14/16 Carvedilol [Coreg] 25 mg PO AC-BID 04/18/16 HYDROcodone/APAP 10-325MG [Howes 10-325] 1 tab PO BID PRN 01/07/18 tiZANidine [Zanaflex] 2 mg PO BID 01/07/18 Furosemide [Lasix] 40 mg PO DAILY 05/30/18 Sacubitril/Valsartan [Entresto 97 mg-103 mg Tablet] 1 each PO BID 05/30/18 Gabapentin [Neurontin] 300 mg PO TID 05/21/19 Zolpidem [Ambien] 5 mg PO HS PRN 05/21/19 Omeprazole 40 mg PO DAILY #90 capsule. 05/26/19 Apixaban [Eliquis] 5 mg PO BID 07/28/20 allopurinoL [Zyloprim] 300 mg PO DAILY 10/05/20 Albuterol Inhaler [Ventolin Hfa Inhaler] 1 - 2 puff INHALATION BID PRN 08/02/21 Albuterol Nebulized [Ventolin Nebulized (Accuneb)] 1.25 mg INHALATION Q6H PRN 08/02/21 bisacodyL [Dulcolax] 5 mg PO TID PRN 10/25/21 Amiodarone [Cordarone] 200 mg PO DAILY 10/10/22 Finasteride [Proscar] 5 mg PO HS 10/10/22 Meloxicam [Mobic] 15 mg PO DAILY 10/10/22 Vitamin A Acetate [Vitamin A] 10,000 unit SL DAILY 10/10/22 Controlled Substance Measures - Controlled Substance Measures Is patient prescribed a controlled substance at discharge?: No
== END ==
LOC: PNWHC3 10:06
PROVIDERS: ATTEND Anesthesiology
DX: M47.816 Spondylosis without myelopathy or radiculopathy, lumbar region (principal); M51.36 Other intervertebral disc degeneration, lumbar region; Z87.891 Personal history of nicotine dependence
CPT/HCPCS: 99211

== ENCOUNTER 2023-01-10 08:30 | Day surgery (SDC) | payer MEDICARE, OTHER ==
--- NOTE | 2023-01-10 08:17 | P.GSHP ---
History of Present Illness H&P Date: 01/10/23 CHIEF COMPLAINT: Colon screen HISTORY OF PRESENT ILLNESS: The patient is a 67-year-old male who presents for colon screen. Lower endoscopy was offered for further evaluation and management. PAST MEDICAL HISTORY: Please see list. PAST SURGICAL HISTORY: Please see list. MEDICATIONS: Please see list. ALLERGIES: Please see list. SOCIAL HISTORY: No illicit drug use FAMILY HISTORY: No reports of Crohn disease or ulcerative colitis. REVIEW OF ORGAN SYSTEMS: CONSTITUTIONAL: No reports of fevers or chills. PHYSICAL EXAM: VITAL SIGNS: Stable GENERAL: Well-developed pleasant in no acute distress. HEENT: No scleral icterus. Extraocular movements grossly intact. Moist buccal mucosa. NECK: Supple without lymphadenopathy. CHEST: Unlabored respirations. Equal bilateral excursions. CARDIOVASCULAR: Regular rate and rhythm. Distal 2+ pulses. ABDOMEN: Soft, nontender, nondistended. MUSCULOSKELETAL: No clubbing, cyanosis, or edema. ASSESSMENT: 1. Colon screen. PLAN: 1. Recommend proceeding with a lower endoscopy Past Medical History Past Medical History: Atrial Fibrillation, Asthma, Heart Failure, COPD, GERD/Reflux, Hyperlipidemia, Hypertension, Osteoarthritis (OA), Prostate Disorder, Sleep Apnea/CPAP/BIPAP Additional Past Medical History / Comment(s): GOUT, scoliosis, ddd(neck),, back pain, neck problems-PINCHED NERVE, lumbar spine History of Any Multi-Drug Resistant Organisms: None Reported Date of last positivie culture/infection: 04/26/2016 MDRO Source:: Bilat Leg Past Surgical History: AICD, Bariatric Surgery, Bowel Resection, Cardiac Ablation, Orthopedic Surgery, Pacemaker, Tonsillectomy Additional Past Surgical History / Comment(s): CRISELDA AND PLATE IN ankle(left), vasectomy, ruptured bowel- colon resection - colostomy WITH reversal April 2016, COLONOSCOPY, EGD sleeve Gastrectomy 08-18-19, micheal shoulder replacement herina repair x2 umbilical? Past Anesthesia/Blood Transfusion Reactions: No Reported Reaction Additional Past Anesthesia/Blood Transfusion Reaction / Comment(s): . Type of Cardiac Device: Permanent Pacemaker, AICD Device Placement Date:: February 2018 Smoking Status: Former smoker - Past Family History Father Family Medical History: Cancer Additional Family Medical History / Comment(s): PROSTATE AND LUNG CANCER, IRREGULAR HEART BEAT Mother Family Medical History: Diabetes Mellitus, Hypertension, Osteoarthritis (OA) Medications and Allergies Home Medications Medication Instructions Recorded Confirmed Type Tamsulosin HCl [Flomax] 0.4 mg PO BID 04/06/15 01/05/23 History Simvastatin 40 mg PO HS 04/14/16 01/05/23 History Carvedilol [Coreg] 25 mg PO AC-BID 04/18/16 01/05/23 History HYDROcodone/APAP 10-325MG [Start 1 tab PO BID PRN 01/07/18 01/05/23 History 10-325] tiZANidine [Zanaflex] 2 mg PO BID 01/07/18 01/05/23 History Furosemide [Lasix] 40 mg PO DAILY 05/30/18 01/05/23 History Sacubitril/Valsartan [Entresto 97 1 each PO BID 05/30/18 01/05/23 History mg-103 mg Tablet] Gabapentin [Neurontin] 300 mg PO TID 05/21/19 01/05/23 History Zolpidem [Ambien] 5 mg PO HS PRN 05/21/19 01/05/23 History Omeprazole 40 mg PO DAILY #90 capsule. 05/26/19 01/05/23 Rx Apixaban [Eliquis] 5 mg PO BID 07/28/20 01/05/23 History allopurinoL [Zyloprim] 300 mg PO DAILY 10/05/20 01/05/23 History Albuterol Inhaler [Ventolin Hfa 1 - 2 puff INHALATION BID PRN 08/02/21 01/05/23 History Inhaler] Albuterol Nebulized [Ventolin 1.25 mg INHALATION Q6H PRN 08/02/21 01/05/23 History Nebulized (Accuneb)] bisacodyL [Dulcolax] 5 mg PO TID PRN 10/25/21 01/05/23 History Amiodarone [Cordarone] 200 mg PO DAILY 10/10/22 01/05/23 History Finasteride [Proscar] 5 mg PO HS 10/10/22 01/05/23 History Meloxicam [Mobic] 15 mg PO DAILY 10/10/22 01/05/23 History Vitamin A Acetate [Vitamin A] 10,000 unit SL DAILY 10/10/22 01/05/23 History Allergies Allergy/AdvReac Type Severity Reaction Status Date / Time No Known Allergies Allergy Verified 01/05/23 10:59
[2023-01-10 09:18] VITALS: TEMP 97.9
[2023-01-10] MEDS ORDERED: PROPOFOL 10 MG/ML 20 ML VIAL IV ONE (09:50)
[2023-01-10] MEDS ORDERED: LIDOCAINE 2% INJ 20 MG/ML (2 ML VIAL) ONE (09:50)
[2023-01-10 10:19] VITALS: RESP 16
--- NOTE | 2023-01-10 10:41 | P.PCN ---
Date of Procedure: 01/10/23 Description of Procedure: PREOPERATIVE DIAGNOSIS: Gastrointestinal bleeding with hematochezia History of diverticulosis with partial colectomy, sigmoid colon Chronic anticoagulant POSTOPERATIVE DIAGNOSIS: Severe sigmoid diverticulosis Partial colectomy, sigmoid OPERATION: Colonoscopy to the cecum, ileocecal valve and appendiceal orifice SURGEON: Courtney Chen MD. ANESTHESIA: MAC. INDICATIONS: The patient is a 67-year-old female who presents with gastrointestinal bleeding. Benefits and risks were described and informed consent was obtained. DESCRIPTION OF PROCEDURE: The patient had undergone MiraLAX. The patient had been brought into the operating room and laid in the left lateral decubitus position. After adequate intravenous sedation, the rectum was examined with 2% lidocaine jelly. External internal hemorrhoids without bleeding was identified. An Olympus colonoscope was gently advanced to the cecum with clear visualization of the ileocecal valve including appendiceal orifice. The prep was fair. Severe sigmoid diverticulosis was encountered without active bleeding. The sigmoid colon anastomosis was identified at 30 cm from the anal verge. No active colonic bleeding was found. No intraluminal masses were identified within the colon. No colonic polyps were found. No evidence of focal colitis was found. Retroflexion of the scope demonstrated grade 2 internal hemorrhoids without recent inflammation. The colon was desufflated. The patient had tolerated the procedure well. Withdrawal time was over 6 minutes. FINDINGS: Aronchick preparation quality scale 3 (1-5) Internal hemorrhoids, grade 2 No thrombosed hemorrhoid identified. No arteriovenous malformations. No adenomatous polyps. No focal colitis. Moderate to severe diverticulosis Sigmoid colon anastomosis at 30 cm from the anal verge, without bleeding or inflammation RECOMMENDATIONS: Recommend repeat colonoscopy in 5 years, 2027 Patient high risk for bleed due to diverticulosis with chronic anticoagulation Plan - Discharge Summary Discharge Rx Participant: No New Discharge Prescriptions: Continue Tamsulosin HCl [Flomax] 0.4 mg PO BID Simvastatin 40 mg PO HS Carvedilol [Coreg] 25 mg PO AC-BID tiZANidine [Zanaflex] 2 mg PO BID HYDROcodone/APAP 10-325MG [Valera 10-325] 1 tab PO BID PRN PRN Reason: Pain Sacubitril/Valsartan [Entresto 97 mg-103 mg Tablet] 1 each PO BID Furosemide [Lasix] 40 mg PO DAILY Zolpidem [Ambien] 5 mg PO HS PRN PRN Reason: Insomnia Gabapentin [Neurontin] 300 mg PO TID Omeprazole 40 mg PO DAILY #90 capsule. Apixaban [Eliquis] 5 mg PO BID allopurinoL [Zyloprim] 300 mg PO DAILY Albuterol Nebulized [Ventolin Nebulized (Accuneb)] 1.25 mg INHALATION Q6H PRN PRN Reason: Shortness Of Breath Or Wheezing Albuterol Inhaler [Ventolin Hfa Inhaler] 1 - 2 puff INHALATION BID PRN PRN Reason: sob Amiodarone [Cordarone] 200 mg PO DAILY Meloxicam [Mobic] 15 mg PO DAILY Finasteride [Proscar] 5 mg PO HS Vitamin A Acetate [Vitamin A] 10,000 unit SL DAILY bisacodyL [Dulcolax] 5 mg PO TID PRN PRN Reason: Constipation Discharge Medication List Tamsulosin HCl [Flomax] 0.4 mg PO BID 04/06/15 [History] Simvastatin 40 mg PO HS 04/14/16 [History] Carvedilol [Coreg] 25 mg PO AC-BID 04/18/16 [History] HYDROcodone/APAP 10-325MG [Valera 10-325] 1 tab PO BID PRN 01/07/18 [History] tiZANidine [Zanaflex] 2 mg PO BID 01/07/18 [History] Furosemide [Lasix] 40 mg PO DAILY 05/30/18 [History] Sacubitril/Valsartan [Entresto 97 mg-103 mg Tablet] 1 each PO BID 05/30/18 [History] Gabapentin [Neurontin] 300 mg PO TID 05/21/19 [History] Zolpidem [Ambien] 5 mg PO HS PRN 05/21/19 [History] Omeprazole 40 mg PO DAILY #90 capsule. 05/26/19 [Rx] Apixaban [Eliquis] 5 mg PO BID 07/28/20 [History] allopurinoL [Zyloprim] 300 mg PO DAILY 10/05/20 [History] Albuterol Inhaler [Ventolin Hfa Inhaler] 1 - 2 puff INHALATION BID PRN 08/02/21 [History] Albuterol Nebulized [Ventolin Nebulized (Accuneb)] 1.25 mg INHALATION Q6H PRN 08/02/21 [History] bisacodyL [Dulcolax] 5 mg PO TID PRN 10/25/21 [History] Amiodarone [Cordarone] 200 mg PO DAILY 10/10/22 [History] Finasteride [Proscar] 5 mg PO HS 10/10/22 [History] Meloxicam [Mobic] 15 mg PO DAILY 10/10/22 [History] Vitamin A Acetate [Vitamin A] 10,000 unit SL DAILY 10/10/22 [History] Follow up Appointment(s)/Referral(s): Courtney Chen MD [STAFF PHYSICIAN] - As Needed Patient Instructions/Handouts: Diverticulosis (GEN), Diverticulosis Diet (GEN) Activity/Diet/Wound Care/Special Instructions: Resume blood thinner Repeat colonoscopy in 5 years, 2027 Discharge Disposition: HOME SELF-CARE
[2023-01-10 10:46] VITALS: BP 149/84; PULSE 64
== END 2023-01-10 10:17 | disposition home or self-care (01) ==
LOC: ORWHC2ENDO 08:30
PROVIDERS: ATTEND Surgery Plastic and Reconstructive Surgery
DX: K57.30 Diverticulosis of large intestine without perforation or abscess without bleeding (principal); E78.5 Hyperlipidemia, unspecified; G47.30 Sleep apnea, unspecified; I11.0 Hypertensive heart disease with heart failure; I50.9 Heart failure, unspecified; J44.9 Chronic obstructive pulmonary disease, unspecified; K21.9 Gastro-esophageal reflux disease without esophagitis; M10.9 Gout, unspecified; M19.90 Unspecified osteoarthritis, unspecified site
CPT/HCPCS: 45378; J2704; J2001

== ENCOUNTER → 2023-01-11 | Outpatient (CLI) | payer MEDICARE, OTHER ==
--- NOTE | 2023-01-11 09:31 | CT ---
EXAMINATION TYPE: CT lumbar spine wo con CT DLP: 1777.6 mGycm, Automated exposure control for dose reduction was used. DATE OF EXAM: 01/11/2023 9:08 AM COMPARISON: CT lumbar spine 05/16/2021. CLINICAL INDICATION:Male, 67 years old with history of M54.50 LOW BACK PAIN, UNSPECIFIED; PHH, Chroni c low back pain, no injury. TECHNIQUE: Multiple axial images were obtained from the midportion of T11 through the sacroiliac cindy nts. Soft tissue and bone windows in coronal and sagittal planes were obtained and reviewed. FINDINGS: Alignment: There are 5 lumbar type vertebral bodies. Similar moderate levocurvature of the lumbar spi ne with apex at L3. Bone: No evidence of fracture is identified. Discs: T12-L1: Disc space loss and vacuum disc disease. No significant central canal stenosis. The neural fo ramen are patent bilaterally. L1-L2: Mild disc space loss with vacuum disc disease. No significant central canal stenosis. Bilatera l facet arthropathy with mild bilateral neural foraminal stenosis. L2-L3: Severe degenerative disc disease with narrowing, vacuum disc disease, endplate sclerosis, and anterior and posterior osteophytosis. Disc osteophyte complex demonstrated resulting in mild central canal stenosis. Bilateral facet arthropathy with severe right and mild left neural foraminal stenosis . L3-L4: Severe degenerative disc space narrowing with vacuum disc disease and endplate sclerosis. Ante rior and posterior ossified steatosis demonstrated. Disc osteophyte complex redemonstrated resulting in moderate central canal stenosis. Severe facet arthropathy with moderate left and severe right neur al foraminal stenosis. L4-L5: Severe degenerative disc space disease with narrowing, vacuum disc disease, endplate stenosis , and anterior and posterior osteophytosis. Disc osteophyte complex redemonstrated resulting in moder ate central canal stenosis. Severe facet joint arthropathy with severe bilateral neural foraminal rich nosis. L5-S1: Severe degenerative disc disease with endplate sclerosis, anterior and posterior osteophytosis , and vacuum disc disease. Mild effacement of the ventral thecal sac. Severe facet joint arthropathy with moderate left and mild right neural foraminal stenosis. Other: Atherosclerotic calcification of the aorta and its branches. No abdominal aortic aneurysm visu alized. Postsurgical changes from gastric sleeve. Partial visualization of cardiac pacemaking leads. IMPRESSION: 1. No evidence of fracture of the lumbar spine. 2. Overall similar scoliotic curvature with multilevel degenerative disc disease and osteoarthritic c hanges with multilevel central canal and neural foraminal stenosis as described above.
[2023-01-11 14:20] LABS: HCT 37.4 % (39.6-50.0); MCH 31.7 pg (27.0-32.0); MCHC 32.1 g/dL (32.0-37.0); MCV 98.7 fL (80.0-97.0); Mean Platelet Volume 10.9 fL (9.5-12.2); NRBC Per 100 WBC 0 /100 WBCS (0.0-0.0); Platelet Count 179 X 10*3/uL (140-440); RBC 3.79 X 10*6/uL (4.40-5.60); RDW 14.1 % (11.5-14.5); WBC 5.44 X 10*3/uL (4.50-10.00)
[2023-01-11 15:42] LABS: ALT 23 U/L (10-49); AST 22 U/L (14-35); African American GFR (CKD) 78.1 (60.0-200.0); Albumin 4.3 g/dL (3.8-4.9); Albumin/Globulin Ratio 2.21 (1.60-3.17); Alkaline Phosphatase 119 U/L (41-126); BUN/Creat Ratio 18.29 Ratio (12.00-20.00); Blood Urea Nitrogen 20.3 mg/dL (9.0-27.0); Calcium 8.9 mg/dL (8.7-10.3); Carbon Dioxide 28.8 mmol/L (20.0-27.5); Chloride 104 mmol/L (96-109); Chol/HDL Ratio 2.75 Ratio; Glucose 98 mg/dL (70-110); LDL Cholesterol,Calculated 82.2 mg/dL (0.0-131.0); Non-African American GFR(CKD) 67.4 (60.0-200.0); Potassium 4.4 mmol/L (3.5-5.5); Sodium 141 mmol/L (135-145); Total Protein 6.3 g/dL (6.2-8.2); VLDL Calculation 13.34 mg/dL (5.00-40.00)
== END | disposition home or self-care (01) ==
LOC: RADCTMAIN 08:41
PROVIDERS: ATTEND Psychiatry & Neurology Neurology
DX: M51.36 Other intervertebral disc degeneration, lumbar region (principal); M48.061 Spinal stenosis, lumbar region without neurogenic claudication; M47.816 Spondylosis without myelopathy or radiculopathy, lumbar region; M99.73 Connective tissue and disc stenosis of intervertebral foramina of lumbar region; G89.29 Other chronic pain
CPT/HCPCS: 72131; 80053; 80061; 84443; 85027

== ENCOUNTER → 2024-04-29 | Outpatient (CLI) | payer MEDICARE, OTHER ==
--- NOTE | 2024-04-29 14:05 | CT ---
"EXAMINATION TYPE: CT cervical spine wo con CT DLP: 690 mGycm, Automated exposure control for dose reduction was used. DATE OF EXAM: 04/29/2024 12:29 PM COMPARISON: CT cervical spine 11/04/2021, 06/20/2017. CLINICAL INDICATION:Male, 68 years old with history of M48.02 SPINAL STENOSIS, CERVICAL REGION; PHH, neck and left arm pain TECHNIQUE: Axial CT images from the skull base to the inferior aspect of T2 we obtained without intra venous contrast. Coronal and sagittal reformatted images were also reviewed. FINDINGS: Fracture: There is been interval fracture with some sclerosis involving the dens of the C2 vertebral body. Type II. There is slight retrolisthesis at this level. There is fusion of the dens fracture fra gment with the anterior arch of C1. Osseous structures: Multilevel degenerative disc disease changes with endplate spurring and disc oste ophyte complex's. Degenerative bony interbody ankylosis C4-C5. Vertebral alignment: Severe dextroscoliotic curvature of the cervical spine redemonstrated. Galliano at C 5. This appearance limits evaluation. Degenerative grade 1 anterolisthesis of C3 on C4. Trace grade 1 retrolisthesis C6 on C7. Trace grade 1 anterolisthesis C7 on T1. Spinal canal/Neural Foramina: Similar suggested central disc herniation at C2-C3 without significant central canal stenosis. Facet arthropathy at this level with moderate right neural foraminal stenosis . The left neural foramen is patent. Posterior disc osteophyte complex at C3-C4 with mild central canal stenosis. Moderate bilateral neura l foraminal stenosis due to facet arthropathy and uncovertebral joint hypertrophy. Posterior disc osteophyte complex at C4-C5 with uncovertebral joint hypertrophy and facet arthropathy resulting in mild bilateral neural foraminal stenosis and mild central canal stenosis. Posterior disc osteophyte complex at C5-C6 with uncovertebral joint hypertrophy and facet arthropathy resulting in mild central canal stenosis. Moderate left neural foraminal stenosis. Mild right neural foraminal stenosis. Posterior distal aspect complexes C6-C7 without significant central canal stenosis. Bilateral facet a rthropathy suggesting a moderate bilateral neural foraminal stenosis. Limited examination due to streak artifact from patient's shoulders at C7-T1. Neck soft tissues: Prevertebral soft tissues are within normal limits. Other: The airway is patent. The lung apices are clear. Bilateral carotid bulb calcifications with de viation of the right carotid bulb medially near midline at the level of the oropharynx. IMPRESSION: 1. Age-indeterminate type II dens fracture which is new from prior CT 11/04/2021. No edema identified and favored to be more remote. Fusion of the dens fracture fragment to the C1 anterior arch. Correlat e for history of trauma. 2. Similar severe dextroconvex scoliosis of the cervical spine. Overall similar multilevel degenerati ve disc disease with facet arthropathy and uncovertebral joint arthropathy as described above. Varyin g degrees of bilateral neural foraminal stenosis as described above. 3. Similar degenerative grade 1 spondylolisthesis C3-C4, C6-C7, and C7-T1. A Yellow level critical message alert has been initiated for Mindi Simmons MD via the [employer] | Critical Results System on 04/29/2024 2:02 PM. This message alert has been sent to Mindi Simmons MD via the preferences provided by the clinician for the receipt of Radiology Critical Findings. [facility] [id number]."
== END | disposition home or self-care (01) ==
LOC: RADCTMAIN 11:58
PROVIDERS: ATTEND Psychiatry & Neurology Neurology
DX: M99.71 Connective tissue and disc stenosis of intervertebral foramina of cervical region (principal); M48.02 Spinal stenosis, cervical region; M47.812 Spondylosis without myelopathy or radiculopathy, cervical region; M41.82 Other forms of scoliosis, cervical region; M50.30 Other cervical disc degeneration, unspecified cervical region; M43.13 Spondylolisthesis, cervicothoracic region
CPT/HCPCS: 72125

== ENCOUNTER → 2024-07-22 | Outpatient (CLI) | payer MEDICARE, OTHER ==
--- NOTE | 2024-07-22 14:13 | CT ---
EXAMINATION TYPE: CT chest wo con CT DLP: 126 mGycm, Automated exposure control for dose reduction was used. DATE OF EXAM: 07/22/2024 1:47 PM COMPARISON: Chest radiograph 04/03/2019, CT chest 01/07/2018 CLINICAL INDICATION:Male, 68 years old with history of High resolution; R94.2 Abnormal PFT; PHH, SOB TECHNIQUE: Multiple thin axial images were obtained through the chest with supine inspiratory images obtained. Patient could not lay prone and therefore other intervals including prone or expiratory zach ges were not obtained. Please note that due to interval acquisition images as defined by high-resolut ion CT protocol the entire lung parenchyma is not evaluated, therefore small nodular densities may no t be visualized. Evaluation of vascular structures, viscera and lymphatics is limited due to lack of intravenous contrast administration. One or more CT dose reduction strategies were utilized during t his examination. Total DLP 126 mGycm. FINDINGS: LUNGS: There is no evidence of interstitial thickening, significant groundglass opacity, honeycombing or architectural distortion in the lungs. No bronchiectasis. Linear scarring within the left lung ba se an right middle lobe. No acute area of infiltrative or consolidative change. LARGE AIRWAYS: Central airways are patent. PLEURA: No pleural effusion or thickening. HEART AND PERICARDIUM: The heart is moderately enlarged. Cardiac pacemaker leads identified. Coronary artery calcifications. There is no pericardial effusion. Left atrial appendage device. MEDIASTINUM AND MART: No mediastinal or hilar lymphadenopathy or soft tissue mass. VESSELS: Conventional three-vessel aortic arch. Ectasia of the aortic root measuring up to 3.8 cm. As cending thoracic aortic aneurysm measuring up to 4.6 cm stable from prior exam. Descending thoracic a jake is normal in caliber measuring up to 2.6 cm. Atherosclerotic calcification of the aorta and its branches. CHEST WALL AND DIAPHRAGM: Chest wall cardiac pacemaking device. LOWER NECK: Normal. UPPER ABDOMEN: Small hiatal hernia with post gastric sleeve changes MUSCULOSKELETAL: No acute fracture. Post surgical changes from bilateral total shoulder arthroplasty which creates streak artifact limiting evaluation. Scoliotic curvature of the thoracic spine. IMPRESSION: 1. No evidence for interstitial lung disease within limitations described above. 2. Ectasia of the aortic root with stable ascending thoracic aortic aneurysm. [facility], , 07/22/2024 2:11 PM
== END | disposition home or self-care (01) ==
LOC: RADCTMAIN 12:54
PROVIDERS: ATTEND Internal Medicine Cardiovascular Disease
DX: R94.2 Abnormal results of pulmonary function studies
CPT/HCPCS: 71250

== ENCOUNTER → 2024-11-11 | Outpatient (CLI) | payer MEDICARE, OTHER ==
--- NOTE | 2024-11-11 14:23 | XR ---
EXAMINATION TYPE: XR chest 2V DATE OF EXAM: 11/11/2024 COMPARISON: 04/03/2019 CLINICAL INDICATION: Male, 69 years old with history of R06.02 SHORTNESS OF BREATH; , TECHNIQUE: XR chest 2V views of the chest. FINDINGS: Diffuse interstitial pattern with left lower lobe consolidation and small effusion. Heart is enlarged . Multilead cardiac device noted. Postsurgical changes bilateral shoulder degenerative change spine. Correlate for underlying COPD. IMPRESSION: 1. Left lower lobe infiltrate and small effusion correlate for mild CHF otherwise consider pneumonia. [facility], , 11/11/2024 2:21 PM
== END | disposition home or self-care (01) ==
LOC: RADXRMAIN 14:07
PROVIDERS: ATTEND Internal Medicine Geriatric Medicine
DX: J44.9 Chronic obstructive pulmonary disease, unspecified (principal); R91.8 Other nonspecific abnormal finding of lung field; I50.9 Heart failure, unspecified; I51.7 Cardiomegaly
CPT/HCPCS: 71046

== ENCOUNTER → 2025-02-06 | Outpatient (CLI) | payer MEDICARE, OTHER ==
[2025-02-06 15:12] LABS: Basophils # (A) 0.03 X 10*3/uL (0.00-0.10); Basophils % (A) 0.4 %; Eosinophils # (A) 0.11 X 10*3/uL (0.04-0.35); Eosinophils % (A) 1.5 %; HCT 31.6 % (39.6-50.0); HGB 10.2 g/dL (13.0-17.0); Lymphocytes # (A) 1.23 X 10*3/uL (0.90-5.00); Lymphocytes % (A) 16.9 %; MCH 31.7 pg (27.0-32.0); MCHC 32.3 g/dL (32.0-37.0); MCV 98.1 FL (80.0-97.0); Mean Platelet Volume 10.9 FL (9.5-12.2); Monocytes # (A) 0.61 X 10*3/uL (0.20-1.00); Monocytes % (A) 8.4 %; NRBC Per 100 WBC 0 X 10*3/uL (0.00-0.01); Neutrophils # (A) 5.27 X 10*3/uL (1.80-7.70); Neutrophils % (A) 72.4 %; Platelet Count 215 X 10*3/uL (140-440); RBC 3.22 X 10*6/uL (4.40-5.60); WBC 7.28 X 10*3/uL (4.50-10.00)
[2025-02-06 16:48] LABS: Chol/HDL Ratio 3.06 Ratio; LDL Cholesterol,Calculated 82.6 mg/dL (0.0-131.0)
[2025-02-06 16:57] LABS: ALT 17 U/L (10-49); AST 17 U/L (14-35); Albumin/Globulin Ratio 1.82 Ratio (1.60-3.17); Alkaline Phosphatase 112 U/L (41-126); BUN/Creat Ratio 33.25 Ratio (12.00-20.00); Blood Urea Nitrogen 53.2 mg/dL (9.0-27.0); Calcium 9.1 mg/dL (8.7-10.3); Carbon Dioxide 23.9 mmol/L (21.6-31.8); Chloride 105 mmol/L (96-109); Globulin 2.2 g/dL (1.6-3.3); Glucose 104 mg/dL (70-110); Potassium 6.5 mmol/L (3.5-5.5); Sodium 136 mmol/L (135-145); Total Bilirubin 0.4 mg/dL (0.3-1.2); Total Protein 6.2 g/dL (6.2-8.2)
== END | disposition home or self-care (01) ==
LOC: LABWHC1 10:08
PROVIDERS: ATTEND Nurse Practitioner Acute Care
DX: I25.10 Atherosclerotic heart disease of native coronary artery without angina pectoris (principal); I34.0 Nonrheumatic mitral (valve) insufficiency; I10 Essential (primary) hypertension; I48.0 Paroxysmal atrial fibrillation; Z79.899 Other long term (current) drug therapy
CPT/HCPCS: 36415; 80053; 80061; 84443; 85025

== ENCOUNTER 2025-02-07 11:37 | Emergency (ER) | payer MEDICARE, OTHER ==
[2025-02-07 11:55] VITALS: RESP 18
--- NOTE | 2025-02-07 12:11 | ED ---
Recheck HPI - General Chief Complaint: Recheck/Abnormal Lab/Rx Stated Complaint: ABN Labs Source: patient Mode of arrival: ambulatory Limitations: no limitations - History of Present Illness Initial Comments: Patient is a 69-year-old man who arrives to have a recheck for elevated potassium. The patient had routine laboratories yesterday, and then received a call from Dr. Stacy this morning telling him that his potassium was 6.5 and that he needed to have this rechecked at the emergency department. The patient denies symptoms related to this. Denies any increase in fatigue or generalized weakness. He has not noted change in his heart rhythm. He states that he has history of previous ablation for atrial flutter and that every once in a while he has palpitations but not today. No chest pain, dyspnea, change in urination or bowel movements. MD Complaint: abnormal lab Onset/Timin -: days(s) Returns Today for: Called Because of Abnormal Lab/Test Symptoms Since Prior Visit: no new symptoms Context: called for abnormal lab result Associated Symptoms: none - Related Data Home Medications Medication Instructions Recorded Confirmed Tamsulosin HCl [Flomax] 0.4 mg PO BID 04/06/15 01/10/23 Simvastatin 40 mg PO HS 04/14/16 01/10/23 Carvedilol [Coreg] 25 mg PO AC-BID 04/18/16 01/10/23 HYDROcodone/APAP 10-325MG [[place] 1 tab PO BID PRN 01/07/18 01/10/23 10-325] tiZANidine [Zanaflex] 2 mg PO BID 01/07/18 01/10/23 Furosemide [Lasix] 40 mg PO DAILY 05/30/18 01/10/23 Sacubitril/Valsartan [Entresto 97 1 each PO BID 05/30/18 01/10/23 mg-103 mg Tablet] Gabapentin [Neurontin] 300 mg PO TID 05/21/19 01/10/23 Zolpidem [Ambien] 5 mg PO HS PRN 05/21/19 01/10/23 Apixaban [Eliquis] 5 mg PO BID 07/28/20 01/10/23 allopurinoL [Zyloprim] 300 mg PO DAILY 10/05/20 01/10/23 Albuterol Inhaler [Ventolin Hfa 1 - 2 puff INHALATION BID PRN 08/02/21 01/10/23 Inhaler] Albuterol Nebulized [Ventolin 1.25 mg INHALATION Q6H PRN 08/02/21 01/10/23 Nebulized (Accuneb)] bisacodyL [Dulcolax] 5 mg PO TID PRN 10/25/21 01/10/23 Amiodarone [Cordarone] 200 mg PO DAILY 10/10/22 01/10/23 Finasteride [Proscar] 5 mg PO HS 10/10/22 01/10/23 Meloxicam [Mobic] 15 mg PO DAILY 10/10/22 01/10/23 Vitamin A Acetate [Vitamin A] 10,000 unit SL DAILY 10/10/22 01/10/23 Previous Rx's Medication Instructions Recorded Omeprazole 40 mg PO DAILY #90 capsule. 05/26/19 Allergies Allergy/AdvReac Type Severity Reaction Status Date / Time No Known Allergies Allergy Verified 02/07/25 11:55 Review of Systems ROS Statement: Those systems with pertinent positive or pertinent negative responses have been documented in the HPI. ROS Other: All systems not noted in ROS Statement are negative. Constitutional: Denies: fever, chills, weakness Respiratory: Denies: cough, dyspnea Cardiovascular: Reports: as per HPI. Denies: chest pain, palpitations, dyspnea on exertion, edema, syncope Gastrointestinal: Denies: abdominal pain, vomiting, diarrhea Genitourinary: Denies: dysuria, hematuria Musculoskeletal: Reports: back pain (Chronic) Skin: Denies: rash Neurological: Denies: headache, weakness Past Medical History Past Medical History: Atrial Fibrillation, Asthma, Heart Failure, COPD, GERD/Reflux, Hyperlipidemia, Hypertension, Osteoarthritis (OA), Prostate Disorder, Sleep Apnea/CPAP/BIPAP Additional Past Medical History / Comment(s): GOUT, scoliosis, ddd(neck),, back pain, neck problems-PINCHED NERVE, lumbar spine History of Any Multi-Drug Resistant Organisms: None Reported Date of last positivie culture/infection: 04/26/2016 MDRO Source:: Bilat Leg Past Surgical History: AICD, Bariatric Surgery, Bowel Resection, Cardiac Ablation, Orthopedic Surgery, Pacemaker, Tonsillectomy Additional Past Surgical History / Comment(s): CRISELDA AND PLATE IN ankle(left), vasectomy, ruptured bowel- colon resection - colostomy WITH reversal April 2016, COLONOSCOPY, EGD sleeve Gastrectomy 08-18-19, micheal shoulder replacement herina repair x2 umbilical? Past Anesthesia/Blood Transfusion Reactions: No Reported Reaction Additional Past Anesthesia/Blood Transfusion Reaction / Comment(s): . Type of Cardiac Device: Permanent Pacemaker, AICD Device Placement Date:: February 2018 Past Psychological History: No Psychological Hx Reported Smoking Status: Former smoker - Past Family History Father Family Medical History: Cancer Additional Family Medical History / Comment(s): PROSTATE AND LUNG CANCER, IRREGU LAR HEART BEAT Mother Family Medical History: Diabetes Mellitus, Hypertension, Osteoarthritis (OA) General Exam Limitations: no limitations General appearance: alert, in no apparent distress Head exam: Present: atraumatic, normocephalic Eye exam: Present: normal appearance. Absent: scleral icterus, conjunctival injection Neck exam: Present: normal inspection Respiratory exam: Present: normal lung sounds bilaterally. Absent: respiratory distress, wheezes, rales, rhonchi, stridor, accessory muscle use Cardiovascular Exam: Present: regular rate, normal rhythm, normal heart sounds. Absent: systolic murmur, diastolic murmur, rubs, gallop GI/Abdominal exam: Present: soft. Absent: distended, tenderness, guarding, rebound, rigid, mass Extremities exam: Present: normal inspection, normal capillary refill. Absent: pedal edema, calf tenderness Back exam: Present: normal inspection. Absent: CVA tenderness (R), CVA tenderness (L) Neurological exam: Present: alert Skin exam: Present: warm, dry, intact, normal color. Absent: rash Course Vital Signs 02/07/25 11:52 Temperature 97.9 F Pulse Rate 73 Respiratory 18 Rate Blood Pressure 98/64 O2 Sat by Pulse 96 Oximetry Medical Decision Making - Lab Data Result diagrams: 02/07/25 12:13 Lab Results 02/07/25 Range/Units 12:13 Sodium 136 L (137-145) mmol/L Potassium 5.7 H (3.5-5.1) mmol/L Chloride 106 (98-107) mmol/L Carbon Dioxide 20 L (22-30) mmol/L Anion Gap 10 mmol/L BUN 52 H (9-20) mg/dL Creatinine 1.37 H (0.66-1.25) mg/dL Est GFR (CKD-EPI)AfAm 60 (>60 ml/min/1.73 sqM) Est GFR (CKD-EPI)NonAf 52 (>60 ml/min/1.73 sqM) Glucose 93 (74-99) mg/dL Calcium 8.9 (8.4-10.2) mg/dL C-Reactive Protein <0.5 (<1.0) mg/dL - EKG Data -: EKG Interpreted by Me Rate: normal (68 bpm) Interpretation: other (Paced rhythm) Disposition Clinical Impression: Hyperkalemia, CHARLY (acute kidney injury) Disposition: HOME SELF-CARE Condition: Good Instructions (If sedation given, give patient instructions): Hyperkalemia (ED) Additional Instructions: Potassium today was measured at 5.7. Your creatinine today was 1.37. Both of these values should be rechecked in approximately 3 to 4 days to ensure that they are returning to your baseline. In the meantime drink plenty of fluids. Should you develop any symptoms return to the emergency department immediately. Is patient prescribed a controlled substance at d/c from ED?: No Referrals: Arnoldo Tineo MD [Primary Care Provider] - 1-2 days
[2025-02-07] MEDS: SODIUM CHLORIDE 0.9% 500 ML 500 ML IV STA ×2 (12:16→13:21)
[2025-02-07 12:46] LABS: African American GFR (CKD) 60 (>60 ml/min/1.73 sqM); Anion Gap 10 mmol/L; Blood Urea Nitrogen 52 mg/dL (9-20); C Reactive Protein <0.5 mg/dL (<1.0); Calcium 8.9 mg/dL (8.4-10.2); Carbon Dioxide 20 mmol/L (22-30); Chloride 106 mmol/L (98-107); Glucose 93 mg/dL (74-99); Non-African American GFR(CKD) 52 (>60 ml/min/1.73 sqM); Potassium 5.7 mmol/L (3.5-5.1); Sodium 136 mmol/L (137-145)
[2025-02-07] MEDS: SODIUM ZIRCONIUM CYCLOSILICATE 10 GM PACKET PO ONE (13:21)
[2025-02-07 14:02] VITALS: BP 103/66; PULSE 65; TEMP 98.1
== END 2025-02-07 14:02 | disposition home or self-care (01) ==
LOC: EC 11:37
DX: E87.5 Hyperkalemia (principal); N17.9 Acute kidney failure, unspecified; Z87.891 Personal history of nicotine dependence
CPT/HCPCS: 36415; 80048; 86140; 93005; 96360; 96361; 99283

== ENCOUNTER → 2025-04-14 | Outpatient (CLI) | payer MEDICARE, OTHER ==
[2025-04-14 15:04] LABS: HCT 30.8 % (39.6-50.0); HGB 9.6 g/dL (13.0-17.0); MCHC 31.2 g/dL (32.0-37.0); MCV 96.3 FL (80.0-97.0); Mean Platelet Volume 10.9 FL (9.5-12.2); NRBC Per 100 WBC 0 X 10*3/uL (0.00-0.01); Platelet Count 233 X 10*3/uL (140-440); RDW 15.3 % (11.5-14.5); WBC 6.12 X 10*3/uL (4.50-10.00)
[2025-04-14 15:23] LABS: ALT 18 U/L (10-49); AST 23 U/L (14-35); Albumin 3.9 g/dL (3.8-4.9); Albumin/Globulin Ratio 1.86 Ratio (1.60-3.17); Alkaline Phosphatase 110 U/L (41-126); BUN/Creat Ratio 21.64 Ratio (12.00-20.00); Blood Urea Nitrogen 23.8 mg/dL (9.0-27.0); Calcium 8.8 mg/dL (8.7-10.3); Carbon Dioxide 26.4 mmol/L (21.6-31.8); Chloride 103 mmol/L (96-109); Chol/HDL Ratio 2.73 Ratio; Globulin 2.1 g/dL (1.6-3.3); Glucose 101 mg/dL (70-110); LDL Cholesterol,Calculated 66.5 mg/dL (0.0-131.0); Potassium 4.8 mmol/L (3.5-5.5); Sodium 139 mmol/L (135-145); Total Bilirubin 0.9 mg/dL (0.3-1.2); VLDL Calculation 18.38 mg/dL (5.00-40.00)
== END | disposition home or self-care (01) ==
LOC: LABWHC1 10:10
DX: I10 Essential (primary) hypertension (principal); E78.5 Hyperlipidemia, unspecified
CPT/HCPCS: 36415; 80053; 80061; 85027